=== PATIENT | male | born 1960 ===

== ENCOUNTER 2018-05-09 23:33 | Inpatient (IN) | payer MEDICAID, OTHER ==
[2018-05-10] MEDS ORDERED: Sodium Chloride 0.9% 1,000 ML IV STA ×3 (00:11→01:10)
[2018-05-10 00:24] LABS: BASO # 0.1 K/mm3 (0.0-2.0); BASO % 0.2 % (0.0-3.0); EOS % 0.1 % (1.5-5.0); GRAN # 38.08 (1.4-6.5); GRAN % 84.4 % (50.0-68.0); HEMOGLOBIN 14.8 g/dL (14.0-18.0); LYMPH # 3.1 (1.2-3.4); LYMPH % 6.9 % (22.0-35.0); MEAN CELL VOLUME 95.4 fl (80.0-105.0); MEAN CORPUSCULAR HEMOGLOBIN 30.9 pg (25.0-35.0); MEAN CORPUSCULAR HGB CONC 32.4 g/dl (31.0-37.0); MONO # 3.8 (0.1-0.6); MONO % 8.4 % (1.0-6.0); RBC 4.79 10^6/uL (3.5-6.1); RED CELL DISTRIBUTION WIDTH 12.4 % (11.5-14.5)
[2018-05-10 00:27] LABS: INR 1.45; PROTHROMBIN TIME 16.6 SECONDS (9.4-12.5); WHITE BLOOD COUNT 45.1 10^3/ul (4.5-11.0)
[2018-05-10 00:36] LABS: TROPONIN I 0.03 ng/mL
[2018-05-10 01:00] LABS: VENOUS BLOOD GAS PO2 62 mm/Hg (30-55)
[2018-05-10 01:05] LABS: ALB/GLOB RATIO 2.3 (1.1-1.8); ALT/SGPT 27 U/L (7-56); AST/SGOT 31 U/L (17-59); BLOOD UREA NITROGEN 44 mg/dL (7-21); CALCIUM 9.2 mg/dL (8.4-10.5); GFR NON-AFRICAN AMERICAN 16
[2018-05-10 01:07] LABS: VENOUS BLOOD PH < 6.80 (7.32-7.43)
--- NOTE | 2018-05-10 01:19 | ED PDOC ---
Arrival/HPI - General Chief Complaint: High Blood Sugar Time Seen by Provider: 05/10/18 00:09 Historian: EMS EM Caveat: Acuity of Condition - Critical Care Critical Care Minutes: 45 minutes - History of Present Illness Narrative History of Present Illness (Text): 05/10/18 00:05 58 y/o M w/ h/o HTN, HLD, DM I(w/ insulin pump) presents to the emergency department by EMS after being found writhing in pain and frothing at the mouth at home. Per patient's brother, the patient called him stating he didn't feel well, but was reluctant to call the ambulance for transport to the hospital. EMS was called by the patient's brother. The patient was inadvertently administered glucose on the field prior to checking patient's glucose level. A more complete HPI was unable to be obtained due to the patient's clinical condition PMD: Dr. Daniel Barnes Time/Duration: Prior to Arrival Symptom Course: Worsening Quality: Unable to Describe Severity Level: Severe Activities at Onset: Rest Context: Home Past Medical History - Provider Review Nursing Documentation Reviewed: Yes - Travel History Have you recently traveled outside [place] w/in the past 3 mons?: No - Infectious Disease Hx of Infectious Diseases: None - Cardiac Hx Cardiac Disorders: Yes (AV problems) Hx Hypertension: Yes - Pulmonary Hx Respiratory Disorders: No - Neurological Other/Comment: unresponsive - HEENT Hx HEENT Disorder: No - Renal Hx Renal Disorder: No - Endocrine/Metabolic Hx Diabetes Mellitus Type 1: Yes - Hematological/Oncological Hx Blood Disorders: No - Integumentary Hx Dermatological Disorder: No - Musculoskeletal/Rheumatological Hx Musculoskeletal Disorders: No Hx Falls: Yes - Gastrointestinal Hx Gastrointestinal Disorders: No - Genitourinary/Gynecological Hx Genitourinary Disorders: No - Psychiatric Hx Psychophysiologic Disorder: No Hx Substance Use: No (denied by family) - Surgical History Other/Comment: Unknown by family. - Anesthesia Hx Anesthesia: No - Suicidal Assessment Feels Threatened In Home Enviroment: No Family/Social History - Physician Review Nursing Documentation Reviewed: Yes Family/Social History: No Known Family HX Smoking Status: Unknown If Ever Smoked Hx Alcohol Use: No (denied by family) Hx Substance Use: No (denied by family) Hx Substance Use Treatment: No Allergies/Home Meds Allergies/Adverse Reactions: Allergies No Known Allergies Allergy (Verified 06/30/12 17:03) Home Medications: Home Meds Medication Instructions Recorded Confirmed Atorvastatin Calcium 20 mg PO DAILY 06/30/12 06/30/12 Insulin Aspart, Recombinant 100 unit SC 06/30/12 06/30/12 [Novolog] Insulin Detemir [Levemir] 17 unit SC HS 06/30/12 06/30/12 Niacin [Niaspan] 500 mg PO DAILY 06/30/12 06/30/12 Valsartan [Diovan] 160 mg PO DAILY 06/30/12 06/30/12 Review of Systems - Physician Review All systems were reviewed & negative as marked: Yes - Review of Systems Systems not reviewed;Unavailable: Acuity of Condition Physical Exam Vital Signs Reviewed: Yes Vital Signs Temp Pulse Resp BP Pulse Ox 05/10/18 03:44 122 H 24 118/60 100 05/10/18 01:51 113 H 30 H 108/64 100 05/10/18 00:41 129 H 22 113/58 L 100 05/10/18 00:15 96.5 F L 129 H 22 92/65 L 96 05/09/18 23:56 96.5 F L 129 H 22 92/65 L 96 Temperature: Hypothermic Blood Pressure: Hypotensive Pulse: Tachycardic Respiratory Rate: Normal Appearance: Positive for: Well-Appearing, Non-Toxic, Comfortable Pain Distress: None Mental Status: Positive for: Lethargic Finger Stick Blood Glucose: 500 - Systems Exam Head: Present: Atraumatic, Normocephalic Pupils: Present: PERRL Extroacular Muscles: Present: EOMI Conjunctiva: Present: Normal Mouth: Present: Dry, Drooling Neck: Present: Normal Range of Motion Respiratory/Chest: Present: Clear to Auscultation, Good Air Exchange. No: Respiratory Distress, Accessory Muscle Use Cardiovascular: Present: Regular Rate and Rhythm, Normal S1, S2. No: Murmurs Abdomen: Present: Tenderness. No: Distention, Normal Bowel Sounds, Peritoneal Signs Back: Present: Normal Inspection Upper Extremity: Present: Normal Inspection. No: Cyanosis, Edema Lower Extremity: Present: Normal Inspection. No: Edema Neurological: Present: GCS=15, CN II-XII Intact Skin: Present: Warm, Dry, Normal Color. No: Rashes Psychiatric: Present: Agitated, Lethargic, Other Medical Decision Making ED Course and Treatment: 05/10/18 00:05 Impression: 58 y/o M w/ h/o DM I found writhing in pain most suspicious of DKA Plan: -- VBG -- Labs -- EKG -- Ativan --Rocephin & vancomycin --IV Fluids --Insulin drip --Calcium gluconate, albuterol, sodium bicarbonate -- Blood Cultures -- UA/Urine cultures -- Reassess and disposition Prior Visits: Notes and results from pervious visits were reviewed. Progress Notes: EKG ordered and interpreted by me Interpretation: A-Fib with RVR at 148 BPM. 05/10/18 01:13 Patient's leukocytes 45.1, lactated 11.8, and Glucose 1173. Potassium noted to be 8.5. Code sepsis called. Antibiotics and fluids ordered. Hyperkalemia protocol initiated. Call placed to Dr. Rodarte(bin worker). 05/10/18 02:03 Discussed with patient's brother who is at bed side. States patient had been having personal issues recently and having poor control of glucose levels and refused to present to the hospital. 05/10/18 02:26 Case discussed with medical unit secretary and Dr. Garibay who is aware and agrees with plan to admit to ICU. Accepts patient into hospitalist service. - Critical Care Critical Care Minutes: 45 minutes - Lab Interpretations Microbiology Results: Microbiology Results 05/10/18 00:20 Blood Blood Culture - Preliminary NO GROWTH AFTER 48 HOURS 05/09/18 23:50 Blood Blood Culture - Preliminary NO GROWTH AFTER 48 HOURS Lab Results: 05/09/18 23:50 05/09/18 23:50 Lab Results 05/10/18 02:50: pO2 49, VBG pH < 6.80 L*, VBG pCO2 37.0 L, VBG HCO3 TEST NOT PERFORMED, VBG O2 Sat (Calc) 83.9 H, VBG Base Excess TEST NOT PERFORMED, VBG Potassium 8.1 H*, Sodium 130.0 L, Chloride 89.0 L, Glucose > 750 H*, Lactate 10.3 H*, FiO2 21.0, Venous Blood Potassium 8.1 H* 05/10/18 02:43: POC Glucose (mg/dL) > 500 H* 05/09/18 23:50: pO2 62 H, VBG pH < 6.80 L*, VBG pCO2 24.0 L, VBG O2 Sat (Calc) 87.2 H, VBG Potassium 8.7 H*, Sodium 128.0 L, Chloride 80.0 L, Glucose > 750 H* D, Lactate 11.8 H*, FiO2 21.0, Venous Blood Potassium 8.7 H* 05/09/18 23:50: Sodium 130 L, Chloride 87 L, Potassium 8.0 H* D, Carbon Dioxide < 5 L D, Anion Gap 46 H, BUN 44 H, Creatinine 3.9 H, Est GFR ( Amer) 19, Est GFR (Non-Af Amer) 16, Random Glucose 1173 H* D, Calcium 9.2, Total Bilirubin 0.4, AST 31, ALT 27, Alkaline Phosphatase 119, Troponin I 0.03 D, Total Protein 7.2, Albumin 5.0 H, Globulin 2.2, Albumin/Globulin Ratio 2.3 H, Lipase 4784 H 05/09/18 23:50: PT 16.6 H, INR 1.45, APTT 31.0 05/09/18 23:50: WBC 45.1 H* D, RBC 4.79, Hgb 14.8, Hct 45.7, MCV 95.4, MCH 30.9 , MCHC 32.4, RDW 12.4, Plt Count 553 H, MPV 11.0, Gran % 84.4 H, Lymph % (Auto) 6.9 L, [place] % (Auto) 8.4 H, Eos % (Auto) 0.1 L, Baso % (Auto) 0.2, Gran # 38.08 H, Lymph # (Auto) 3.1, [place] # (Auto) 3.8 H, Eos # (Auto) 0.0, Baso # (Auto) 0.10 05/09/18 23:37: POC Glucose (mg/dL) > 500 H* I have reviewed the lab results: Yes - RAD Interpretation Radiology Orders: 05/10/18 02:24 CHEST PORTABLE [RAD] Stat - EKG Interpretation Interpreted by ED Physician: Yes Type: 12 lead EKG - Medication Orders Current Medication Orders: Acetaminophen (Tylenol 325mg Tab) 650 mg PO Q6H PRN PRN Reason: Headache Last Admin: 05/12/18 11:22 Dose: 650 mg MAR Pain/Vitals Document 05/12/18 11:22 [facility] (Rec: 05/12/18 11:22 [facility] [id number]) Pain Reassessment Is This A Pain ReAssessment? No Sleep Is patient sleeping during reassessment? No Pain Scale Used Pain Scale Used Numeric Location Pain Location Body Excel Expert Description Intermittent Aspirin (Ecotrin) 81 mg PO DAILY [facility] Last Admin: 05/12/18 09:38 Dose: 81 mg Atorvastatin Calcium (Lipitor) 40 mg PO DIN [facility] Last Admin: 05/11/18 17:14 Dose: Dextrose (Dextrose 50% Inj) 0 ml IV STAT PRN; Protocol PRN Reason: Hypoglycemia Protocol Dextrose (Dextrose 5% In Water 1000 Ml) 1,000 mls @ 0 mls/hr IV .Q0M PRN; Protocol; Per Protocol PRN Reason: Hypoglycemia Protocol Heparin Sodium/Sodium Chloride (Heparin 90500 Units/250ml 1/2 Normal Saline) 25 ,000 units in 250 mls @ 10.102 mls/hr IV .Q24H [facility]; 12 UNITS/KG/HR PRN Reason: Protocol Last Admin: 05/12/18 01:19 Dose: 12 units/kg/hr, 10.102 mls/hr eMAR Start Stop Document 05/12/18 01:19 [facility] (Rec: 05/12/18 01:20 [id number]) Intravenous Solution Start Date 05/12/18 Start Time 01:19 Titration Intervention Document 05/12/18 01:19 MPD (Rec: 05/12/18 01:20 [id number]) Titration Intake Cumulative Intake (Rx) 250 Waste Amount 0 Container Volume 250 Titration Dosing Titration Dose 12 IV Rate 10.102 Intake/Decrease Started/Running Cumulative Dose 67023 Potassium Chloride 20 meq/ (Sodium Chloride) 1,010 mls @ 75 mls/hr IV .[id number] [facility] Insulin Detemir (Levemir) 30 unit SC HS [facility] Insulin Human Lispro (Humalog Low) 0 units SC ACHS [facility] PRN Reason: Protocol Last Admin: 05/12/18 11:30 Dose: Not Given Non-Admin Reason: Blood Sugar Parameter MAR Blood Glucose Document 05/12/18 11:30 [facility] (Rec: 05/12/18 14:11 [facility] [id number]) Blood Glucose Finger Stick Blood Glucose (70-120) 263 Insulin Human Lispro (Humalog) 10 units SC AC [facility] Last Admin: 05/12/18 11:18 Dose: 10 unit MAR Blood Glucose Document 05/12/18 11:18 [facility] (Rec: 05/12/18 11:18 [facility] [id number]) Blood Glucose Finger Stick Blood Glucose (70-120) 263 Subcutaneous Administrations Document 05/12/18 11:18 [facility] (Rec: 05/12/18 11:18 [facility] [id number]) Injection Site MAR Injection Site Right Arm Charges for Administration # of Subcutaneous Administrations 1 Metoprolol Tartrate (Lopressor) 25 mg PO BID [facility] Pantoprazole Sodium (Protonix Ec Tab) 40 mg PO 0600 [facility] Discontinued Medications Calcium Gluconate (Calcium Gluconate Iv) 1,000 mg IVP ONCE ONE Stop: 05/10/18 02:24 Last Admin: 05/10/18 02:38 Dose: 1,000 mg IVP Administration Document 05/10/18 02:38 CNR (Rec: 05/10/18 02:38 CNR [id number]) Charges for Administration # of IVP Administrations 1 Heparin Sodium (Porcine) (Heparin) 5,000 units SC 0700 [facility] PRN Reason: Protocol Heparin Sodium (Porcine) (Heparin) 5,000 units SC BID [facility] PRN Reason: Protocol Last Admin: 05/10/18 18:55 Dose: 5,000 units Subcutaneous Administrations Document 05/10/18 18:55 [facility] (Rec: 05/10/18 18:55 [facility] [id number]) Charges for Administration # of Subcutaneous Administrations 1 Sodium Chloride (Sodium Chloride 0.9%) 1,000 mls @ 999 mls/hr IV .Q1H1M STA Stop: 05/10/18 01:11 Last Admin: 05/10/18 00:23 Dose: 999 mls/hr eMAR Start Stop Document 05/10/18 00:23 CNR (Rec: 05/10/18 00:23 CNR [id number]) Intravenous Solution Start Date 05/10/18 Start Time 00:23 End Date 05/10/18 End time 01:23 Total Infusion Time 60 Sodium Chloride (Sodium Chloride 0.9%) 1,000 mls @ 999 mls/hr IV .Q1H1M STA Stop: 05/10/18 02:09 Last Admin: 05/10/18 01:39 Dose: 999 mls/hr eMAR Start Stop Document 05/10/18 01:39 CNR (Rec: 05/10/18 01:39 CNR [id number]) Intravenous Solution Start Date 05/10/18 Start Time 01:39 End Date 05/10/18 End time 02:39 Total Infusion Time 60 Sodium Chloride (Sodium Chloride 0.9%) 1,000 mls @ 999 mls/hr IV .Q1H1M STA Stop: 05/10/18 02:10 Last Admin: 05/10/18 02:07 Dose: 999 mls/hr eMAR Start Stop Document 05/10/18 02:07 CNR (Rec: 05/10/18 02:07 CNR [id number]) Intravenous Solution Start Date 05/10/18 Start Time 02:07 End Date 05/10/18 End time 03:07 Total Infusion Time 60 Ceftriaxone Sodium (Rocephin 1 Gram Ivpb) 1 gm in 100 mls @ 100 mls/hr IVPB ONCE ONE PRN Reason: Protocol Stop: 05/10/18 02:21 Last Admin: 05/10/18 01:38 Dose: 100 mls/hr eMAR Start Stop Document 05/10/18 01:38 CNR (Rec: 05/10/18 01:38 CNR [id number]) Intravenous Solution Start Date 05/10/18 Start Time 01:38 End Date 05/10/18 End time 02:08 Total Infusion Time 30 Vancomycin HCl (Vancomycin 1gm) 1 gm in 250 mls @ 167 mls/hr IVPB STAT STA PRN Reason: Protocol Stop: 05/10/18 02:51 Last Admin: 05/10/18 02:13 Dose: 167 mls/hr eMAR Start Stop Document 05/10/18 02:13 CNR (Rec: 05/10/18 02:13 CNR [id number]) Intravenous Solution Start Date 05/10/18 Start Time 02:13 End Date 05/10/18 End time 03:43 Total Infusion Time 90 Insulin Human Regular 100 (units/ Sodium Chloride) 100 mls @ 6 mls/hr IV .[id number] PRN; Protocol; Per Protocol PRN Reason: TITRATE PER MD ORDER Last Admin: 05/10/18 03:01 Dose: 6 mls/hr eMAR Start Stop Document 05/10/18 03:01 CNR (Rec: 05/10/18 03:01 CNR [id number]) Intravenous Solution Start Date 05/10/18 Start Time 03:01 MAR Blood Glucose Document 05/10/18 03:01 CNR (Rec: 05/10/18 03:01 CNR [id number]) Blood Glucose Finger Stick Blood Glucose (70-120) 500 Sodium Chloride (Sodium Chloride 0.45%) 1,000 mls @ 1,000 mls/hr IV .Q1H [facility] Last Admin: 05/10/18 03:01 Dose: 1,000 mls/hr eMAR Start Stop Document 05/10/18 03:01 CNR (Rec: 05/10/18 03:01 CNR [id number]) Intravenous Solution Start Date 05/10/18 Start Time 03:01 End Date 05/10/18 End time 04:01 Total Infusion Time 60 Sodium Chloride (Sodium Chloride 0.45%) 1,000 mls @ 1,000 mls/hr IV .Q1H [facility] Stop: 05/10/18 04:14 Last Admin: 05/10/18 03:19 Dose: 1,000 mls/hr eMAR Start Stop Document 05/10/18 03:19 CNR (Rec: 05/10/18 03:20 CNR [id number]) Intravenous Solution Start Date 05/10/18 Start Time 03:20 End Date 05/10/18 End time 04:20 Total Infusion Time 60 Sodium Chloride (Sodium Chloride 0.9%) 1,000 mls @ 200 mls/hr IV .Q5H [facility] Last Admin: 05/10/18 08:00 Dose: 200 mls/hr eMAR Start Stop Document 05/10/18 08:00 [facility] (Rec: 05/10/18 09:18 [id number]) Intravenous Solution Start Date 05/10/18 Start Time 08:00 Doxycycline Hyclate 100 mg/ (Sodium Chloride) 100 mls @ 100 mls/hr IVPB Q12 [facility] PRN Reason: Protocol Last Admin: 05/10/18 09:08 Dose: 100 mls/hr Ceftriaxone Sodium (Rocephin 1 Gram Ivpb) 1 gm in 100 mls @ 100 mls/hr IVPB DAILY [facility] PRN Reason: Protocol Last Admin: 05/10/18 09:04 Dose: 100 mls/hr eMAR Start Stop Document 05/10/18 09:04 [facility] (Rec: 05/10/18 09:04 [facility] [place] [id number]) Intravenous Solution Start Date 05/10/18 Start Time 09:04 End Date 05/10/18 End time 10:04 Total Infusion Time 60 Insulin Human Regular 100 (units/ Sodium Chloride) 100 mls @ 0 mls/hr IV .Q0M PRN; Protocol; Per Protocol PRN Reason: TITRATE PER MD ORDER Insulin Human Regular 100 (units/ Sodium Chloride) 100 mls @ 16 mls/hr IV .Q6H15M PRN; Protocol; 16 UNITS/HR PRN Reason: TITRATE PER MD ORDER Last Titration: 05/10/18 18:30 Dose: 0 units/hr, 0 mls/hr Titration Intervention Document 05/10/18 18:30 [facility] (Rec: 05/10/18 18:49 [facility] [id number]) Titration Intake Titration Intake 3 Cumulative Intake 59 Cumulative Intake (Rx) 159 Waste Amount 0 Container Volume 41 Titration Dosing Titration Dose 0 IV Rate 0 Intake/Decrease Paused Cumulative Dose 159 Meropenem 500 mg/ Sodium (Chloride) 50 mls @ 100 mls/hr IVPB Q12 [facility] PRN Reason: Protocol Stop: 05/17/18 10:16 Last Admin: 05/11/18 21:27 Dose: 100 mls/hr eMAR Start Stop Document 05/11/18 21:27 MPD (Rec: 05/11/18 21:28 MPD [facility] [id number]) Intravenous Solution Start Date 05/11/18 Start Time 21:25 End Date 05/11/18 End time 21:55 Total Infusion Time 30 Calcium Gluconate 1,000 mg/ (Dextrose) 110 mls @ 110 mls/hr IVPB ONCE ONE Stop: 05/10/18 13:32 Last Admin: 05/10/18 14:10 Dose: 110 mls/hr eMAR Start Stop Document 05/10/18 14:10 [facility] (Rec: 05/10/18 14:10 [facility] [id number]) Intravenous Solution Start Date 05/10/18 Start Time 14:10 End Date 05/10/18 End time 15:10 Total Infusion Time 60 Potassium Chloride (Potassium Chloride 10 Meq/100 Ml) 10 meq in 100 mls @ 50 mls/hr IVPB Q2H [facility] Stop: 05/10/18 16:44 Last Admin: 05/10/18 13:58 Dose: 50 mls/hr eMAR Start Stop Document 05/10/18 13:58 [facility] (Rec: 05/10/18 13:59 [id number]) Intravenous Solution Start Date 05/10/18 Start Time 13:58 End Date 05/10/18 End time 15:58 Total Infusion Time 120 Magnesium 2 gm/50 ml NS (Magnesium Sulfate 2 Gm/50 Ml Ns) 2 gm in 50 mls @ 50 mls/hr IVPB ONCE ONE Stop: 05/10/18 15:41 Last Admin: 05/10/18 16:03 Dose: 50 mls/hr eMAR Start Stop Document 05/10/18 16:03 [facility] (Rec: 05/10/18 16:04 [id number]) Intravenous Solution Start Date 05/10/18 Start Time 16:04 End Date 05/10/18 End time 17:04 Total Infusion Time 60 Potassium Chloride (Potassium Chloride 10 Meq/100 Ml) 10 meq in 100 mls @ 50 mls/hr IVPB Q2H [facility] Stop: 05/10/18 18:44 Last Admin: 05/10/18 16:43 Dose: 50 mls/hr eMAR Start Stop Document 05/10/18 16:43 [facility] (Rec: 05/10/18 16:44 [facility] [id number]) Intravenous Solution Start Date 05/10/18 Start Time 18:10 End Date 05/10/18 End time 20:10 Total Infusion Time 120 Sodium Chloride (Sodium Chloride 0.45%) 1,000 mls @ 75 mls/hr IV .[id number] [facility] Last Admin: 05/10/18 16:10 Dose: 75 mls/hr eMAR Start Stop Document 05/10/18 16:10 [facility] (Rec: 05/10/18 16:11 [id number]) Intravenous Solution Start Date 05/10/18 Start Time 16:11 Potassium Chloride 20 meq/ (Sodium Chloride) 1,010 mls @ 150 mls/hr IV .Q6H44M [facility] Last Admin: 05/10/18 18:54 Dose: 150 mls/hr eMAR Start Stop Document 05/10/18 18:54 [facility] (Rec: 05/10/18 18:54 [id number]) Intravenous Solution Start Date 05/10/18 Start Time 18:54 Potassium Chloride 20 meq/ (Sodium Chloride) 1,010 mls @ 100 mls/hr IV .Q10H6M [facility] Last Admin: 05/12/18 05:00 Dose: 100 mls/hr eMAR Start Stop Document 05/12/18 05:00 MPD (Rec: 05/12/18 07:42 MPD [id number]) Intravenous Solution Start Date 05/12/18 Start Time 05:00 Insulin Detemir (Levemir) 20 unit SC [facility] Last Admin: 05/10/18 21:58 Dose: 20 units MAR Blood Glucose Document 05/10/18 21:58 [facility] (Rec: 05/10/18 21:59 [facility] [id number]) Blood Glucose Finger Stick Blood Glucose (70-120) 209 Subcutaneous Administrations Document 05/10/18 21:58 [facility] (Rec: 05/10/18 21:59 [facility] [id number]) Injection Site MAR Injection Site Right Abdomen Charges for Administration # of Subcutaneous Administrations 1 Insulin Detemir (Levemir) 24 unit SC [facility] Last Admin: 05/11/18 21:32 Dose: 24 u MAR Blood Glucose Document 05/11/18 21:32 MPD (Rec: 05/11/18 21:33 MPD [id number]) Blood Glucose Finger Stick Blood Glucose (70-120) 76 Subcutaneous Administrations Document 05/11/18 21:32 MPD (Rec: 05/11/18 21:33 MPD [id number]) Injection Site MAR Injection Site Left Deltoid Charges for Administration # of Subcutaneous Administrations 1 Insulin Human Lispro (Humalog) 8 units SC [facility] Last Admin: 05/11/18 10:03 Dose: 8 u MAR Blood Glucose Document 05/11/18 10:03 MMA (Rec: 05/11/18 10:03 MMA [id number]) Blood Glucose Finger Stick Blood Glucose (70-120) 245 Subcutaneous Administrations Document 05/11/18 10:03 MMA (Rec: 08/18/18 10:03 MMA [id number]) Injection Site MAR Injection Site Left Arm Charges for Administration # of Subcutaneous Administrations 1 Insulin Human Lispro (Humalog) 10 units SC AC [facility] Last Admin: 05/11/18 17:21 Dose: 10 u MAR Blood Glucose Document 05/11/18 17:21 MMA (Rec: 05/11/18 17:21 [facility] [id number]) Blood Glucose Finger Stick Blood Glucose (70-120) 187 Subcutaneous Administrations Document 05/11/18 17:21 MMA (Rec: 05/11/18 17:21 [facility] [id number]) Injection Site MAR Injection Site Right Abdomen Charges for Administration # of Subcutaneous Administrations 1 Insulin Human Lispro (Humalog) 6 units SC AC [facility] Last Admin: 05/12/18 08:17 Dose: 8 unit MAR Blood Glucose Document 05/12/18 08:17 [facility] (Rec: 05/12/18 08:17 [id number] Blood Glucose Finger Stick Blood Glucose (70-120) 500 Subcutaneous Administrations Document 05/12/18 08:17 KA (Rec: 05/12/18 08:17 [facility] [id number]) Injection Site MAR Injection Site Right Arm Charges for Administration # of Subcutaneous Administrations 1 Insulin Human Lispro (Humalog) 12 units SC ONCE ONE Stop: 05/12/18 07:22 Insulin Human Regular (Humulin R) 10 units SC STAT [facility] Stop: 05/10/18 02:33 Last Admin: 05/10/18 02:38 Dose: 10 u Subcutaneous Administrations Document 05/10/18 02:38 CNR (Rec: 05/10/18 02:38 CNR [id number]) Charges for Administration # of Subcutaneous Administrations 1 Insulin Human Regular (Humulin R) 6 units IV STAT [facility] Stop: 05/10/18 03:26 Last Admin: 05/10/18 03:38 Dose: 6 u eMAR Start Stop Document 05/10/18 03:38 CNR (Rec: 05/10/18 03:38 CNR [id number]) Intravenous Solution Start Date 05/10/18 Start Time 03:38 Lorazepam (Ativan) 1 mg IVP ONCE ONE PRN Reason: Protocol Stop: 05/10/18 01:57 Last Admin: 05/10/18 02:07 Dose: 1 mg IVP Administration Document 05/10/18 02:07 CNR (Rec: 05/10/18 02:07 CNR [id number]) Charges for Administration # of IVP Administrations 1 Metoprolol Tartrate (Lopressor) 25 mg PO STAT [facility] Stop: 05/10/18 22:16 Last Admin: 05/10/18 23:07 Dose: 25 mg MAR Pulse and Blood Pressure Document 05/10/18 23:07 [facility] (Rec: 05/10/18 23:09 [facility] [id number]) Pulse Pulse Rate (60-90) 90 Blood Pressure Blood Pressure (100/60-150/90) 110/73 Metoprolol Tartrate (Lopressor) 25 mg PO DAILY [facility] Last Admin: 05/12/18 09:38 Dose: 25 mg MAR Pulse and Blood Pressure Document 05/12/18 09:38 KA (Rec: 05/12/18 09:41 KA [id number]) Blood Pressure Blood Pressure (100/60-150/90) 151/90 Pantoprazole Sodium (Protonix Inj) 40 mg IVP 0700 [facility] Last Admin: 05/12/18 07:13 Dose: 40 mg IVP Administration Document 05/12/18 07:13 MPD (Rec: 05/12/18 07:14 MPD [facility] [id number]) Charges for Administration # of IVP Administrations 1 Pantoprazole Sodium (Protonix Inj) 40 mg IVP Q12 [facility] Last Admin: 05/11/18 21:30 Dose: 40 mg IVP Administration Document 05/11/18 21:30 MPD (Rec: 05/11/18 21:30 MPD [facility] [id number]) Charges for Administration # of IVP Administrations 1 Pneumococcal Polyvalent Vaccine (Pneumovax 23 Vaccine) 0.5 ml IM .ONCE ONE Stop: 05/10/18 09:04 Potassium Chloride (Potassium Chloride Oral Soln) 40 meq PO STAT [facility] Stop: 05/10/18 14:43 Last Admin: 05/10/18 16:04 Dose: 40 meq Sodium Bicarbonate (Sodium Bicarbonate 8.4% (50 Meq) Syringe) 50 meq IVP ONCE ONE Stop: 05/10/18 02:24 Last Admin: 05/10/18 02:37 Dose: 50 meq IVP Administration Document 05/10/18 02:37 CNR (Rec: 05/10/18 02:38 CNR [id number]) Charges for Administration # of IVP Administrations 1 Sodium Bicarbonate (Sodium Bicarbonate 8.4% (50 Meq) Syringe) 50 meq IVP ONCE ONE Stop: 05/10/18 02:41 Last Admin: 05/10/18 02:37 Dose: 50 meq IVP Administration Document 05/10/18 02:37 CNR (Rec: 05/10/18 02:42 CNR [id number]) Charges for Administration # of IVP Administrations 1 Sodium Bicarbonate (Sodium Bicarbonate 8.4% (50 Meq) Syringe) 100 meq IVP ONCE ONE Stop: 05/10/18 03:22 Last Admin: 05/10/18 03:37 Dose: 100 meq IVP Administration Document 05/10/18 03:37 CNR (Rec: 05/10/18 03:37 CNR [id number]) Charges for Administration # of IVP Administrations 1 - Scribe Statement The provider has reviewed the documentation as recorded by the Chance Aleman Provider Scribe Attestation: All medical record entries made by the Scribmarilee were at my direction and personally dictated by me. I have reviewed the chart and agree that the record accurately reflects my personal performance of the history, physical exam, medical decision making, and the department course for this patient. I have also personally directed, reviewed, and agree with the discharge instructions and disposition. Disposition/Present on Arrival - Present on Arrival Any Indicators Present on Arrival: No History of DVT/PE: No History of Uncontrolled Diabetes: No Urinary Catheter: No History of Decub. Ulcer: No History Surgical Site Infection Following: None - Disposition Have Diagnosis and Disposition been Completed?: Yes Diagnosis: DKA (diabetic ketoacidoses) Disposition: HOSPITALIZED Disposition Time: 02:00 Patient Plan: ICU Condition: SERIOUS
[2018-05-10] MEDS ORDERED: Vancomycin 1gm in NS 250ml 1 GM/250 ML BAG IVPB STA (01:22)
[2018-05-10] MEDS ORDERED: cefTRIAXone 1 gm 1 GM/100 ML BAG IVPB ONE (01:22)
[2018-05-10 01:37] LABS: LIPASE 4784 U/L (23-300)
[2018-05-10] MEDS ORDERED: Sodium Bicarbonate (8.4%) 50 Meq Syringe IVP ONE ×4 (02:23→03:31)
[2018-05-10] MEDS ORDERED: Insulin Regular 100 UNITS in Sodium Chloride 0.9% 99 ML IV PRN ×3 (02:26→08:04)
[2018-05-10] MEDS ORDERED: Insulin Regular 1 UNITS/0.01 ML ML SC STA (02:32)
[2018-05-10] MEDS ORDERED: Insulin Regular 1 UNITS/0.01 ML ML ONE (02:32)
[2018-05-10] MEDS ORDERED: SODIUM BICARBONATE IV SCH (02:45)
[2018-05-10] MEDS ORDERED: SODIUM CHLORIDE 0.45% IV SCH (02:45)
[2018-05-10] MEDS ORDERED: Dextrose 50% SYRINGE Inj (50 ml) IV PRN (02:49)
[2018-05-10] MEDS ORDERED: Sodium Chloride 0.45% 1,000 ML IV SCH ×3 (03:00→15:30)
[2018-05-10 03:06] LABS: VENOUS BLOOD GAS PO2 49 mm/Hg (30-55)
[2018-05-10 03:15] LABS: VENOUS BLOOD PH < 6.80 (7.32-7.43)
[2018-05-10] MEDS ORDERED: Insulin Regular 1 UNITS/0.01 ML ML IV STA (03:25)
--- NOTE | 2018-05-10 04:19 | CP.PCM.HP ---
<JyotiFernando huntkoko - Last Filed: 05/10/18 05:52> History of Present Illness - History of Present Illness History of Present Illness: Joe Amin, PGY-1, Internal Medicine History and Physical for Dr. Garibay CC: multiple episodes of nausea, vomiting, and diarrhea 58 year old male with past medical history of diabetes with insulin pump, hypertension, bicuspid aortic valve, rhabdomyolysis, and hyperlipidemia presents with hyperventilation and foaming at the mouth on presentation. Patient is altered. Per daughter, patient had chicken two days ago, and yesterday, patient started to have multiple bouts of abdominal pain, nausea, vomiting, and diarrhea all day. Patient was told to come to the emergency department for evaluation and finally did so late last night. Patient's initial blood glucose level was 1173 on presentation. Patient was started on 3 L of IV NS. Per labs, potassium was 8 and VBG showed pH of less than 6.8 so calcium carbonate and bicarbonate were administered in the emergency department. One year ago, patient was admitted to the hospital for a similar presentation. Patient was found to be altered on that admission, and by the time the patient was discharged to [facility], patient's mental status had improved but patient was still slow in mentation and recovered at [facility]. 12 point ROS was unattainable due to mental status. PMH: as stated above. PSH: unknown FMHx: unknown Social History: daughter reports patient does not smoke, drink, or do any recreational drugs PMD: Dr. Edgar and [place] Pharmacy: [facility] on [address] and [place] Insurance: [facility] Present on Admission - Present on Admission Any Indicators Present on Admission: Yes History of DVT/PE: No History of Uncontrolled Diabetes: Yes Review of Systems - Review of Systems Systems not reviewed;Unavailable: Acuity of Condition, Respiratory Distress Past Patient History - Infectious Disease Hx of Infectious Diseases: None - Past Social History Smoking Status: Unknown If Ever Smoked - CARDIAC Hx Cardiac Disorders: Yes (AV problems) Hx Hypertension: Yes - PULMONARY Hx Respiratory Disorders: No - NEUROLOGICAL Other/Comment: unresponsive - HEENT Hx HEENT Problems: No - RENAL Hx Chronic Kidney Disease: No - ENDOCRINE/METABOLIC Hx Diabetes Mellitus Type 1: Yes - HEMATOLOGICAL/ONCOLOGICAL Hx Blood Disorders: No - INTEGUMENTARY Hx Dermatological Problems: No - MUSCULOSKELETAL/RHEUMATOLOGICAL Hx Musculoskeletal Disorders: No Hx Falls: Yes - GASTROINTESTINAL Hx Gastrointestinal Disorders: No - GENITOURINARY/GYNECOLOGICAL Hx Genitourinary Disorders: No - PSYCHIATRIC Hx Psychophysiologic Disorder: No Hx Substance Use: No (denied by family) - SURGICAL HISTORY Other/Comment: Unknown by family. - ANESTHESIA Hx Anesthesia: No Meds Allergies/Adverse Reactions: Allergies Allergy/AdvReac Type Severity Reaction Status Date / Time No Known Allergies Allergy Verified 06/30/12 17:03 Physical Exam - Constitutional Appears: Toxic, In Acute Distress - Head Exam Head Exam: ATRAUMATIC, NORMOCEPHALIC - Eye Exam Eye Exam: PERRL - ENT Exam ENT Exam: Mucous Membranes Dry - Respiratory Exam Additional comments: tachypneic. mild coarse breath sounds - Cardiovascular Exam Cardiovascular Exam: Irregular Rhythm - GI/Abdominal Exam GI & Abdominal Exam: Normal Bowel Sounds, Tenderness (patient in pain with palpation) - Extremities Exam Additional comments: unable to inspect due to condition - Neurological Exam Additional comments: not awake, not alert, not oriented. unable to fully review cranial nerves - Skin Skin Exam: Intact, Normal Color Results - Vital Signs Recent Vital Signs: Last Vital Signs Temp 96.5 F L 05/10/18 00:15 Pulse 122 H 05/10/18 03:44 Resp 24 05/10/18 03:44 BP 118/60 05/10/18 03:44 Pulse Ox 100 05/10/18 03:44 - Labs Result Diagrams: 05/09/18 23:50 05/09/18 23:50 - Impressions Impression: Atrial fibrillation with RVR at 148 bpm Assessment & Plan - Assessment and Plan (Free Text) Assessment: 58 year old male with past medical history of diabetes with insulin pump, hypertension, bicuspid aortic valve, rhabdomyolysis, and hyperlipidemia presents with hyperventilation and foaming at the mouth on presentation. Patient will be admitted for DKA 2/2 to insufficient insulin from insulin pump vs. infection vs. pancreatitis Plan: Diabetic ketoacidosis 2/2 to insufficient insulin from insulin pump vs. infection vs. pancreatitis -Initial blood glucose: 1173 -Accucheck Q1 -BMP Q4 -Hypoglycemia protocol in place -Patient has two peripheral lines currently. Possibly central line in the AM. -Insulin drip started per protocol. Currently receiving 6 U/hr of insulin in 1/ 2 NS. -Patient started on 3L NS in the ED -Sodium Bicarbonate 8.4% 50 meq IVP given twice due to VBG pH<6.8. -Calcium gluconate 1000 given once due to elevated potassium. -SIRS criteria fulfilled on admission 12/26: WBC: 45.1, RR: 22, HR: 129, Temperature: 96.5. -CXR ordered to rule out pneumonia. -UA ordered to rule out UTI. -Abdominal CT: ordered to rule out pancreatitis, or intraabdominal infection -Dr. Fenton, endocrinology, consulted. Follow recommendations. -Blood culture to rule out sepsis. Elevated lipase 2/2 likely to pancreatitis -Lipase: 4784 -Patient has symptoms of nausea, vomiting, abdominal pain. -Awaiting results of CT abdomen. -NPO -No pain medications ordered due to patient's mental status. Hyperkalemia likely 2/2 to DKA -K: 8 -Given 100 mg calcium gluconate. -Patient on insulin drip and bicarbonate. -Continue to trend potassium with BMP Q4 Anion gap metabolic acidosis likely 2/2 to DKA vs. lactic acidosis vs. uremia -Anion gap: 55 -Delta/delta: 43/19 -VBG pH: <6.8 -Repeat VBG in AM -Lactate: 11.8 on admission -Continue IV 1/2 NS with 6U/hr insulin -Given 50 meq IVP sodium bicarbonate twice. -Trend anion gap down to normal. Acute Kidney Injury likely 2/2 to uncontrolled diabetes mellitus type I -BUN/Cr: 44/3.9. Baseline Creatinine is 0.8. Patient had creatinine of 3.7 on past admission however. -Avoid nephrotoxins, IV contrast -Continue 1/2 NS with insulin drip -Continue to monitor. Hypotension likely 2/2 to severe dehydration. -BP: 92/65 on admission. BP has increased to 118/60 -1/2 NS with insulin drip -Continue to monitor. Leukocytosis 2/2 to DKA vs. Infection -Elevated at 45.1 -Continue to monitor. Thrombocytosis likely 2/2 to dehydration -Likely falsely elevated platelet count due to dehydration. -Continue to monitor. Elevated PT -PT: 16.6 -Home medications are unknown so unable to tell if patient is taking anticoagulant medication. -Continue to monitor. Hyponatremia -falsely decreased. Corrected sodium is 147. -Giving 1/2 NS due to normal high sodium level. -Continue to monitor. Hypochloremia -Likely due to multiple episodes of vomiting. -1/2 NS continued. -Continue to monitor on BMP Q4 Elevated albumin -Albumin: 5.0 -Likely 2/2 to dehydration -Continue to monitor. DVT prophylaxis: heparin 5000 subq BID GI prophylaxis: protonix 40 mg daily CODE STATUS After speaking with family and reviewing previous documentation patient's code status was unable to be documented. In discussion with daughter at bedside in ED she mentioned the patient desired to be DNR and DNI on last admission in November 2016. From review of chart, there is no indication of a code status being documented or followed up. Patient follow up with Dr. Edgar and [place] for psychiatric disorders. Attempted to speak with patient's PCP, Dr. Edgar. He was unavel to be reached to discuss patient case and code status. Daughter at bedside provided information from the [place] in [place] where the patient primarily receies his medical attention. Will attempt to reach [place] in the morning to see if there is any documentation regarding code status available. At this time, patient's code status appears to be legally unclear/undefined and thus he will be treated as a full code. Patient seen and assessed with Dr. Garibay. - Date & Time Date: 05/10/18 Time: 04:23 <Mario Garibay P - Last Filed: 05/10/18 07:48> Results - Vital Signs Recent Vital Signs: Last Vital Signs Temp 96.5 F L 05/10/18 00:15 Pulse 116 H 05/10/18 04:52 Resp 30 H 05/10/18 04:52 BP 119/45 L 05/10/18 04:52 Pulse Ox 100 05/10/18 04:52 - Labs Result Diagrams: 05/10/18 05:35 05/10/18 05:35 Labs: Laboratory Results - last 24 hr 05/10/18 05/10/18 05/10/18 04:50 05:19 05:35 WBC RBC Hgb Hct MCV MCH MCHC RDW Plt Count MPV Gran % Lymph % (Auto) [place] % (Auto) Eos % (Auto) Baso % (Auto) Gran # Lymph # (Auto) [place] # (Auto) Eos # (Auto) Baso # (Auto) Neutrophils % (Manual) Band Neutrophils % Lymphocytes % (Manual) Monocytes % (Manual) Platelet Evaluation pO2 VBG pH VBG pCO2 VBG HCO3 VBG Total CO2 VBG O2 Sat (Calc) VBG Base Excess VBG Potassium Sodium 134 Chloride 98 Glucose Lactate FiO2 Potassium 4.7 Carbon Dioxide 7 L D Anion Gap 34 H BUN 48 H Creatinine 3.3 H Est GFR ( Amer) 24 Est GFR (Non-Af Amer) 19 POC Glucose (mg/dL) > 500 H* Random Glucose 742 H* D Calcium 7.4 L Phosphorus 4.1 Magnesium 2.2 Total Bilirubin 0.7 AST 36 ALT 23 Alkaline Phosphatase 71 Total Protein 5.7 L Albumin 3.6 Globulin 2.2 Albumin/Globulin Ratio 1.6 Venous Blood Potassium Urine Color Yellow Urine Appearance Sl cloudy Urine pH 6.0 Ur Specific [place] 1.020 Urine Protein 30 H Urine Glucose (UA) >=1000 Urine Ketones 40 H Urine Blood Large H Urine Nitrate Negative Urine Bilirubin Negative Urine Urobilinogen 0.2 Ur Leukocyte Esterase Negative Urine RBC 1 - 3 Urine WBC 1 - 3 Ur Epithelial Cells 1 - 3 Urine Bacteria Rare 05/10/18 05/10/18 05/10/18 05:35 05:35 07:23 WBC 35.7 H* D RBC 4.08 Hgb 12.4 L D Hct 35.1 L MCV 86.0 D MCH 30.4 MCHC 35.3 RDW 11.8 Plt Count 325 MPV 10.0 Gran % 83.5 H Lymph % (Auto) 7.5 L [place] % (Auto) 8.9 H Eos % (Auto) 0.0 L Baso % (Auto) 0.1 Gran # 29.82 H Lymph # (Auto) 2.7 [place] # (Auto) 3.2 H Eos # (Auto) 0.0 Baso # (Auto) 0.02 Neutrophils % (Manual) 83 H Band Neutrophils % 7 H Lymphocytes % (Manual) 4 L Monocytes % (Manual) 6 Platelet Evaluation Normal pO2 34 VBG pH 7.12 L* VBG pCO2 26.0 L VBG HCO3 8.5 L VBG Total CO2 9.3 L VBG O2 Sat (Calc) 76.4 H VBG Base Excess -19.4 L VBG Potassium 4.5 Sodium 133.0 Chloride 95.0 L Glucose 685 H* Lactate 4.6 H* FiO2 21.0 Potassium Carbon Dioxide Anion Gap BUN Creatinine Est GFR ( Amer) Est GFR (Non-Af Amer) POC Glucose (mg/dL) > 500 H* Random Glucose Calcium Phosphorus Magnesium Total Bilirubin AST ALT Alkaline Phosphatase Total Protein Albumin Globulin Albumin/Globulin Ratio Venous Blood Potassium 4.5 Urine Color Urine Appearance Urine pH Ur Specific [place] Urine Protein Urine Glucose (UA) Urine Ketones Urine Blood Urine Nitrate Urine Bilirubin Urine Urobilinogen Ur Leukocyte Esterase Urine RBC Urine WBC Ur Epithelial Cells Urine Bacteria Attending/Attestation - Attestation I have personally seen and examined this patient.: Yes I have fully participated in the care of the patient.: Yes I have reviewed all pertinent clinical information: Yes Notes (Text): 05/10/18 07:40 58 M who has prior episodes of DKA on insulin pump, ptst, htn, hyperlipidimia, was sick for 1 day with diarrhea and vomiting, found to have hyperglycemia, brother asked him to come to hospital but he initially refused, later [place] police was called when he stopped answering the phone calls and was found sob, frothing in the mouth, in ER found to be DKA ph of 6.8, K8, elevated creat 3.9, lipase 4000, he received in all 200meq of sodium bicarb, insulin bolus 16 units and drip and 5 lit fluid bolus given, abd/pelvis ct done. Improvement in AG, acidsosis, K, creat noticed, RR improved will continue the treatment with ivf, insulin drip, npo, serial lipase, lipid levels along with electrolyte. Patient' s daughter also mentioned in the past patient has opted to be DNR, which still needs to be confirmed from the patient. Gi/DVT prophylaxis. Insulin pump currently on hold.
[2018-05-10 05:25] LABS: URINE BILIRUBIN NEGATIVE (NEGATIVE); URINE BLOOD LARGE (NEGATIVE); URINE GLUCOSE (UA) >=1000 mg/dL (NEGATIVE); URINE LEUKOCYTE ESTERASE NEGATIVE Leu/uL (NEGATIVE); URINE PROTEIN 30 mg/dL (<30 mg/dL); URINE UROBILINOGEN 0.2 E.U./dL (<1 E.U./dL)
--- NOTE | 2018-05-10 05:29 | PCM.SEPTIC ---
Sepsis Progress Note - Reassessment Type Date of Evaluation: 05/10/18 Time of Evaluation: 05:30 Reassessment Type: Non-invasive reassessment - Non Invasive Reassessment Were the most recent vital sign reviewed: Yes Vital Sign (Latest): Temp Pulse Resp BP Pulse Ox 96.5 F L 116 H 30 H 119/45 L 100 05/10/18 00:15 05/10/18 04:52 05/10/18 04:52 05/10/18 04:52 05/10/18 04:52 Cardiovascular: Yes: Tachycardia. No: Edema Respiratory: Yes: Rales, Rhonchi. No: Accessory Muscle Use, Respiratory Distress Capillary Refill: Delayed Pulses: Normal Radial, Normal Dorsalis Pedis, Normal Posterior Tibialis Skin: Normal Color, Warm, Dry Was a central venous oxygen measurement obtained within 6 hours after the presentation of septic shock: No Was a bedside cardiovascular ultrasound performed within 6 hours after the presentation of septic shock: No Was a passive leg raise performed or was a fluid challenge performed within 6 hrs of the initial fluid bolus: Yes Passive Leg Raise Result: Negative
[2018-05-10 05:31] LABS: URINE APPEARANCE SL CLOUDY (CLEAR); URINE COLOR YELLOW (YELLOW)
[2018-05-10 05:55] LABS: BASO # 0.02 K/mm3 (0.0-2.0); BASO % 0.1 % (0.0-3.0); GRAN # 29.82 (1.4-6.5); GRAN % 83.5 % (50.0-68.0); LYMPH # 2.7 (1.2-3.4); LYMPH % 7.5 % (22.0-35.0); MEAN CORPUSCULAR HEMOGLOBIN 30.4 pg (25.0-35.0); MEAN CORPUSCULAR HGB CONC 35.3 g/dl (31.0-37.0); MONO # 3.2 (0.1-0.6); MONO % 8.9 % (1.0-6.0); PLATELET COUNT 325 10^3/uL (120.0-450.0); RBC 4.08 10^6/uL (3.5-6.1); RED CELL DISTRIBUTION WIDTH 11.8 % (11.5-14.5)
[2018-05-10 05:59] LABS: URINE BACTERIA RARE (NEG)
[2018-05-10 06:04] LABS: HEMOGLOBIN 12.4 g/dL (14.0-18.0); WHITE BLOOD COUNT 35.7 10^3/ul (4.5-11.0)
[2018-05-10 06:22] LABS: VENOUS BLOOD GAS BASE EXCESS -19.4 mmol/L (0.0-2.0); VENOUS BLOOD GAS PO2 34 mm/Hg (30-55)
[2018-05-10 06:32] LABS: VENOUS BLOOD PH 7.12 (7.32-7.43)
[2018-05-10 06:35] LABS: ALB/GLOB RATIO 1.6 (1.1-1.8); ALBUMIN 3.6 g/dL (3.0-4.8); CALCIUM 7.4 mg/dL (8.4-10.5)
[2018-05-10 06:52] LABS: BAND 7 % (0-2); LYMPHOCYTE 4 % (22.0-35.0); MONOCYTE 6 % (1.0-6.0); NEUTROPHIL 83 % (50.0-70.0); PLATELET ESTIMATE NORMAL (NORMAL)
[2018-05-10] MEDS ORDERED: Sodium Chloride 0.9% 1,000 ML IV SCH (07:30)
--- NOTE | 2018-05-10 07:36 | CP.PCM.CON ---
History of Present Illness - History of Present Illness History of Present Illness: Endocrinology consult note: 58-year-old male with past medical history of diabetes on insulin pump rhabdomyolysis, bicuspid aortic valve, and hyperlipidemia presents with altered mental status, hyperventilation, and foaming from the mouth. As per prior notes and nursing staff the patient had multiple bouts of abdominal pain, nausea , and vomiting, and diarrhea for the past 2 days. Patient reportedly had a similar episode was admitted to the hospital and discharged to a intermediate in which his mental status then improved. In the ED patient's blood glucose level was found to be 1173. Patient was also found to be severely acidotic pH of 6.8 and potassium of 8 with elevated lipase 4784. 12 point review of system was unobtainable due to patient's mental status Review of Systems - Review of Systems Systems not reviewed;Unavailable: Altered Mental Status Past Patient History - Infectious Disease Hx of Infectious Diseases: None - Past Social History Smoking Status: Unknown If Ever Smoked - CARDIAC Hx Cardiac Disorders: Yes (AV problems) Hx Hypertension: Yes - PULMONARY Hx Respiratory Disorders: No - NEUROLOGICAL Other/Comment: unresponsive - HEENT Hx HEENT Problems: No - RENAL Hx Chronic Kidney Disease: No - ENDOCRINE/METABOLIC Hx Diabetes Mellitus Type 1: Yes - HEMATOLOGICAL/ONCOLOGICAL Hx Blood Disorders: No - INTEGUMENTARY Hx Dermatological Problems: No - MUSCULOSKELETAL/RHEUMATOLOGICAL Hx Musculoskeletal Disorders: No Hx Falls: Yes - GASTROINTESTINAL Hx Gastrointestinal Disorders: No - GENITOURINARY/GYNECOLOGICAL Hx Genitourinary Disorders: No - PSYCHIATRIC Hx Psychophysiologic Disorder: No Hx Substance Use: No (denied by family) - SURGICAL HISTORY Other/Comment: Unknown by family. - ANESTHESIA Hx Anesthesia: No Meds Allergies/Adverse Reactions: Allergies Allergy/AdvReac Type Severity Reaction Status Date / Time No Known Allergies Allergy Verified 06/30/12 17:03 - Medications Medications: Current Medications Dextrose (Dextrose 50% Inj) 0 ml IV STAT PRN; Protocol PRN Reason: Hypoglycemia Protocol Heparin Sodium (Porcine) (Heparin) 5,000 units SC BID [place] PRN Reason: Protocol Insulin Human Regular 100 (units/ Sodium Chloride) 100 mls @ 6 mls/hr IV .[id number] PRN; Protocol; Per Protocol PRN Reason: TITRATE PER MD ORDER Last Admin: 05/10/18 03:01 Dose: 6 mls/hr Dextrose (Dextrose 5% In Water 1000 Ml) 1,000 mls @ 0 mls/hr IV .Q0M PRN; Protocol; Per Protocol PRN Reason: Hypoglycemia Protocol Sodium Chloride (Sodium Chloride 0.9%) 1,000 mls @ 200 mls/hr IV .Q5H LIN[place]OD Doxycycline Hyclate 100 mg/ (Sodium Chloride) 100 mls @ 100 mls/hr IVPB Q12 [place]OD PRN Reason: Protocol Ceftriaxone Sodium (Rocephin 1 Gram Ivpb) 1 gm in 100 mls @ 100 mls/hr IVPB DAILY [place]OD PRN Reason: Protocol Pantoprazole Sodium (Protonix Inj) 40 mg IVP 0700 [place]OD Physical Exam - Constitutional Appears: No Acute Distress - ENT Exam ENT Exam: Mucous Membranes Moist - Respiratory Exam Respiratory Exam: Clear to Auscultation Bilateral. absent: Wheezes - Cardiovascular Exam Cardiovascular Exam: Tachycardia, +S1, +S2 - GI/Abdominal Exam GI & Abdominal Exam: Normal Bowel Sounds, Soft. absent: Tenderness - Extremities Exam Extremities exam: Negative for: calf tenderness, pedal edema - Skin Skin Exam: Intact, Warm Results - Vital Signs Recent Vital Signs: Last Vital Signs Temp 96.5 F L 05/10/18 00:15 Pulse 116 H 05/10/18 04:52 Resp 30 H 05/10/18 04:52 BP 119/45 L 05/10/18 04:52 Pulse Ox 100 05/10/18 04:52 - Labs Result Diagrams: 05/10/18 05:35 05/10/18 05:35 Labs: Laboratory Results - last 24 hr 05/10/18 05/10/18 05/10/18 04:50 05:19 05:35 WBC RBC Hgb Hct MCV MCH MCHC RDW Plt Count MPV Gran % Lymph % (Auto) [place] % (Auto) Eos % (Auto) Baso % (Auto) Gran # Lymph # (Auto) [place] # (Auto) Eos # (Auto) Baso # (Auto) Neutrophils % (Manual) Band Neutrophils % Lymphocytes % (Manual) Monocytes % (Manual) Platelet Evaluation pO2 VBG pH VBG pCO2 VBG HCO3 VBG Total CO2 VBG O2 Sat (Calc) VBG Base Excess VBG Potassium Sodium 134 Chloride 98 Glucose Lactate FiO2 Potassium 4.7 Carbon Dioxide 7 L D Anion Gap 34 H BUN 48 H Creatinine 3.3 H Est GFR ( Amer) 24 Est GFR (Non-Af Amer) 19 POC Glucose (mg/dL) > 500 H* Random Glucose 742 H* D Calcium 7.4 L Phosphorus 4.1 Magnesium 2.2 Total Bilirubin 0.7 AST 36 ALT 23 Alkaline Phosphatase 71 Total Protein 5.7 L Albumin 3.6 Globulin 2.2 Albumin/Globulin Ratio 1.6 Venous Blood Potassium Urine Color Yellow Urine Appearance Sl cloudy Urine pH 6.0 Ur Specific [place] 1.020 Urine Protein 30 H Urine Glucose (UA) >=1000 Urine Ketones 40 H Urine Blood Large H Urine Nitrate Negative Urine Bilirubin Negative Urine Urobilinogen 0.2 Ur Leukocyte Esterase Negative Urine RBC 1 - 3 Urine WBC 1 - 3 Ur Epithelial Cells 1 - 3 Urine Bacteria Rare 05/10/18 05/10/18 05:35 05:35 WBC 35.7 H* D RBC 4.08 Hgb 12.4 L D Hct 35.1 L MCV 86.0 D MCH 30.4 MCHC 35.3 RDW 11.8 Plt Count 325 MPV 10.0 Gran % 83.5 H Lymph % (Auto) 7.5 L [place] % (Auto) 8.9 H Eos % (Auto) 0.0 L Baso % (Auto) 0.1 Gran # 29.82 H Lymph # (Auto) 2.7 [place] # (Auto) 3.2 H Eos # (Auto) 0.0 Baso # (Auto) 0.02 Neutrophils % (Manual) 83 H Band Neutrophils % 7 H Lymphocytes % (Manual) 4 L Monocytes % (Manual) 6 Platelet Evaluation Normal pO2 34 VBG pH 7.12 L* VBG pCO2 26.0 L VBG HCO3 8.5 L VBG Total CO2 9.3 L VBG O2 Sat (Calc) 76.4 H VBG Base Excess -19.4 L VBG Potassium 4.5 Sodium 133.0 Chloride 95.0 L Glucose 685 H* Lactate 4.6 H* FiO2 21.0 Potassium Carbon Dioxide Anion Gap BUN Creatinine Est GFR ( Amer) Est GFR (Non-Af Amer) POC Glucose (mg/dL) Random Glucose Calcium Phosphorus Magnesium Total Bilirubin AST ALT Alkaline Phosphatase Total Protein Albumin Globulin Albumin/Globulin Ratio Venous Blood Potassium 4.5 Urine Color Urine Appearance Urine pH Ur Specific [place] Urine Protein Urine Glucose (UA) Urine Ketones Urine Blood Urine Nitrate Urine Bilirubin Urine Urobilinogen Ur Leukocyte Esterase Urine RBC Urine WBC Ur Epithelial Cells Urine Bacteria Assessment & Plan - Assessment and Plan (Free Text) Assessment: 58-year-old male with past medical history of diabetes on insulin pump, rhabdomyolysis, bicuspid aortic valve, and hyperlipidemia presents to the ED with severe sepsis 2/2 DKA. Patient also found to be in acute renal failure, hyperkalemia, and pancreatitis. NPO Anion gap on presentation was 48 Continue insulin drip until the anion gap is closed Continue aggressive fluid hydration Serial CMP's every 4 hours Every hour fingersticks We will repeat electrolytes as necessary Follow-up with a lipid panel ordered Case and plan was discussed in detail with Dr. Eliceo Katz, PGY3
[2018-05-10] MEDS: Insulin Regular 100 UNITS in Sodium Chloride 0.9% 99 ML IV PRN ×2 (08:00→13:21)
[2018-05-10 08:51] LABS: ARTERIAL BLOOD GAS HCO3 12.4 mmol/L (21-28); ARTERIAL BLOOD GAS O2 SAT 99.2 % (95-98); ARTERIAL BLOOD GAS PCO2 24 mm/Hg (35-45); ARTERIAL BLOOD GAS PH 7.32 (7.35-7.45); ARTERIAL BLOOD GAS TCO2 13.1 mmol.L (22-28)
[2018-05-10 09:03] VITALS: BMI 28.2
[2018-05-10] MEDS ORDERED: Pneumococcal 23-Valent Vaccine IM ONE (09:03)
--- NOTE | 2018-05-10 09:33 | CARD ---
APPROVED REPORT Date of service: 05/10/2018 EKG Measurement Heart [id number] <Conclusion> Atrial fibrillation with rapid ventricular response Rightward axis Intraventricular Conduction Block. ST_T Changes.
[2018-05-10] MEDS ORDERED: cefTRIAXone 1 gm 1 GM/100 ML BAG IVPB SCH (10:00)
[2018-05-10 10:38] LABS: CK MB% 3.4 % (2.5-3.0); CK-MB 16.7 ng/mL (0.0-3.6); TROPONIN I 1.03 ng/mL
--- NOTE | 2018-05-10 11:23 | RAD ---
Date of service: 05/10/2018 HISTORY: sob COMPARISON: No prior. FINDINGS: LUNGS: No active pulmonary disease. PLEURA: No significant pleural effusion identified, no pneumothorax apparent. CARDIOVASCULAR: Normal. OSSEOUS STRUCTURES: No significant abnormalities. VISUALIZED UPPER ABDOMEN: Normal. OTHER FINDINGS: None. IMPRESSION: No active disease.
--- NOTE | 2018-05-10 11:40 | CT ---
Date of service: 05/10/2018 PROCEDURE: CT Chest, Abdomen and Pelvis without intravenous contrast HISTORY: Chest pain, abdominal pain. Diabetic ketoacidosis and elevated lipase. COMPARISON: None available. TECHNIQUE: Unenhanced study. Neither oral nor intravenous contrast administered. Radiation dose: Total exam DLP = 1230.87 mGy-cm. This CT exam was performed using one or more of the following dose reduction techniques: Automated exposure control, adjustment of the mA and/or kV according to patient size, and/or use of iterative reconstruction technique. FINDINGS: CT CHEST WITHOUT CONTRAST: LUNGS: Clear. No nodule, mass or consolidation. MEDIASTINUM: Unremarkable. Normal caliber aorta and pulmonary arterial trunk. Normal size heart. LYMPH NODES: Unremarkable. PLEURA: Unremarkable. No pneumothorax. No pleural fluid. BONES: Unremarkable. OTHER FINDINGS: Small hiatal hernia. Dilated and fluid-filled esophagus. No discrete lesions or polypoid masses are identified. CT ABDOMEN AND PELVIS: LIVER: Unremarkable. No gross lesion or ductal dilatation. GALLBLADDER AND BILE DUCTS: Unremarkable. PANCREAS: Unremarkable. No gross lesion or ductal dilatation. SPLEEN: Unremarkable. ADRENALS: Unremarkable. No mass. KIDNEYS AND URETERS: Unremarkable. No hydronephrosis. No solid mass. VASCULATURE: Unremarkable. No aortic aneurysm. BOWEL: Unremarkable. No obstruction. No gross mural thickening. APPENDIX: No abnormalities to suggest acute appendicitis. No right lower quadrant inflammatory processes identified. PERITONEUM: Unremarkable. No free fluid. No free air. LYMPH NODES: Unremarkable. No enlarged lymph nodes. BLADDER: Unremarkable. REPRODUCTIVE: Unremarkable. BONES: No acute fracture. OTHER FINDINGS: Fluid indirect inguinal canal hernia. IMPRESSION: No acute findings related to/accounting for the clinical presentation. Additional benign and/or incidental findings described above. Concordant results (preliminary interpretation) provided by [employer]. Procedure Completed: 04:13. Preliminary ([facility]) Report: Dictated and Authenticated: 06:22. Final Interpretation: 11:39.
[2018-05-10] MEDS: Meropenem 500 MG in Sodium Chloride 0.9% 50 ML IVPB SCH (11:43)
[2018-05-10 12:08] LABS: CALCIUM 6.5 mg/dL (8.4-10.5)
--- NOTE | 2018-05-10 12:16 | CARD ---
APPROVED REPORT Date of service: 05/10/2018 EKG Measurement Heart [id number] <Conclusion> Sinus tachycardia Otherwise normal ECG
--- NOTE | 2018-05-10 13:21 | CP.PCM.CON ---
History of Present Illness - History of Present Illness History of Present Illness: 58 year old male with PMH of insulin dependent DM, HTN, bicuspid aortic valve, history of rhabdomyolysis, dyslipidemia was brought in to [facility] after he was found in his home frothing in the mouth and lethargic. 2 days prior to admission , the patient was complaining about eating chicken but started to make his stomach queasy, and he started having nausea, vomiting and loose bowel movements for 2 days. In the ED, he was noted to be lethargic, with pH of 6.8 and glucose levels in the 1000's. His WBC count was also markedly elevated and his lipase levels were very elevated. Infectious diseases consult is requested to further evaluate and manage. Currently in the ICU, the patient is still lethargic but is arousable and answers few questions, currently not vomiting, complains of some abdominal pain. As per the daughter who was in the room at the time I was examining the patient, the patient does not drink alcoholic beverages. Review of Systems - Review of Systems All systems: reviewed and no additional remarkable complaints except (as per HPI ) Past Patient History - Infectious Disease Hx of Infectious Diseases: None - Past Social History Smoking Status: Unknown If Ever Smoked - CARDIAC Hx Cardiac Disorders: Yes (AV problems) Hx Hypertension: Yes - PULMONARY Hx Respiratory Disorders: No - NEUROLOGICAL Other/Comment: unresponsive - HEENT Hx HEENT Problems: No - RENAL Hx Chronic Kidney Disease: No - ENDOCRINE/METABOLIC Hx Diabetes Mellitus Type 1: Yes - HEMATOLOGICAL/ONCOLOGICAL Hx Blood Disorders: No - INTEGUMENTARY Hx Dermatological Problems: No - MUSCULOSKELETAL/RHEUMATOLOGICAL Hx Musculoskeletal Disorders: No Hx Falls: Yes - GASTROINTESTINAL Hx Gastrointestinal Disorders: No - GENITOURINARY/GYNECOLOGICAL Hx Genitourinary Disorders: No - PSYCHIATRIC Hx Psychophysiologic Disorder: No Hx Substance Use: No (denied by family) - SURGICAL HISTORY Other/Comment: Unknown by family. - ANESTHESIA Hx Anesthesia: No Meds Allergies/Adverse Reactions: Allergies Allergy/AdvReac Type Severity Reaction Status Date / Time No Known Allergies Allergy Verified 06/30/12 17:03 - Medications Medications: Current Medications Dextrose (Dextrose 50% Inj) 0 ml IV STAT PRN; Protocol PRN Reason: Hypoglycemia Protocol Heparin Sodium (Porcine) (Heparin) 5,000 units SC BID [facility] PRN Reason: Protocol Last Admin: 05/10/18 09:02 Dose: 5,000 units Dextrose (Dextrose 5% In Water 1000 Ml) 1,000 mls @ 0 mls/hr IV .Q0M PRN; Protocol; Per Protocol PRN Reason: Hypoglycemia Protocol Sodium Chloride (Sodium Chloride 0.9%) 1,000 mls @ 200 mls/hr IV .Q5H [facility] Last Admin: 05/10/18 08:00 Dose: 200 mls/hr Doxycycline Hyclate 100 mg/ (Sodium Chloride) 100 mls @ 100 mls/hr IVPB Q12 [facility] PRN Reason: Protocol Last Admin: 05/10/18 09:08 Dose: 100 mls/hr Insulin Human Regular 100 (units/ Sodium Chloride) 100 mls @ 16 mls/hr IV .Q6H15M PRN; Protocol; 16 UNITS/HR PRN Reason: TITRATE PER MD ORDER Last Admin: 05/10/18 08:00 Dose: 16 units/hr, 16 mls/hr Meropenem 500 mg/ Sodium (Chloride) 50 mls @ 100 mls/hr IVPB Q12 [facility] PRN Reason: Protocol Stop: 05/17/18 10:16 Pantoprazole Sodium (Protonix Inj) 40 mg IVP 0700 [facility] Last Admin: 05/10/18 09:03 Dose: 40 mg Physical Exam - Constitutional Appears: Other (still lethargic but arousable) - Head Exam Head Exam: NORMAL INSPECTION - Neck Exam Neck exam: Negative for: Meningismus - Respiratory Exam Respiratory Exam: Decreased Breath Sounds. absent: Rales - Cardiovascular Exam Cardiovascular Exam: +S1, +S2 - GI/Abdominal Exam GI & Abdominal Exam: Soft, Tenderness (mild). absent: Distended, Guarding, Rebound, Rigid Results - Vital Signs Recent Vital Signs: Last Vital Signs Temp 99.1 F 05/10/18 05:18 Pulse 98 H 05/10/18 08:10 Resp 23 05/10/18 08:10 BP 107/57 L 05/10/18 08:00 Pulse Ox 100 05/10/18 08:10 - Labs Result Diagrams: 05/10/18 05:35 05/10/18 11:45 Labs: Laboratory Results - last 24 hr 05/10/18 05/10/18 05/10/18 04:50 05:19 05:35 WBC RBC Hgb Hct MCV MCH MCHC RDW Plt Count MPV Gran % Lymph % (Auto) [place] % (Auto) Eos % (Auto) Baso % (Auto) Gran # Lymph # (Auto) [place] # (Auto) Eos # (Auto) Baso # (Auto) Neutrophils % (Manual) Band Neutrophils % Lymphocytes % (Manual) Monocytes % (Manual) Differential Comment Platelet Evaluation pCO2 pO2 HCO3 ABG pH ABG Total CO2 ABG O2 Saturation ABG Base Excess ABG Potassium VBG pH VBG pCO2 VBG HCO3 VBG Total CO2 VBG O2 Sat (Calc) VBG Base Excess VBG Potassium Sodium 134 Chloride 98 Glucose Lactate FiO2 Potassium 4.7 Carbon Dioxide 7 L D Anion Gap 34 H BUN 48 H Creatinine 3.3 H Est GFR ( Amer) 24 Est GFR (Non-Af Amer) 19 POC Glucose (mg/dL) > 500 H* Random Glucose 742 H* D Calcium 7.4 L Phosphorus 4.1 Magnesium 2.2 Total Bilirubin 0.7 AST 36 ALT 23 Alkaline Phosphatase 71 Total Creatine Kinase Total Protein 5.7 L Albumin 3.6 Globulin 2.2 Albumin/Globulin Ratio 1.6 Triglycerides Cholesterol LDL Cholesterol Direct HDL Cholesterol Lipase Arterial Blood Potassium Venous Blood Potassium Urine Color Yellow Urine Appearance Sl cloudy Urine pH 6.0 Ur Specific [place] 1.020 Urine Protein 30 H Urine Glucose (UA) >=1000 Urine Ketones 40 H Urine Blood Large H Urine Nitrate Negative Urine Bilirubin Negative Urine Urobilinogen 0.2 Ur Leukocyte Esterase Negative Urine RBC 1 - 3 Urine WBC 1 - 3 Ur Epithelial Cells 1 - 3 Urine Bacteria Rare Alcohol, Quantitative 05/10/18 05/10/18 05/10/18 05:35 05:35 07:23 WBC 35.7 H* D RBC 4.08 Hgb 12.4 L D Hct 35.1 L MCV 86.0 D MCH 30.4 MCHC 35.3 RDW 11.8 Plt Count 325 MPV 10.0 Gran % 83.5 H Lymph % (Auto) 7.5 L [place] % (Auto) 8.9 H Eos % (Auto) 0.0 L Baso % (Auto) 0.1 Gran # 29.82 H Lymph # (Auto) 2.7 [place] # (Auto) 3.2 H Eos # (Auto) 0.0 Baso # (Auto) 0.02 Neutrophils % (Manual) 83 H Band Neutrophils % 7 H Lymphocytes % (Manual) 4 L Monocytes % (Manual) 6 Differential Comment See pathology report Platelet Evaluation Normal pCO2 pO2 34 HCO3 ABG pH ABG Total CO2 ABG O2 Saturation ABG Base Excess ABG Potassium VBG pH 7.12 L* VBG pCO2 26.0 L VBG HCO3 8.5 L VBG Total CO2 9.3 L VBG O2 Sat (Calc) 76.4 H VBG Base Excess -19.4 L VBG Potassium 4.5 Sodium 133.0 Chloride 95.0 L Glucose 685 H* Lactate 4.6 H* FiO2 21.0 Potassium Carbon Dioxide Anion Gap BUN Creatinine Est GFR ( Amer) Est GFR (Non-Af Amer) POC Glucose (mg/dL) > 500 H* Random Glucose Calcium Phosphorus Magnesium Total Bilirubin AST ALT Alkaline Phosphatase Total Creatine Kinase Total Protein Albumin Globulin Albumin/Globulin Ratio Triglycerides Cholesterol LDL Cholesterol Direct HDL Cholesterol Lipase Arterial Blood Potassium Venous Blood Potassium 4.5 Urine Color Urine Appearance Urine pH Ur Specific [place] Urine Protein Urine Glucose (UA) Urine Ketones Urine Blood Urine Nitrate Urine Bilirubin Urine Urobilinogen Ur Leukocyte Esterase Urine RBC Urine WBC Ur Epithelial Cells Urine Bacteria Alcohol, Quantitative 05/10/18 05/10/18 05/10/18 07:55 07:55 08:04 WBC RBC Hgb Hct MCV MCH MCHC RDW Plt Count MPV Gran % Lymph % (Auto) [place] % (Auto) Eos % (Auto) Baso % (Auto) Gran # Lymph # (Auto) [place] # (Auto) Eos # (Auto) Baso # (Auto) Neutrophils % (Manual) Band Neutrophils % Lymphocytes % (Manual) Monocytes % (Manual) Differential Comment Platelet Evaluation pCO2 pO2 HCO3 ABG pH ABG Total CO2 ABG O2 Saturation ABG Base Excess ABG Potassium VBG pH VBG pCO2 VBG HCO3 VBG Total CO2 VBG O2 Sat (Calc) VBG Base Excess VBG Potassium Sodium 136 Chloride 101 Glucose Lactate FiO2 Potassium 3.9 Carbon Dioxide 12 L Anion Gap 27 H BUN 49 H Creatinine 3.0 H Est GFR ( Amer) 26 Est GFR (Non-Af Amer) 22 POC Glucose (mg/dL) > 500 H* Random Glucose 614 H* Calcium 8.0 L Phosphorus Magnesium Total Bilirubin AST ALT Alkaline Phosphatase Total Creatine Kinase Total Protein Albumin Globulin Albumin/Globulin Ratio Triglycerides 314 H Cholesterol 191 LDL Cholesterol Direct 57 HDL Cholesterol 46 Lipase 3165 H Arterial Blood Potassium Venous Blood Potassium Urine Color Urine Appearance Urine pH Ur Specific [place] Urine Protein Urine Glucose (UA) Urine Ketones Urine Blood Urine Nitrate Urine Bilirubin Urine Urobilinogen Ur Leukocyte Esterase Urine RBC Urine WBC Ur Epithelial Cells Urine Bacteria Alcohol, Quantitative < 10 05/10/18 05/10/18 05/10/18 08:30 08:44 08:57 WBC RBC Hgb Hct MCV MCH MCHC RDW Plt Count MPV Gran % Lymph % (Auto) [place] % (Auto) Eos % (Auto) Baso % (Auto) Gran # Lymph # (Auto) [place] # (Auto) Eos # (Auto) Baso # (Auto) Neutrophils % (Manual) Band Neutrophils % Lymphocytes % (Manual) Monocytes % (Manual) Differential Comment Platelet Evaluation pCO2 24 L pO2 117.0 H HCO3 12.4 L ABG pH 7.32 L ABG Total CO2 13.1 L ABG O2 Saturation 99.2 H ABG Base Excess -11.8 L ABG Potassium 3.6 VBG pH VBG pCO2 VBG HCO3 VBG Total CO2 VBG O2 Sat (Calc) VBG Base Excess VBG Potassium Sodium 135.0 Chloride 103.0 Glucose 613 H* Lactate 1.9 FiO2 28.0 Potassium Carbon Dioxide Anion Gap BUN Creatinine Est GFR ( Amer) Est GFR (Non-Af Amer) POC Glucose (mg/dL) > 500 H* Random Glucose Calcium Phosphorus Magnesium Total Bilirubin AST ALT Alkaline Phosphatase Total Creatine Kinase 495 H Total Protein Albumin Globulin Albumin/Globulin Ratio Triglycerides Cholesterol LDL Cholesterol Direct HDL Cholesterol Lipase Arterial Blood Potassium 3.6 Venous Blood Potassium Urine Color Urine Appearance Urine pH Ur Specific [place] Urine Protein Urine Glucose (UA) Urine Ketones Urine Blood Urine Nitrate Urine Bilirubin Urine Urobilinogen Ur Leukocyte Esterase Urine RBC Urine WBC Ur Epithelial Cells Urine Bacteria Alcohol, Quantitative Assessment & Plan - Assessment and Plan (Free Text) Plan: Assessment systemic inflammatory response syndrome, consider severe sepsis with acute encephalopathy and acute renal failure due to intra-abdominal infection as well as acute pancreatitis, presenting with diabetic ketoacidosis insulin dependent DM HTN bicuspid aortic valve history of rhabdomyolysis dyslipidemia Plan Started a dose of IV Vancomycin and started Merrem pending blood, urine cx; follow up CT scan of the chest, abdomen and pelvis ICU and Endocrine to manage DKA for pancreatitis, may need further imaging of the biliary tree to rule out stones will monitor clinically will check HIV test due to his age
[2018-05-10] MEDS ORDERED: Magnesium 2 gm/50 ml NS 2 GM/50 ML BAG IVPB ONE (14:42)
[2018-05-10] MEDS ORDERED: Potassium Chloride 40 mEq/30 ml LIQ UD PO STA (14:42)
--- NOTE | 2018-05-10 14:42 | CON ---
Copied To: Laurel Fenton MD Attending MD: Laurel Fenton MD DATE: 05/10/2018 ENDOCRINOLOGY CONSULTATION LOCATION: In CCU 129, room 4. HISTORY OF PRESENT ILLNESS: This is a 58-year-old male with known history of type 1 insulin-dependent diabetes using an insulin pump and presenting here with altered mental status with precedent bouts of intractable nausea, vomiting and diarrhea with diffuse abdominal pain and has been evaluated to be in acute pancreatitis with concomitant diabetic ketoacidosis and dehydration and is now being referred for diabetic evaluation and management. PAST MEDICAL HISTORY: History of type 1 insulin-dependent diabetes on a combination of Humalog given as 6 units t.i.d. before meals and Levemir given as 16 units subcu at bedtime daily and this was actually his insulin regimen prior to the use of the insulin pump. At this time, we are unable to get details as to the current basal and bolus insulin doses of his insulin pump because of the patient's current mental state, history of hypertension and dyslipidemia. He also had apparent history of a bicuspid aortic valve and currently being followed closely by Cardiology. He also had previous episode of pancreatitis with rhabdomyolysis in the past as noted and at that time was sent to [facility] [place] for rehabilitation. FAMILY HISTORY: Positive for diabetes and hypertension. SOCIAL HISTORY: The patient has a supportive family. He lives alone with no known substance use. REVIEW OF SYSTEMS: Not possible at this time. The chart has been reviewed in detail and the medical nurse's notes and discussion have also been reviewed in detail. PHYSICAL EXAMINATION: GENERAL: This is an average built male in no apparent distress. VITAL SIGNS: Blood pressure of 150/90, pulse of 100 beats per minute regular, temperature 98, respirations 20, height is 5 feet 8 inches, weight is 185 pounds. HEENT: Head: Normocephalic. Eyes: Anicteric with pink conjunctivae. Funduscopy not possible at this time. Ears, nose and throat: Otherwise normal. NECK: Supple. Thyroid gland is normal in size. No carotid bruits or cervical adenopathy. CARDIOPULMONARY: Some adynamic precordium. S1, S2 is rapid and regular. LUNGS: Clear to auscultation. ABDOMEN: Flat, soft with positive bowel sounds. EXTREMITIES: No peripheral edema. Pulses are +2 bilaterally. LABORATORY DATA: His WBC initially is 45.1, hemoglobin of 14, hematocrit of 45, MCV 95 and platelets 553. His chemistries on admission showed a BUN of 44, sodium 130, potassium 8, chloride 87, CO2 is less than 5, glucose is 1173 mg/dL, creatinine is 3.9. His lipase level is 4784. His subsequent glucose values have been over 500 mg/dL. His creatine kinase is 495. ASSESSMENT: This is a 58-year-old male with uncontrolled and decompensated type 1 insulin-dependent diabetes presenting here with acute pancreatitis and supervening diabetic ketoacidosis and dehydration with spurious hyponatremia and hyperkalemia as noted thereof. PLAN OF MANAGEMENT: We will concur with vigorous IV hydration started and given and we will obtain serial chemistries and supplement accordingly as needed. We will also continue the insulin drip infusion as ordered and we will follow very closely his electrolytes and at least hope for the anion gap to close and at least a CO2 to be above 20 mg/dL before we can switch him over to a more physiologic basal and bolus insulin drug combination as indicated. We will shut off his insulin pump and this has been already done as noted. We will continue the vigorous IV hydration with normal saline running at 200 mL/hour as ordered. We will obtain serial chemistries and supplement accordingly as needed. We will follow. Laurel Fneton MD : 05/10/2018 13:18:24
[2018-05-10 16:15] LABS: CALCIUM 8.1 mg/dL (8.4-10.5)
--- NOTE | 2018-05-10 16:24 | CP.PCM.CON ---
History of Present Illness - History of Present Illness History of Present Illness: Nephrology Consultation Note: Assessment: critical Acute Kidney Injury (N17.9) likely due to severe DKA/hypotension/dehydration HAGMA with lactic acidosis acute pancreatitis Hypokalemia, hypernatremia, hypocalcemia possible sepsis hx of DM, HTN, dyslipidemia, rhabdomyolysis elevated troponins Plan No acute need for renal replacement therapy at this time. serum cr trending down Maintain hemodynamics stable. Avoid hypotension. Patient not on ACEI/ARB due to recent MARCELLE Monitor Input/Output, daily weights and renal function with basic metabolic panel on insulin drip and NPO. consider 0.45% saline fluid now since BP better and can develop hypernatremia otherwise supplement lytes as needed can check urine analysis, spot protein/creatinine, albumin/creatinine ratio Dose meds/antibiotics for reduced GFR. Avoid fleets enema/magnesium based laxatives. Avoid nephrotoxins/NSAIDs/ iodinated contrast (unless needed emergently) Glycemic control Further work up/management as per primary team Thanks for allowing me to participate in care of your patient. Will follow patient with you. Please call if any Qs. had d/w team Dr Wilian Multani Office: [phone] Chief Complaint; high sugar Reason for consult: Acute Kidney Injury HPI: Pt is a 58 M with hx of diabetes Mellitus ( years), hypertension (years), DKA in past, hyperlipidemia/rhabdomyolysis, presented with complaints of nausea/ vomitting and loose stool for 2 days and found to have severe DKa with MARCELLE. hence renal consult for MARCELLE management. pt feels sick, denies CP/SOB. no nausea/ vomiting now. had loose stool Denies OTC/herbal meds or NSAIDs No recent iodinated contrast exposure. Noted obvious episodes of low BP. ROS: Cardiovascular: No chest pain. Pulmonary: No shortness of breath Gastrointestinal: c/o abdominal pain No nausea. No vomiting. Genitourinary: No pain while urinating. Denies blood in urine. All other negative except as mentioned in HPI Physical Examination: General Appearance: Comfortable, in no acute respiratory distress, co-operative . ill appearing Vitals reviewed and noted as below Head; Atraumatic, normocephalic ENT: no ulcers no thrush. Tongue is midline. Oropharynx: no rash or ulcers. EYES: Pupils are equal, round and reactive to light accommodation. Eye muscles and extraocular movement intact. Sclera is anicteric. Neck; supple no lymphadenopathy, no thyromegaly or bruit Lungs: Normal respiratory rate/effort. Breath sounds bilateral equal and clear Heart: Normal rate. s1s2 normal. No rub or gallop. Extremities: no edema. No varicose veins Neurological: Patient is awake but bit sleepy and oriented to person, place and time. No focal deficit. Strength bilateral appropriate and equal Skin: Warm and dry. Normal turgor. No rash. Palpitation: Normal elasticity for age Abdomen: Abdomen is soft. Bowel sounds +. There is no abdominal tenderness, no guarding/rigidity no organomegaly Psych: limited insight and flat affect/mood MSK: no joint tenderness or swelling. Digits and nails normal, no deformity : kidney or bladder not palpable Labs/imaging reviewed. Past medical history, past surgical history, family history, social history, allergy reviewed and noted as below Family hx: no hx of CKD. Rest non-contributory imaging for kidney: unremarkable Past Patient History - Infectious Disease Hx of Infectious Diseases: None - Past Social History Smoking Status: Unknown If Ever Smoked - CARDIAC Hx Cardiac Disorders: Yes (AV problems) Hx Hypertension: Yes - PULMONARY Hx Respiratory Disorders: No - NEUROLOGICAL Other/Comment: unresponsive - HEENT Hx HEENT Problems: No - RENAL Hx Chronic Kidney Disease: No - ENDOCRINE/METABOLIC Hx Diabetes Mellitus Type 1: Yes - HEMATOLOGICAL/ONCOLOGICAL Hx Blood Disorders: No - INTEGUMENTARY Hx Dermatological Problems: No - MUSCULOSKELETAL/RHEUMATOLOGICAL Hx Musculoskeletal Disorders: No Hx Falls: Yes - GASTROINTESTINAL Hx Gastrointestinal Disorders: No - GENITOURINARY/GYNECOLOGICAL Hx Genitourinary Disorders: No - PSYCHIATRIC Hx Psychophysiologic Disorder: No Hx Substance Use: No (denied by family) - SURGICAL HISTORY Other/Comment: Unknown by family. - ANESTHESIA Hx Anesthesia: No Meds Allergies/Adverse Reactions: Allergies Allergy/AdvReac Type Severity Reaction Status Date / Time No Known Allergies Allergy Verified 06/30/12 17:03 - Medications Medications: Current Medications Dextrose (Dextrose 50% Inj) 0 ml IV STAT PRN; Protocol PRN Reason: Hypoglycemia Protocol Heparin Sodium (Porcine) (Heparin) 5,000 units SC BID LINWOOD PRN Reason: Protocol Last Admin: 05/10/18 09:02 Dose: 5,000 units Dextrose (Dextrose 5% In Water 1000 Ml) 1,000 mls @ 0 mls/hr IV .Q0M PRN; Protocol; Per Protocol PRN Reason: Hypoglycemia Protocol Insulin Human Regular 100 (units/ Sodium Chloride) 100 mls @ 16 mls/hr IV .Q6H15M PRN; Protocol; 16 UNITS/HR PRN Reason: TITRATE PER MD ORDER Last Admin: 05/10/18 13:21 Dose: 16 units/hr, 16 mls/hr Meropenem 500 mg/ Sodium (Chloride) 50 mls @ 100 mls/hr IVPB Q12 LINWOOD PRN Reason: Protocol Stop: 05/17/18 10:16 Last Admin: 05/10/18 11:43 Dose: 100 mls/hr Potassium Chloride (Potassium Chloride 10 Meq/100 Ml) 10 meq in 100 mls @ 50 mls/hr IVPB Q2H [facility] Stop: 05/10/18 16:44 Last Admin: 05/10/18 13:58 Dose: 50 mls/hr Potassium Chloride (Potassium Chloride 10 Meq/100 Ml) 10 meq in 100 mls @ 50 mls/hr IVPB Q2H [facility] Stop: 05/10/18 18:44 Last Admin: 05/10/18 16:06 Dose: 50 mls/hr Sodium Chloride (Sodium Chloride 0.45%) 1,000 mls @ 75 mls/hr IV .[id number] [facility] Pantoprazole Sodium (Protonix Inj) 40 mg IVP 0700 LINWOOD Last Admin: 05/10/18 09:03 Dose: 40 mg Results - Vital Signs Recent Vital Signs: Last Vital Signs Temp 99.1 F 05/10/18 05:18 Pulse 98 H 05/10/18 08:10 Resp 23 05/10/18 08:10 BP 107/57 L 05/10/18 08:00 Pulse Ox 100 05/10/18 08:10 - Labs Result Diagrams: 05/10/18 05:35 05/10/18 15:58 Labs: Laboratory Results - last 24 hr 05/10/18 05/10/18 05/10/18 04:50 05:19 05:35 WBC RBC Hgb Hct MCV MCH MCHC RDW Plt Count MPV Gran % Lymph % (Auto) [place] % (Auto) Eos % (Auto) Baso % (Auto) Gran # Lymph # (Auto) [place] # (Auto) Eos # (Auto) Baso # (Auto) Neutrophils % (Manual) Band Neutrophils % Lymphocytes % (Manual) Monocytes % (Manual) Differential Comment Platelet Evaluation pCO2 pO2 HCO3 ABG pH ABG Total CO2 ABG O2 Saturation ABG Base Excess ABG Potassium VBG pH VBG pCO2 VBG HCO3 VBG Total CO2 VBG O2 Sat (Calc) VBG Base Excess VBG Potassium Sodium 134 Chloride 98 Glucose Lactate FiO2 Potassium 4.7 Carbon Dioxide 7 L D Anion Gap 34 H BUN 48 H Creatinine 3.3 H Est GFR ( Amer) 24 Est GFR (Non-Af Amer) 19 POC Glucose (mg/dL) > 500 H* Random Glucose 742 H* D Hemoglobin A1c Calcium 7.4 L Phosphorus 4.1 Magnesium 2.2 Total Bilirubin 0.7 AST 36 ALT 23 Alkaline Phosphatase 71 Total Creatine Kinase CK-MB (CK-2) CK-MB (CK-2) % Troponin I Total Protein 5.7 L Albumin 3.6 Globulin 2.2 Albumin/Globulin Ratio 1.6 Triglycerides Cholesterol LDL Cholesterol Direct HDL Cholesterol Lipase Arterial Blood Potassium Venous Blood Potassium Urine Color Yellow Urine Appearance Sl cloudy Urine pH 6.0 Ur Specific [place] 1.020 Urine Protein 30 H Urine Glucose (UA) >=1000 Urine Ketones 40 H Urine Blood Large H Urine Nitrate Negative Urine Bilirubin Negative Urine Urobilinogen 0.2 Ur Leukocyte Esterase Negative Urine RBC 1 - 3 Urine WBC 1 - 3 Ur Epithelial Cells 1 - 3 Urine Bacteria Rare Alcohol, Quantitative 05/10/18 05/10/18 05/10/18 05:35 05:35 07:00 WBC 35.7 H* D RBC 4.08 Hgb 12.4 L D Hct 35.1 L MCV 86.0 D MCH 30.4 MCHC 35.3 RDW 11.8 Plt Count 325 MPV 10.0 Gran % 83.5 H Lymph % (Auto) 7.5 L [place]ff[place] % (Auto) 8.9 H Eos % (Auto) 0.0 L Baso % (Auto) 0.1 Gran # 29.82 H Lymph # (Auto) 2.7 [place]duffie # (Auto) 3.2 H Eos # (Auto) 0.0 Baso # (Auto) 0.02 Neutrophils % (Manual) 83 H Band Neutrophils % 7 H Lymphocytes % (Manual) 4 L Monocytes % (Manual) 6 Differential Comment See pathology report Platelet Evaluation Normal pCO2 pO2 34 HCO3 ABG pH ABG Total CO2 ABG O2 Saturation ABG Base Excess ABG Potassium VBG pH 7.12 L* VBG pCO2 26.0 L VBG HCO3 8.5 L VBG Total CO2 9.3 L VBG O2 Sat (Calc) 76.4 H VBG Base Excess -19.4 L VBG Potassium 4.5 Sodium 133.0 Chloride 95.0 L Glucose 685 H* Lactate 4.6 H* FiO2 21.0 Potassium Carbon Dioxide Anion Gap BUN Creatinine Est GFR ( Amer) Est GFR (Non-Af Amer) POC Glucose (mg/dL) Random Glucose Hemoglobin A1c 7.7 H Calcium Phosphorus Magnesium Total Bilirubin AST ALT Alkaline Phosphatase Total Creatine Kinase CK-MB (CK-2) CK-MB (CK-2) % Troponin I Total Protein Albumin Globulin Albumin/Globulin Ratio Triglycerides Cholesterol LDL Cholesterol Direct HDL Cholesterol Lipase Arterial Blood Potassium Venous Blood Potassium 4.5 Urine Color Urine Appearance Urine pH Ur Specific [place] Urine Protein Urine Glucose (UA) Urine Ketones Urine Blood Urine Nitrate Urine Bilirubin Urine Urobilinogen Ur Leukocyte Esterase Urine RBC Urine WBC Ur Epithelial Cells Urine Bacteria Alcohol, Quantitative 05/10/18 05/10/18 05/10/18 07:23 07:55 07:55 WBC RBC Hgb Hct MCV MCH MCHC RDW Plt Count MPV Gran % Lymph % (Auto) [place] % (Auto) Eos % (Auto) Baso % (Auto) Gran # Lymph # (Auto) [place] # (Auto) Eos # (Auto) Baso # (Auto) Neutrophils % (Manual) Band Neutrophils % Lymphocytes % (Manual) Monocytes % (Manual) Differential Comment Platelet Evaluation pCO2 pO2 HCO3 ABG pH ABG Total CO2 ABG O2 Saturation ABG Base Excess ABG Potassium VBG pH VBG pCO2 VBG HCO3 VBG Total CO2 VBG O2 Sat (Calc) VBG Base Excess VBG Potassium Sodium 136 Chloride 101 Glucose Lactate FiO2 Potassium 3.9 Carbon Dioxide 12 L Anion Gap 27 H BUN 49 H Creatinine 3.0 H Est GFR ( Amer) 26 Est GFR (Non-Af Amer) 22 POC Glucose (mg/dL) > 500 H* Random Glucose 614 H* Hemoglobin A1c Calcium 8.0 L Phosphorus Magnesium Total Bilirubin AST ALT Alkaline Phosphatase Total Creatine Kinase CK-MB (CK-2) CK-MB (CK-2) % Troponin I Total Protein Albumin Globulin Albumin/Globulin Ratio Triglycerides 314 H Cholesterol 191 LDL Cholesterol Direct 57 HDL Cholesterol 46 Lipase 3165 H Arterial Blood Potassium Venous Blood Potassium Urine Color Urine Appearance Urine pH Ur Specific [place] Urine Protein Urine Glucose (UA) Urine Ketones Urine Blood Urine Nitrate Urine Bilirubin Urine Urobilinogen Ur Leukocyte Esterase Urine RBC Urine WBC Ur Epithelial Cells Urine Bacteria Alcohol, Quantitative < 10 05/10/18 05/10/18 05/10/18 08:04 08:30 08:44 WBC RBC Hgb Hct MCV MCH MCHC RDW Plt Count MPV Gran % Lymph % (Auto) [place] % (Auto) Eos % (Auto) Baso % (Auto) Gran # Lymph # (Auto) [place] # (Auto) Eos # (Auto) Baso # (Auto) Neutrophils % (Manual) Band Neutrophils % Lymphocytes % (Manual) Monocytes % (Manual) Differential Comment Platelet Evaluation pCO2 24 L pO2 117.0 H HCO3 12.4 L ABG pH 7.32 L ABG Total CO2 13.1 L ABG O2 Saturation 99.2 H ABG Base Excess -11.8 L ABG Potassium 3.6 VBG pH VBG pCO2 VBG HCO3 VBG Total CO2 VBG O2 Sat (Calc) VBG Base Excess VBG Potassium Sodium 135.0 Chloride 103.0 Glucose 613 H* Lactate 1.9 FiO2 28.0 Potassium Carbon Dioxide Anion Gap BUN Creatinine Est GFR ( Amer) Est GFR (Non-Af Amer) POC Glucose (mg/dL) > 500 H* Random Glucose Hemoglobin A1c Calcium Phosphorus Magnesium Total Bilirubin AST ALT Alkaline Phosphatase Total Creatine Kinase 495 H CK-MB (CK-2) 16.7 H CK-MB (CK-2) % 3.4 H Troponin I 1.03 H* D Total Protein Albumin Globulin Albumin/Globulin Ratio Triglycerides Cholesterol LDL Cholesterol Direct HDL Cholesterol Lipase Arterial Blood Potassium 3.6 Venous Blood Potassium Urine Color Urine Appearance Urine pH Ur Specific [place] Urine Protein Urine Glucose (UA) Urine Ketones Urine Blood Urine Nitrate Urine Bilirubin Urine Urobilinogen Ur Leukocyte Esterase Urine RBC Urine WBC Ur Epithelial Cells Urine Bacteria Alcohol, Quantitative 05/10/18 05/10/18 05/10/18 08:57 10:04 11:01 WBC RBC Hgb Hct MCV MCH MCHC RDW Plt Count MPV Gran % Lymph % (Auto) [place] % (Auto) Eos % (Auto) Baso % (Auto) Gran # Lymph # (Auto) [place] # (Auto) Eos # (Auto) Baso # (Auto) Neutrophils % (Manual) Band Neutrophils % Lymphocytes % (Manual) Monocytes % (Manual) Differential Comment Platelet Evaluation pCO2 pO2 HCO3 ABG pH ABG Total CO2 ABG O2 Saturation ABG Base Excess ABG Potassium VBG pH VBG pCO2 VBG HCO3 VBG Total CO2 VBG O2 Sat (Calc) VBG Base Excess VBG Potassium Sodium Chloride Glucose Lactate FiO2 Potassium Carbon Dioxide Anion Gap BUN Creatinine Est GFR ( Amer) Est GFR (Non-Af Amer) POC Glucose (mg/dL) > 500 H* > 500 H* 488 H* Random Glucose Hemoglobin A1c Calcium Phosphorus Magnesium Total Bilirubin AST ALT Alkaline Phosphatase Total Creatine Kinase CK-MB (CK-2) CK-MB (CK-2) % Troponin I Total Protein Albumin Globulin Albumin/Globulin Ratio Triglycerides Cholesterol LDL Cholesterol Direct HDL Cholesterol Lipase Arterial Blood Potassium Venous Blood Potassium Urine Color Urine Appearance Urine pH Ur Specific [place] Urine Protein Urine Glucose (UA) Urine Ketones Urine Blood Urine Nitrate Urine Bilirubin Urine Urobilinogen Ur Leukocyte Esterase Urine RBC Urine WBC Ur Epithelial Cells Urine Bacteria Alcohol, Quantitative 05/10/18 05/10/18 05/10/18 11:45 11:59 12:56 WBC RBC Hgb Hct MCV MCH MCHC RDW Plt Count MPV Gran % Lymph % (Auto) [place] % (Auto) Eos % (Auto) Baso % (Auto) Gran # Lymph # (Auto) [place] # (Auto) Eos # (Auto) Baso # (Auto) Neutrophils % (Manual) Band Neutrophils % Lymphocytes % (Manual) Monocytes % (Manual) Differential Comment Platelet Evaluation pCO2 pO2 HCO3 ABG pH ABG Total CO2 ABG O2 Saturation ABG Base Excess ABG Potassium VBG pH VBG pCO2 VBG HCO3 VBG Total CO2 VBG O2 Sat (Calc) VBG Base Excess VBG Potassium Sodium 145 Chloride 114 H Glucose Lactate FiO2 Potassium 2.8 L* D Carbon Dioxide 16 L Anion Gap 18 BUN 39 H Creatinine 1.9 H Est GFR ( Amer) 45 Est GFR (Non-Af Amer) 37 POC Glucose (mg/dL) 418 H* 392 H Random Glucose 319 H* D Hemoglobin A1c Calcium 6.5 L* Phosphorus Magnesium Total Bilirubin AST ALT Alkaline Phosphatase Total Creatine Kinase CK-MB (CK-2) CK-MB (CK-2) % Troponin I Total Protein Albumin Globulin Albumin/Globulin Ratio Triglycerides Cholesterol LDL Cholesterol Direct HDL Cholesterol Lipase Arterial Blood Potassium Venous Blood Potassium Urine Color Urine Appearance Urine pH Ur Specific [place] Urine Protein Urine Glucose (UA) Urine Ketones Urine Blood Urine Nitrate Urine Bilirubin Urine Urobilinogen Ur Leukocyte Esterase Urine RBC Urine WBC Ur Epithelial Cells Urine Bacteria Alcohol, Quantitative 05/10/18 05/10/18 13:57 15:58 WBC RBC Hgb Hct MCV MCH MCHC RDW Plt Count MPV Gran % Lymph % (Auto) [place] % (Auto) Eos % (Auto) Baso % (Auto) Gran # Lymph # (Auto) [place] # (Auto) Eos # (Auto) Baso # (Auto) Neutrophils % (Manual) Band Neutrophils % Lymphocytes % (Manual) Monocytes % (Manual) Differential Comment Platelet Evaluation pCO2 pO2 HCO3 ABG pH ABG Total CO2 ABG O2 Saturation ABG Base Excess ABG Potassium VBG pH VBG pCO2 VBG HCO3 VBG Total CO2 VBG O2 Sat (Calc) VBG Base Excess VBG Potassium Sodium 144 Chloride 113 H Glucose Lactate FiO2 Potassium 3.4 L Carbon Dioxide 24 Anion Gap 11 BUN 41 H Creatinine 1.8 H Est GFR ( Amer) 47 Est GFR (Non-Af Amer) 39 POC Glucose (mg/dL) 315 H Random Glucose 167 H Hemoglobin A1c Calcium 8.1 L Phosphorus Magnesium Total Bilirubin AST ALT Alkaline Phosphatase Total Creatine Kinase CK-MB (CK-2) CK-MB (CK-2) % Troponin I Total Protein Albumin Globulin Albumin/Globulin Ratio Triglycerides Cholesterol LDL Cholesterol Direct HDL Cholesterol Lipase Arterial Blood Potassium Venous Blood Potassium Urine Color Urine Appearance Urine pH Ur Specific [place] Urine Protein Urine Glucose (UA) Urine Ketones Urine Blood Urine Nitrate Urine Bilirubin Urine Urobilinogen Ur Leukocyte Esterase Urine RBC Urine WBC Ur Epithelial Cells Urine Bacteria Alcohol, Quantitative
[2018-05-10 16:37] LABS: TROPONIN I 3.85 ng/mL
--- NOTE | 2018-05-10 18:21 | CARD ---
APPROVED REPORT Date of service: 05/10/2018 EXAM: Two-dimensional and M-mode echocardiogram with Doppler and color Doppler. INDICATION ELEVATED TROPONIN 2D DIMENSIONS Left Atrium (2D)3.8 (1.6-4.0cm)IVSd1.4 (0.7-1.1cm) LVDd3.8 (3.9-5.9cm)PWd1.4 (0.7-1.1cm) LVDs2.5 (2.5-4.0cm)FS (%) 33.6 % LVEF (%)63.1 (>50%) M-Mode DIMENSIONS Aortic Root2.70 (2.2-3.7cm) Aortic Valve AoV Peak Mgwbzgfu086.0cm/sAoV VTI62.1cmAO Peak GR.52mmHg LVOT Peak Ckoajplz403.0cm/sLVOT VTI24.80cmAO Mean GR.31mmHg Mitral Valve MV E Cxooiehz36.9cm/sMV A Kzpzfpvf92.7cm/sE/A ratio0.9 TDI Lateral E' Peak V8.68cm/sMedial E' Peak V8.29cm/sE/Lateral E'10.1 E/Medial E'10.6 Pulmonary Valve PV Peak Kxityqrb39.3cm/sPV Peak Grad.3mmHg Tricuspid Valve TR Peak Sgiteqgk965um/sRAP GOMKNOWE61xpPcBY Peak Gr.25mmHg [id number] LEFT VENTRICLE The left ventricle is normal size. There is mild concentric left ventricular hypertrophy. The left ventricular function is normal.EF-60-65% There is normal LV segmental wall motion. Transmitral Doppler flow pattern is Grade III-reversible restrictive diastolic dysfunction. No left ventricle thrombus noted on this study. There is no ventricular septal defect visualized. There is no left ventricular aneurysm. There is no mass noted in the left ventricle. RIGHT VENTRICLE The right ventricle is normal size. There is normal right ventricular wall thickness. The right ventricular systolic function is normal. ATRIA The left atrium size is normal. The right atrium size is normal. The interatrial septum is intact with no evidence for an atrial septal defect. AORTIC VALVE The aortic valve is not well visualized., may consider KELLY. The aortic valve is calcified and displays decreased opening. Possible bicuspid aortic Valve.. There is trace aortic regurgitation. Mild to moderate MITRAL VALVE The mitral valve is thickened but opens well. Mitral annular calcification is mild to moderate. Mitral regurgitation is trace. There is no mitral valve stenosis. There is no evidence of mitral valve prolapse. TRICUSPID VALVE The tricuspid valve leaflets are thickened , but open well. There is trace to mild tricuspid regurgitation.RVSP-35 mmof Hg. There is no tricuspid valve stenosis. There is no tricuspid valve prolapse or vegetation. PULMONIC VALVE The pulmonic valve is not well visualized. GREAT VESSELS The aortic root is normal in size. The ascending aorta is normal in size. The pulmonary artery is normal. The IVC is normal in size and collapses >50% with inspiration. PERICARDIAL EFFUSION There is no pleural effusion. There is no pericardial effusion. <Conclusion> Normal chamber Size, LVH, EF-60-65%. The aortic valve is not well visualized., may consider KELLY. The aortic valve is calcified and displays decreased opening. Possible bicuspid aortic Valve.. There is trace aortic regurgitation. Mild to moderate Mitral regurgitation is trace. There is trace to mild tricuspid regurgitation.RVSP-35 mmof Hg. The IVC is normal in size and collapses >50% with inspiration. There is no pericardial effusion.
[2018-05-10] MEDS ORDERED: Insulin Reg-LOW-Coverage SC SCH (18:45)
[2018-05-10] MEDS ORDERED: Insulin Lispro (humaLOG) LOW Coverage SC SCH (22:00)
[2018-05-10] MEDS ORDERED: Insulin Detemir 100 units/ml Vial (Levemir) SC SCH (22:00)
[2018-05-10 22:39] LABS: CALCIUM 8.1 mg/dL (8.4-10.5)
[2018-05-10 22:49] LABS: TROPONIN I 3.25 ng/mL
[2018-05-10] MEDS: Heparin25000 units/250ml 1/2NS 25,000 UNITS/250 ML BAG IV SCH (23:10)
[2018-05-11 06:23] LABS: GRAN # 20.22 (1.4-6.5); GRAN % 89.6 % (50.0-68.0); HEMOGLOBIN 11.9 g/dL (14.0-18.0); LYMPH # 1.3 (1.2-3.4); LYMPH % 5.9 % (22.0-35.0); MEAN CELL VOLUME 82.8 fl (80.0-105.0); MEAN CORPUSCULAR HEMOGLOBIN 29.6 pg (25.0-35.0); MEAN CORPUSCULAR HGB CONC 35.7 g/dl (31.0-37.0); MEAN PLATELET VOLUME 9.7 fl (7.0-11.0); MONO % 4.5 % (1.0-6.0); RBC 4.02 10^6/uL (3.5-6.1); RED CELL DISTRIBUTION WIDTH 12.7 % (11.5-14.5); WHITE BLOOD COUNT 22.6 10^3/ul (4.5-11.0)
[2018-05-11 06:26] LABS: ALB/GLOB RATIO 1.3 (1.1-1.8); ALT/SGPT 53 U/L (7-56); AST/SGOT 61 U/L (17-59); BLOOD UREA NITROGEN 30 mg/dL (7-21); CALCIUM 8.1 mg/dL (8.4-10.5); GFR NON-AFRICAN AMERICAN 57; HDL CHOLESTEROL 45 mg/dL (29-60); LIPASE 448 U/L (23-300)
[2018-05-11 06:35] LABS: LDL CHOLESTEROL 57 mg/dL (0-129)
[2018-05-11] MEDS ORDERED: Insulin Lispro 1 UNITS/0.01 ML SC SCH (07:30)
[2018-05-11] MEDS ORDERED: Insulin Lispro (humaLOG) LOW Coverage SC SCH (07:30)
[2018-05-11] MEDS: Insulin Lispro (humaLOG) LOW Coverage SC SCH ×4 (09:54→21:26)
--- NOTE | 2018-05-11 09:54 | PN ---
Copied To: Jani Vega MD Attending MD: Jani Vega MD DATE: 05/11/2018 SUBJECTIVE: The patient is in bed, in no acute distress, nontoxic. OBJECTIVE: VITAL SIGNS: On exam, temperature is 99, blood pressure is 150/90, respiratory rate of 22, heart rate of 97. HEENT: Examination is unremarkable. NECK: Supple. LUNGS: Have decreased breath sounds. HEART: Normal S1, S2. ABDOMEN: Soft, nontender. DATA: Laboratory examination reveals a white count of 22,000, hemoglobin of 11 and platelets of 262. Chemistries reveals a BUN of 30, creatinine of 1.3 and lipase is 448. Urinalysis is noted. Serology is negative. Microbiology reveals the blood cultures are negative. Review of orders reveals the patient to be on meropenem, was given a dose of vancomycin. ASSESSMENT AND PLAN: This is a 58-year-old male who was seen earlier today in [facility], bed 4 who was admitted with SIRS, systemic inflammatory response syndrome with acute encephalopathy, acute renal failure with elevated troponins, acute pancreatitis, [id number] myocardial infarction, diabetic ketoacidosis in an insulin dependent diabetic with hypertension and bicuspid aortic valve, history of rhabdomyolysis, on meropenem. As far as the patient's troponin is elevated . However, the patient's EKG read by Dr. Harris shows a QTc of 503, sinus tachycardia; otherwise, a normal EKG. Another EKG was done same day; atrial fibrillation; rapid ventricular response, right great axis; intraventricular conduction block and with a chest x-ray with no active lung disease in the CAT scan of the abdomen and pelvis and chest. No acute findings. Clear lungs on the CAT scan of the chest and no findings in the abdomen. Dr. Multani's consultation is reviewed. We will continue to follow final cultures and white count and we will make further recommendations. Jani Vega MD
[2018-05-11] MEDS: Meropenem 500 MG in Sodium Chloride 0.9% 50 ML IVPB SCH ×2 (09:57→21:27)
--- NOTE | 2018-05-11 10:29 | CARD ---
APPROVED REPORT Date of service: 05/11/2018 EKG Measurement Heart [id number] <Conclusion> Normal sinus rhythm Normal ECG
[2018-05-11] MEDS: Insulin Lispro 1 UNITS/0.01 ML SC SCH ×2 (12:40→17:21)
--- NOTE | 2018-05-11 13:08 | PN ---
Copied To: Laurel Fenton MD Attending MD: Laurel Fenton MD DATE: 05/11/2018 ENDOCRINOLOGY FOLLOWUP NOTE LOCATION: CCU 129, room 4. SUBJECTIVE: This is a 58-year-old male with recent uncontrolled type 1 insulin-dependent diabetes, presenting here with diabetic ketoacidosis and dehydration and is now being followed closely for metabolic management. His glycemic levels are fluctuating but much improved overnight and his electrolytes have improved remarkably, especially with near resolution of his metabolic acidosis with vigorous IV hydration as given overnight. His latest glucose values have ranged from 111 to 212 mg/dL. His chemistries today showed a BUN of 30, sodium 146, potassium 4.3, chloride 115, CO2 is 20, glucose is 230, and creatinine is 1.3. So, at this time, we will continue at a lower infusion rate his normal saline with KCl infusion as given. We will also modify his basal and bolus insulin regimen and increase the Humalog to 10 units subcu t.i.d. before meals to start today as ordered. We will continue the low-dose correction scale using Humalog insulin as given. We will obtain serial chemistries and supplement accordingly as needed. We will also modify his basal insulin and increase the Levemir to 24 units subcu at bedtime daily as given. We will titrate incrementally as indicated to optimize metabolic control. We will obtain serial chemistries and supplement accordingly as needed. We will follow. Laurel Fenton MD
--- NOTE | 2018-05-11 13:34 | CP.PCM.PN ---
Subjective - Date & Time of Evaluation Date of Evaluation: 05/11/18 Time of Evaluation: 13:33 - Subjective Subjective: Nephrology Consultation Note: Assessment: critical Acute Kidney Injury (N17.9) likely due to severe DKA/hypotension/dehydration HAGMA with lactic acidosis acute pancreatitis Hypokalemia, hypernatremia, hypocalcemia possible sepsis hx of DM, HTN, dyslipidemia, rhabdomyolysis elevated troponins Plan No acute need for renal replacement therapy at this time. Cr improved Maintain hemodynamics stable. Avoid hypotension. Patient not on ACEI/ARB due to recent MARCELLE Na stable acidosis improved can check urine analysis, spot protein/creatinine, albumin/creatinine ratio S: wants to eat and wants to leave the hospital Physical Examination: General Appearance: Comfortable, in no acute respiratory distress, co-operative . ill appearing Vitals reviewed and noted as below Head; Atraumatic, normocephalic ENT: no ulcers no thrush. Tongue is midline. Oropharynx: no rash or ulcers. EYES: Pupils are equal, round and reactive to light accommodation. Eye muscles and extraocular movement intact. Sclera is anicteric. Neck; supple no lymphadenopathy, no thyromegaly or bruit Lungs: Normal respiratory rate/effort. Breath sounds bilateral equal and clear Heart: Normal rate. s1s2 normal. No rub or gallop. Extremities: no edema. No varicose veins Neurological: Patient is awake but bit sleepy and oriented to person, place and time. No focal deficit. Strength bilateral appropriate and equal Skin: Warm and dry. Normal turgor. No rash. Palpitation: Normal elasticity for age Abdomen: Abdomen is soft. Bowel sounds +. There is no abdominal tenderness, no guarding/rigidity no organomegaly Psych: limited insight and flat affect/mood MSK: no joint tenderness or swelling. Digits and nails normal, no deformity : kidney or bladder not palpable Labs/imaging reviewed. Past medical history, past surgical history, family history, social history, allergy reviewed and noted as below Family hx: no hx of CKD. Rest non-contributory Objective - Vital Signs/Intake and Output Vital Signs (last 24 hours): Temp Pulse Resp BP Pulse Ox 99.1 F 87 21 147/90 99 05/10/18 05:18 05/11/18 10:02 05/11/18 07:30 05/11/18 10:02 05/11/18 07:30 Intake and Output: 08/18/18 08/18/18 06:59 18:59 Intake Total 50 Output Total 1000 Balance -950 - Medications Medications: Current Medications Aspirin (Ecotrin) 81 mg PO DAILY [facility] Last Admin: 05/11/18 10:03 Dose: 81 mg Atorvastatin Calcium (Lipitor) 40 mg PO DIN [facility] Dextrose (Dextrose 50% Inj) 0 ml IV STAT PRN; Protocol PRN Reason: Hypoglycemia Protocol Dextrose (Dextrose 5% In Water 1000 Ml) 1,000 mls @ 0 mls/hr IV .Q0M PRN; Protocol; Per Protocol PRN Reason: Hypoglycemia Protocol Meropenem 500 mg/ Sodium (Chloride) 50 mls @ 100 mls/hr IVPB Q12 [facility] PRN Reason: Protocol Stop: 05/17/18 10:16 Last Admin: 05/11/18 09:57 Dose: 100 mls/hr Heparin Sodium/Sodium Chloride (Heparin 30459 Units/250ml 1/2 Normal Saline) 25 ,000 units in 250 mls @ 10.102 mls/hr IV .Q24H [facility]; 12 UNITS/KG/HR PRN Reason: Protocol Last Admin: 05/10/18 23:10 Dose: 12 units/kg/hr, 10.102 mls/hr Potassium Chloride 20 meq/ (Sodium Chloride) 1,010 mls @ 100 mls/hr IV .Q10H6M [facility] Last Admin: 05/11/18 12:36 Dose: 100 mls/hr Insulin Detemir (Levemir) 24 unit SC HS [facility] Insulin Human Lispro (Humalog Low) 0 units SC ACHS [facility] PRN Reason: Protocol Last Admin: 05/11/18 12:35 Dose: Not Given Insulin Human Lispro (Humalog) 10 units SC AC [facility] Last Admin: 05/11/18 12:40 Dose: 10 u Metoprolol Tartrate (Lopressor) 25 mg PO DAILY [facility] Last Admin: 05/11/18 10:02 Dose: 25 mg Pantoprazole Sodium (Protonix Inj) 40 mg IVP 0700 [facility] Last Admin: 05/11/18 09:56 Dose: Not Given Pantoprazole Sodium (Protonix Inj) 40 mg IVP Q12 [facility] Last Admin: 05/11/18 10:03 Dose: 40 mg - Labs Labs: 05/11/18 06:00 05/11/18 06:00 PT 16.6 SECONDS (9.4-12.5) H 05/09/18 23:50 INR 1.45 05/09/18 23:50 APTT 56.8 Seconds (25.1-36.5) H 05/11/18 12:20
--- NOTE | 2018-05-11 13:49 | PN ---
Copied To: Yahir Jones MD Attending MD: Yahir Jones MD DATE: 05/11/2018 [employer] HEL[employer] NOTE SUBJECTIVE: Patient is awake and alert. Still on insulin drip as well as IV fluids. Dr. Fenton is the dramatic agent who was handling the treatment for the DKA. The patient has no significant complaints. No fever or chills. No nausea or vomiting. No abdominal pain. No chest pain. No cough. PHYSICAL EXAMINATION: VITAL SIGNS: Note that his temperature is 99.1, pulse is 90, respirations of 21, BP is 157/95, O2 saturation is 99%. HEENT: Head is atraumatic, normocephalic. Eyes reactive to light. Ear, nose, and throat seem to be within normal limits. NECK: Supple. No JVD. No thyroid enlargement or lymph nodes. HEART: Regular rate and rhythm. Normal S1, S2. LUNGS: Reveal good breath sounds bilaterally. ABDOMEN: Soft and nontender. Decreased bowel sounds. GENITALIA: Deferred. RECTAL: Deferred. MUSCULOSKELETAL: No joint deformities. EXTREMITIES: Reveal trace lower extremity edema. NEUROLOGIC: He seemed to be grossly intact. LABORATORY DATA: As far as his laboratories are concerned, his white count is 22.6, hemoglobin is 11.9, hematocrit 33.3 with platelets of 262,000. Sodium is 146, potassium 3.4, chloride 115, CO2 of 20. BUN of 30, creatinine of 1.3. Glucose of 230. Elevated troponin of 2.39. IMPRESSION: As far as my impression, this patient has diabetic ketoacidosis, has a history of severe depression, has mild renal insufficiency with history of hypertension and hyperlipidemia. It is noted that he has increased white count with possible sepsis and continues to have metabolic acidosis. The patient has acute pancreatitis and increased troponin with possible myocardial infarction. PLAN: As far as my plan, we will continue to follow recommendations of the dramatic agent with insulin drip and IV fluids. We will follow electrolytes closely and correct as needed. The patient is getting aspirin as well as heparin and is on Lipitor, and has been started on Levemir as well. She is on Lopressor as well as meropenem for antibiotics and continues to get the Protonix. We will continue to treat aggressively along with the other consultants and the primary care doctor. Yahir Jones MD [facility] # [id number]
[2018-05-11 14:39] LABS: CK MB% 2.3 % (2.5-3.0); CK-MB 9.4 ng/mL (0.0-3.6)
--- NOTE | 2018-05-11 16:24 | CP.PCM.PN ---
<Jose C Walker - Last Filed: 05/11/18 15:46> Subjective - Date & Time of Evaluation Date of Evaluation: 05/11/18 Time of Evaluation: 15:46 - Subjective Subjective: Jose C Walker D.O PGY-1, Internal Medicine progress note for Patient was examined at bedside, no acute overnight events. Patient offers no new complaints at this time. Denies fevers, chills, chest pain, shortness of breath, abdominal pain, N/V/D. Objective - Vital Signs/Intake and Output Vital Signs (last 24 hours): Temp Pulse Resp BP Pulse Ox 99.1 F 87 21 147/90 99 05/10/18 05:18 05/11/18 10:02 05/11/18 07:30 05/11/18 10:02 05/11/18 07:30 Intake and Output: 05/11/18 05/11/18 06:59 18:59 Intake Total 50 Output Total 1000 Balance -950 - Medications Medications: Current Medications Aspirin (Ecotrin) 81 mg PO DAILY [facility] Last Admin: 05/11/18 10:03 Dose: 81 mg Atorvastatin Calcium (Lipitor) 40 mg PO DIN [facility] Dextrose (Dextrose 50% Inj) 0 ml IV STAT PRN; Protocol PRN Reason: Hypoglycemia Protocol Dextrose (Dextrose 5% In Water 1000 Ml) 1,000 mls @ 0 mls/hr IV .Q0M PRN; Protocol; Per Protocol PRN Reason: Hypoglycemia Protocol Meropenem 500 mg/ Sodium (Chloride) 50 mls @ 100 mls/hr IVPB Q12 [facility] PRN Reason: Protocol Stop: 05/17/18 10:16 Last Admin: 05/11/18 09:57 Dose: 100 mls/hr Heparin Sodium/Sodium Chloride (Heparin 20137 Units/250ml 1/2 Normal Saline) 25 ,000 units in 250 mls @ 10.102 mls/hr IV .Q24H [facility]; 12 UNITS/KG/HR PRN Reason: Protocol Last Admin: 05/10/18 23:10 Dose: 12 units/kg/hr, 10.102 mls/hr Potassium Chloride 20 meq/ (Sodium Chloride) 1,010 mls @ 100 mls/hr IV .Q10H6M [facility] Last Admin: 05/11/18 12:36 Dose: 100 mls/hr Insulin Detemir (Levemir) 24 unit SC HS [facility] Insulin Human Lispro (Humalog Low) 0 units SC ACHS [facility] PRN Reason: Protocol Last Admin: 05/11/18 12:35 Dose: Not Given Insulin Human Lispro (Humalog) 10 units SC AC [facility] Last Admin: 05/11/18 12:40 Dose: 10 u Metoprolol Tartrate (Lopressor) 25 mg PO DAILY [facility] Last Admin: 05/11/18 10:02 Dose: 25 mg Pantoprazole Sodium (Protonix Inj) 40 mg IVP 0700 [facility] Last Admin: 05/11/18 09:56 Dose: Not Given Pantoprazole Sodium (Protonix Inj) 40 mg IVP Q12 [facility] Last Admin: 05/11/18 10:03 Dose: 40 mg - Labs Labs: 05/11/18 06:00 05/11/18 06:00 PT 16.6 SECONDS (9.4-12.5) H 05/09/18 23:50 INR 1.45 05/09/18 23:50 APTT 56.8 Seconds (25.1-36.5) H 05/11/18 12:20 - Constitutional Appears: No Acute Distress - Head Exam Head Exam: ATRAUMATIC, NORMAL INSPECTION - Eye Exam Eye Exam: Normal appearance - ENT Exam ENT Exam: Mucous Membranes Moist - Respiratory Exam Respiratory Exam: Clear to Ausculation Bilateral. absent: Rales, Rhonchi, Wheezes - Cardiovascular Exam Cardiovascular Exam: REGULAR RHYTHM, +S1, +S2. absent: Gallop, Rubs, Murmur - GI/Abdominal Exam GI & Abdominal Exam: Soft, Normal Bowel Sounds. absent: Tenderness - Extremities Exam Extremities Exam: absent: Calf Tenderness, Pedal Edema - Neurological Exam Neurological Exam: Alert, Awake, Oriented x3 - Psychiatric Exam Psychiatric exam: Normal Affect, Normal Mood - Skin Skin Exam: Dry, Intact, Warm Assessment and Plan - Assessment and Plan (Free Text) Assessment: 58 year old male with past medical history of diabetes with insulin pump, hypertension, bicuspid aortic valve, rhabdomyolysis, and hyperlipidemia presents with hyperventilation and foaming at the mouth on presentation. Patient is admitted to ICU for DKA. Plan: Diabetic ketoacidosis -likely 2/2 insufficient insulin from insulin pump vs infection vs pancreatitis -random blood glucose in the 200's today -Initial blood glucose: 1173 on admission -Accucheck Q1 -BMP Q4 -Hypoglycemia protocol in place -Insulin drip discontinued -HbA1c: 7.7 -Endocrinology, consulted- Dr. Fenton Leukocytosis -likely 2/2 to DKA vs infection -Elevated at 22.6 from 45.1 on admission- downtrending -SIRS criteria fulfilled on admission 12/26: WBC: 45.1, RR: 22, HR: 129, Temperature: 96.5. -c/w Meropenem -CXR ordered to rule out pneumonia. -UA: negative -Abdominal CT: negative -Blood culture: no growth after 1 day -C diff antigen and toxin: negative -MRSA not detected -ID consulted, Dr. Holman -Continue to monitor. Elevated lipase -likely 2/2 to pancreatitis -Lipase: 448 from 4784- downtrending -CT abdomen: negative -diet advanced to liquid diet Elevated troponins -need to rule out cardiac causes -Troponin: 3.25, 2.39, 1.46- downtrending -EKG NSR at 90 bpm, no ischemia -Cardiology consulted, Dr. Escoto Depression -patient endorsed to nurse that he wishes to yesterday- patient denies being depressed today -psychiatry consulted, Dr. Acosta Anion gap metabolic acidosis- resolved -likely 2/2 DKA vs lactic acidosis vs uremia -Anion gap: 16 today -Continue IVF Acute Kidney Injury- resolving -BUN/Cr: 30/1.3. Baseline Creatinine is 0.8 -Avoid nephrotoxins, IV contrast -Continue IVF NS @ 100ml/hr -Continue to monitor. -Nephrology consulted, Dr. Multani Hypotension- resolved -Most likely 2/2 dehydration - BP: 92/65 on admission. BP has increased to 118/60 -1/2 NS with insulin drip -Continue to monitor. Thrombocytosis - resolved -Likely falsely elevated platelet count due to dehydration. -Continue to monitor. Hyponatremia- resolved -falsely decreased. Corrected sodium is 147. -Giving 1/2 NS due to normal high sodium level. -Continue to monitor. Hyperkalemia- resolved -likely 2/2 to DKA -continue to monitor Hypochloremia -Likely due to multiple episodes of vomiting. -1/2 NS continued. -Continue to monitor on BMP Q4 Elevated albumin- resolved -Albumin: 3.0 today -Likely 2/2 to dehydration -Continue to monitor. DVT prophylaxis: heparin GI prophylaxis: protonix 40 mg daily CODE STATUS After speaking with family and reviewing previous documentation patient's code status was unable to be documented. In discussion with daughter at bedside in ED she mentioned the patient desired to be DNR and DNI on last admission in November 2016. From review of chart, there is no indication of a code status being documented or followed up. Patient follow up with Dr. Edgar and [facility] for psychiatric disorders. Attempted to speak with patient's PCP, Dr. Edgar. He was unavel to be reached to discuss patient case and code status. Daughter at bedside provided information from the [facility] in [place] where the patient primarily receies his medical attention. Will attempt to reach [facility] in the morning to see if there is any documentation regarding code status available. At this time, patient's code status appears to be legally unclear/undefined and thus he will be treated as a full code. Patient case reviewed with and plan approved by attending physician, Dr. Spears <Michelle Spears - Last Filed: 05/12/18 07:56> Objective - Vital Signs/Intake and Output Vital Signs (last 24 hours): Temp Pulse Resp BP Pulse Ox 98.6 F 90 26 H 136/91 H 92 L 05/11/18 17:48 05/12/18 01:00 05/12/18 01:00 05/12/18 00:00 05/12/18 01:00 Intake and Output: 05/12/18 05/12/18 06:59 18:59 Intake Total 250 Balance 250 - Medications Medications: Current Medications Aspirin (Ecotrin) 81 mg PO DAILY [facility] Last Admin: 05/11/18 10:03 Dose: 81 mg Atorvastatin Calcium (Lipitor) 40 mg PO DIN [facility] Last Admin: 05/11/18 17:14 Dose: Not Given Dextrose (Dextrose 50% Inj) 0 ml IV STAT PRN; Protocol PRN Reason: Hypoglycemia Protocol Dextrose (Dextrose 5% In Water 1000 Ml) 1,000 mls @ 0 mls/hr IV .Q0M PRN; Protocol; Per Protocol PRN Reason: Hypoglycemia Protocol Meropenem 500 mg/ Sodium (Chloride) 50 mls @ 100 mls/hr IVPB Q12 [facility] PRN Reason: Protocol Stop: 05/17/18 10:16 Last Admin: 08/18/18 21:27 Dose: 100 mls/hr Heparin Sodium/Sodium Chloride (Heparin 55782 Units/250ml 1/2 Normal Saline) 25 ,000 units in 250 mls @ 10.102 mls/hr IV .Q24H [facility]; 12 UNITS/KG/HR PRN Reason: Protocol Last Admin: 05/12/18 01:19 Dose: 12 units/kg/hr, 10.102 mls/hr Potassium Chloride 20 meq/ (Sodium Chloride) 1,010 mls @ 100 mls/hr IV .Q10H6M [facility] Last Admin: 05/11/18 12:36 Dose: 100 mls/hr Insulin Detemir (Levemir) 24 unit SC HS [facility] Last Admin: 05/11/18 21:32 Dose: 24 u Insulin Human Lispro (Humalog Low) 0 units SC ACHS [facility] PRN Reason: Protocol Last Admin: 05/11/18 21:26 Dose: Not Given Insulin Human Lispro (Humalog) 6 units SC AC [facility] Metoprolol Tartrate (Lopressor) 25 mg PO DAILY [facility] Last Admin: 05/11/18 10:02 Dose: 25 mg Pantoprazole Sodium (Protonix Inj) 40 mg IVP 0700 [facility] Last Admin: 05/12/18 07:13 Dose: 40 mg Pantoprazole Sodium (Protonix Inj) 40 mg IVP Q12 [facility] Last Admin: 05/11/18 21:30 Dose: 40 mg - Labs Labs: 05/12/18 05:45 05/12/18 05:45 PT 16.6 SECONDS (9.4-12.5) H 05/09/18 23:50 INR 1.45 05/09/18 23:50 APTT 47.3 Seconds (25.1-36.5) H 05/12/18 05:45 Attending/Attestation - Attestation I have personally seen and examined this patient.: Yes I have fully participated in the care of the patient.: Yes I have reviewed all pertinent clinical information, including history, physical exam and plan: Yes Notes (Text): 05/11/18 58 year old male with past medical history of type 1 diabetes on insulin pump, hypertension, bicuspid aortic valve and history of rhabdomyolysis who presented with DKA. He is s/p insulin drip; currrently on levemir and insulin ss. Hemoglobin A1c is 7.7. Endocrinology is following. He also had SIRS with significant leukocytosis (45.1) and tachycardia, both which are improving. UA/BCX were negativ. CT abd/pelvis was negative. He is on broad spectrum antibiotics. ID is following. He had MARCELLE initially which is resolved after receiving fluids. He also had possible pancreatitis with elevated lipase and initially had abdominal pain, nausea, vomiting and diarrhea. His GI complaints are improved and his diet is advanced as tolerated. He was noted to have elevated troponins; possible NSTEMI. He is on aspirin, metoprolol and heparin drip. He is not on statin for now due to mildly elevated CPK and history of rhabdomyolysis. He was not started on ALANNA-i due to MARCELLE upon initial presentation. Cardiology evaluation was requested. Patient was delirous yesterday but per nurse mentioned depressed thoughts which he denies today. Psychiatry evaluation was requested. Michelle Spears MD Hospitalist.
[2018-05-11] MEDS ORDERED: Insulin Detemir 100 units/ml Vial (Levemir) SC SCH (22:00)
[2018-05-12] MEDS: Heparin25000 units/250ml 1/2NS 25,000 UNITS/250 ML BAG IV SCH ×2 (01:19→23:00)
[2018-05-12 06:22] LABS: BASO # 0.01 K/mm3 (0.0-2.0); BASO % 0.1 % (0.0-3.0); GRAN # 8.79 (1.4-6.5); GRAN % 81.4 % (50.0-68.0); HEMOGLOBIN 12.2 g/dL (14.0-18.0); LYMPH # 1.3 (1.2-3.4); LYMPH % 11.8 % (22.0-35.0); MEAN CELL VOLUME 84.8 fl (80.0-105.0); MEAN CORPUSCULAR HGB CONC 35.4 g/dl (31.0-37.0); MEAN PLATELET VOLUME 9.8 fl (7.0-11.0); MONO # 0.7 (0.1-0.6); MONO % 6.7 % (1.0-6.0); RBC 4.07 10^6/uL (3.5-6.1); RED CELL DISTRIBUTION WIDTH 12.7 % (11.5-14.5); WHITE BLOOD COUNT 10.8 10^3/ul (4.5-11.0)
[2018-05-12 07:14] LABS: ALB/GLOB RATIO 1.5 (1.1-1.8); ALBUMIN 3.2 g/dL (3.0-4.8); ALT/SGPT 67 U/L (7-56); AST/SGOT 53 U/L (17-59); BLOOD UREA NITROGEN 18 mg/dL (7-21); CALCIUM 8.4 mg/dL (8.4-10.5); GFR NON-AFRICAN AMERICAN > 60
[2018-05-12] MEDS ORDERED: Insulin Lispro 1 UNITS/0.01 ML SC ONE (07:21)
[2018-05-12] MEDS ORDERED: Insulin Reg-MEDIUM-Coverage SC SCH (07:30)
[2018-05-12] MEDS ORDERED: Insulin Lispro 1 UNITS/0.01 ML SC SCH (07:30)
[2018-05-12] MEDS: Insulin Lispro (humaLOG) LOW Coverage SC SCH ×4 (07:34→21:48)
--- NOTE | 2018-05-12 10:08 | PN ---
Copied To: Laurel Fenton MD Attending MD: Laurel Fenton MD DATE: 05/12/2018 ENDOCRINOLOGY FOLLOWUP NOTE LOCATION: [facility]U 129, room 4. SUBJECTIVE: This is a 58-year-old male with recent uncontrolled type 1 insulin-dependent diabetes, presenting here with diabetic ketoacidosis and dehydration and continues to have fluctuating glycemic levels as noted thereof. His glucose values have ranged from 212-230 mg/dL. His latest chemistry showed a BUN of 18, sodium 142, potassium 4.3, chloride 107, CO2 of 19, glucose 399, and creatinine 1. So, at this time, we will modify once again his basal and bolus insulin regimen and increase the Levemir to 30 units subcu at bedtime daily to start tonight. We will titrate incrementally as indicated to optimize metabolic control. We will also continue the low-dose correction scale using Humalog insulin as given. We will increase his Humalog to 10 units subcu t.i.d. before meals to start today as ordered. We will titrate incrementally as indicated to optimize metabolic control. We will obtain serial chemistries and supplement accordingly as needed. We will follow. Laurel Fenton MD
[2018-05-12] MEDS: Insulin Lispro 1 UNITS/0.01 ML SC SCH ×2 (11:18→16:51)
--- NOTE | 2018-05-12 11:27 | PN ---
Copied To: Jani Vega MD Attending MD: Jani Vega MD DATE: 05/12/2018 SUBJECTIVE: Patient is in bed, no acute distress, nontoxic. PHYSICAL EXAMINATION: VITAL SIGNS: Temperature is 98, blood pressure is 130/60, respiratory rate of 18. HEENT: Unremarkable. NECK: Supple. LUNGS: Have decreased breath sounds. HEART: Normal S1, S2. ABDOMEN: Soft, nontender. LABORATORY DATA: Laboratory examination is noted with white count today is at 10.8, hemoglobin of 12, platelets of 201 and BUN of 18, creatinine of 1, elevated troponins. Urinalysis is noted. Toxicology is reviewed. HIV is negative. Microbiology reveals blood cultures have no growth at 48 hours and nasal MRSA screen is negative and stool for C. Diff antigen and toxin are also negative. Review of orders reveals the patient to be on meropenem. ASSESSMENT AND PLAN: A 58-year-old male who was seen earlier today in [facility], bed 4, admitted with systemic inflammatory response syndrome, acute encephalopathy, acute renal failure, elevated troponins, [id number] myocardial infarction and diabetic ketoacidosis in a patient with insulin-dependent diabetic and hypertension and bicuspid aortic valve and rhabdomyolysis, thus far with negative cultures, negative CAT scan of the chest, negative CAT scan of the abdomen, negative methicillin-resistant Staphylococcus aureus screen, negative human immunodeficiency virus, negative stool for Clostridium difficile. No evidence of infection. We will discontinue the meropenem. We will follow the patient closely off of antibiotics, now with the patient has normal white count and afebrile. The patient is at risk for developing nosocomial infections. Jani Vega MD
--- NOTE | 2018-05-12 14:33 | CP.PCM.PN ---
<Jose C Walker - Last Filed: 05/12/18 15:48> Subjective - Date & Time of Evaluation Date of Evaluation: 05/12/18 Time of Evaluation: 14:23 - Subjective Subjective: Jose C Walker D.O PGY-1, Internal Medicine progress note for Dr. Spears Patient was examined at bedside, no acute overnight events. Patient offers no new complaints at this time. Denies fevers, chills, chest pain, shortness of breath, abdominal pain, N/V/D. Objective - Vital Signs/Intake and Output Vital Signs (last 24 hours): Temp Pulse Resp BP Pulse Ox 98.6 F 93 H 21 141/86 97 05/11/18 17:48 05/12/18 12:30 05/12/18 12:30 05/12/18 12:00 05/12/18 12:30 Intake and Output: 05/12/18 05/12/18 06:59 18:59 Intake Total 1100 Output Total 5 Balance 1095 - Medications Medications: Current Medications Acetaminophen (Tylenol 325mg Tab) 650 mg PO Q6H PRN PRN Reason: Headache Last Admin: 05/12/18 11:22 Dose: 650 mg Aspirin (Ecotrin) 81 mg PO DAILY [facility] Last Admin: 05/12/18 09:38 Dose: 81 mg Atorvastatin Calcium (Lipitor) 40 mg PO DIN [facility] Last Admin: 05/11/18 17:14 Dose: Not Given Dextrose (Dextrose 50% Inj) 0 ml IV STAT PRN; Protocol PRN Reason: Hypoglycemia Protocol Dextrose (Dextrose 5% In Water 1000 Ml) 1,000 mls @ 0 mls/hr IV .Q0M PRN; Protocol; Per Protocol PRN Reason: Hypoglycemia Protocol Heparin Sodium/Sodium Chloride (Heparin 74653 Units/250ml 1/2 Normal Saline) 25 ,000 units in 250 mls @ 10.102 mls/hr IV .Q24H [facility]; 12 UNITS/KG/HR PRN Reason: Protocol Last Admin: 05/12/18 01:19 Dose: 12 units/kg/hr, 10.102 mls/hr Potassium Chloride 20 meq/ (Sodium Chloride) 1,010 mls @ 75 mls/hr IV .[id number] [facility] Insulin Detemir (Levemir) 30 unit SC HS [facility] Insulin Human Lispro (Humalog Low) 0 units SC ACHS [facility] PRN Reason: Protocol Last Admin: 05/12/18 11:30 Dose: Not Given Insulin Human Lispro (Humalog) 10 units SC [facility] Last Admin: 05/12/18 11:18 Dose: 10 unit Metoprolol Tartrate (Lopressor) 25 mg PO BID [facility] Pantoprazole Sodium (Protonix Ec Tab) 40 mg PO 0600 [facility] - Labs Labs: 05/12/18 05:45 05/12/18 05:45 PT 16.6 SECONDS (9.4-12.5) H 05/09/18 23:50 INR 1.45 05/09/18 23:50 APTT 47.3 Seconds (25.1-36.5) H 05/12/18 05:45 - Constitutional Appears: No Acute Distress - Head Exam Head Exam: ATRAUMATIC, NORMAL INSPECTION - Eye Exam Eye Exam: Normal appearance - ENT Exam ENT Exam: Mucous Membranes Moist - Respiratory Exam Respiratory Exam: Clear to Ausculation Bilateral. absent: Rales, Rhonchi, Wheezes, Respiratory Distress - Cardiovascular Exam Cardiovascular Exam: REGULAR RHYTHM, +S1, +S2. absent: Gallop, Rubs, Murmur - GI/Abdominal Exam GI & Abdominal Exam: Soft, Normal Bowel Sounds. absent: Tenderness - Extremities Exam Extremities Exam: absent: Calf Tenderness, Pedal Edema - Neurological Exam Neurological Exam: Alert, Awake, Oriented x3 - Psychiatric Exam Psychiatric exam: Normal Affect, Normal Mood - Skin Skin Exam: Dry, Intact, Normal Color, Warm Assessment and Plan - Assessment and Plan (Free Text) Assessment: Mr. Pineda is a 58 year old male with past medical history of diabetes with insulin pump, hypertension, bicuspid aortic valve, rhabdomyolysis, and hyperlipidemia presents with hyperventilation and foaming at the mouth on presentation. Patient is admitted to ICU for DKA. Plan: Diabetic ketoacidosis - likely 2/2 insufficient insulin from insulin pump vs infection vs pancreatitis - Initial blood glucose: 1173 on admission - Accucheck Q1, AC, HS - Continue IVF NS @ 75ml/hr - Hypoglycemia protocol in place - Insulin drip discontinued - C/w Levemir 30unit SC HS and Humalog 10unit SC AH - ISS low - HbA1c: 7.7 -Endocrinology, consulted- Dr. Fenton Leukocytosis- resolved - likely 2/2 to DKA vs infection - WBC 10.8 today - c/w Meropenem - UA: negative - Abdominal CT: negative - Blood culture: no growth after 2 day - C diff antigen and toxin: negative - MRSA not detected - ID consulted, Dr. Holman - Continue to monitor Elevated lipase - likely 2/2 to pancreatitis - Lipase: 448 from 4784- downtrending - Triglycerides 134 from 314 on admission - CT abdomen: negative - Diet advanced to normal diet Elevated troponins - need to rule out cardiac causes - Troponin: 3.25, 2.39, 1.46- downtrending - EKG NSR at 90 bpm, no ischemia - Cardiology consulted, Dr. Escoto Depression - patient denies being depressed today - psychiatry consulted, Dr. Acosta Anion gap metabolic acidosis- resolved - likely 2/2 DKA vs lactic acidosis vs uremia - Anion gap: 20 today Acute Kidney Injury- resolved - BUN/Cr: 18/1.0 - Avoid nephrotoxins, IV contrast - Continue to monitor. - Nephrology consulted, Dr. Multani Code status: Patient AAO x 3, signed DNR/DNI form on 05/12/2018 DVT prophylaxis: heparin GI prophylaxis: protonix 40 mg daily Patient case reviewed with and plan approved by attending physician, Dr. Spears <Michelle Spears - Last Filed: 05/12/18 16:40> Objective - Vital Signs/Intake and Output Vital Signs (last 24 hours): Temp Pulse Resp BP Pulse Ox 98.6 F 93 H 21 141/86 97 05/11/18 17:48 05/12/18 12:30 05/12/18 12:30 05/12/18 12:00 05/12/18 12:30 Intake and Output: 05/12/18 05/12/18 06:59 18:59 Intake Total 1100 Output Total 5 Balance 1095 - Medications Medications: Current Medications Acetaminophen (Tylenol 325mg Tab) 650 mg PO Q6H PRN PRN Reason: Headache Last Admin: 05/12/18 11:22 Dose: 650 mg Aspirin (Ecotrin) 81 mg PO DAILY [facility] Last Admin: 05/12/18 09:38 Dose: 81 mg Atorvastatin Calcium (Lipitor) 40 mg PO DIN [facility] Last Admin: 05/11/18 17:14 Dose: Not Given Dextrose (Dextrose 50% Inj) 0 ml IV STAT PRN; Protocol PRN Reason: Hypoglycemia Protocol Dextrose (Dextrose 5% In Water 1000 Ml) 1,000 mls @ 0 mls/hr IV .Q0M PRN; Protocol; Per Protocol PRN Reason: Hypoglycemia Protocol Heparin Sodium/Sodium Chloride (Heparin 89114 Units/250ml 1/2 Normal Saline) 25 ,000 units in 250 mls @ 10.102 mls/hr IV .Q24H [facility]; 12 UNITS/KG/HR PRN Reason: Protocol Last Admin: 05/12/18 01:19 Dose: 12 units/kg/hr, 10.102 mls/hr Potassium Chloride 20 meq/ (Sodium Chloride) 1,010 mls @ 75 mls/hr IV .[id number] [facility] Insulin Detemir (Levemir) 30 unit SC HS [facility] Insulin Human Lispro (Humalog Low) 0 units SC ACHS [facility] PRN Reason: Protocol Last Admin: 05/12/18 11:30 Dose: Not Given Insulin Human Lispro (Humalog) 10 units SC AC [facility] Last Admin: 05/12/18 11:18 Dose: 10 unit Metoprolol Tartrate (Lopressor) 25 mg PO BRKDIN [facility] Pantoprazole Sodium (Protonix Ec Tab) 40 mg PO 0600 [facility] - Labs Labs: 05/12/18 05:45 05/12/18 05:45 PT 16.6 SECONDS (9.4-12.5) H 05/09/18 23:50 INR 1.45 05/09/18 23:50 APTT 47.3 Seconds (25.1-36.5) H 05/12/18 05:45 Attending/Attestation - Attestation I have personally seen and examined this patient.: Yes I have fully participated in the care of the patient.: Yes I have reviewed all pertinent clinical information, including history, physical exam and plan: Yes Notes (Text): 05/12/18 16:35 58 year old male with past medical history of type 1 diabetes on insulin pump, hypertension, bicuspid aortic valve and history of rhabdomyolysis who presented with DKA. He is s/p insulin drip; currrently on levemir and insulin ss. Hemoglobin A1c is 7.7. Endocrinology is following and his insulin was adjusted today. He also had SIRS with significant leukocytosis (45.1) and tachycardia, both which have improved. UA/BCX were negative. CT abd/pelvis was negative. He was on broad spectrum antibiotics which is now discontinued. He had MARCELLE initially which has resolved after receiving fluids. He also had possible pancreatitis with elevated lipase and initially had abdominal pain, nausea, vomiting and diarrhea. His GI complaints are improved and his diet is advanced as tolerated. He was noted to have elevated troponins; possible NSTEMI. He is on aspirin, metoprolol and heparin drip. He is not on statin for now due to mildly elevated CPK and history of rhabdomyolysis. He was not started on ALANNA-i due to MARCELLE upon initial presentation. Cardiology evaluation was requested and pending. Patient was delirous initially but per nurse mentioned depressed thoughts which he denies today. He was seen by psychiatrist this weekend; awaiting recommendations. Michelle Spears MD Hospitalist.
--- NOTE | 2018-05-12 18:14 | CON ---
Copied To: Doug Escoto MD Attending MD: Doug Escoto MD DATE: 05/12/2018 INDICATIONS: DKA, positive troponin's, and aortic valve disease. HISTORY OF PRESENT ILLNESS: This is a 58-year-old man admitted on 05/10/2018, with DKA and multiple metabolic derangements. He has been in the intensive care unit and treated with IV fluids, insulin, and antibiotics. He initially presented with atrial fibrillation, but this has reverted to sinus rhythm. He has a history of bicuspid aortic valve. He is followed by physicians in the [facility]. This morning, he is resting comfortably in bed. He has no chest pain or shortness of breath. He never had chest pain or shortness of breath. He is not sure what triggered the DKA. He has had DKA in the past and was very sick about a year ago stating that he was in a coma for some period of time. There is no orthopnea, PND, syncope, presyncope, lightheadedness, dizziness, vertigo, palpitations, edema, claudication, fever, chills, cough, sputum production, hemoptysis, abdominal pain, nausea, vomiting, diarrhea, constipation, or melena. His troponin's have been elevated. PAST MEDICAL HISTORY: Notable for diabetes with insulin pump, hypertension, hyperlipidemia, and bicuspid aortic valve. CURRENT MEDICATIONS: Include aspirin, heparin, insulin, Lipitor, metoprolol, Protonix, and saline. ALLERGIES: THERE WERE NO KNOWN MEDICATION ALLERGIES. SOCIAL HISTORY: He does not smoke cigarettes. She does not drink alcohol significantly. He has not used drugs. He is having financial difficulties. He states that he will be homeless in 6 weeks. He is . FAMILY HISTORY: Noncontributory. REVIEW OF SYSTEMS: A 10-point review of systems is otherwise unremarkable except as noted above. PHYSICAL EXAMINATION: GENERAL: He is a well-developed male, sitting on his bed in the ICU, in no acute distress. VITAL SIGNS: Notable for sinus rhythm 65 beats per minute, afebrile, blood pressure 136/91, respirations 21 to 26, O2 sat 92% to 96% on nasal cannula and room air. HEENT: Reveal no neck vein distention, thyromegaly, or carotid bruits. Mucous membranes moist. Conjunctivae pink. NECK: Supple. LUNGS: Lung anna clear. HEART: Reveals normal first and second heart sounds. There is a systolic murmur in the aortic space and along the left sternal border. ABDOMEN: Soft. Bowel sounds present. No mass, organomegaly, tenderness, rebound, guarding, CVA tenderness, or palpable abdominal aortic aneurysm. EXTREMITIES: Reveal no cyanosis, clubbing, or edema. NEUROLOGIC: Awake, alert, and oriented. PSYCHIATRIC: Normal as to mood and affect. SKIN: Warm and dry. No rash or cellulitis. LABORATORY AND IMAGING: The echocardiogram revealed normal LV function, possible bicuspid aortic valve, [id number] aortic stenosis, trace aortic insufficiency, mitral regurgitation, [id number] tricuspid regurgitation. The chest x-ray revealed no active disease. CT of the chest, abdomen, and pelvis with no acute findings. Follow-up EKG revealed normal sinus rhythm and normal EKG. The initial EKG demonstrated atrial fibrillation, rapid ventricular response, wide QRS, and ST-T wave changes. White count today 10,800, hemoglobin 12.2, hematocrit 34.5, and platelet count 201,000. PT/INR, PTT were unremarkable initially, PTT on heparin is 47.3 today. Blood gases are noted. Today's electrolytes: Normal Blood sugar 319. Calcium 6.5. IMPRESSION: Tru Pineda is a 58-year-old man with known bicuspid aortic valve, who developed paroxysmal atrial fibrillation at the time of acute diabetic ketoacidosis. He reverted to sinus rhythm with treatment of diabetic ketoacidosis. His diabetic ketoacidosis has improved, although he is still hyperglycemic. Given his normal LV function on echo, I believe the troponin's represent a nonspecific response to DKA rather than acute myocardial infarction. We should check a TSH. We will continue metoprolol. I will follow along with you. I will make additional recommendations based on clinical course. Once he is stabilized, he should be considered for a nuclear stress test. He may want to do this with his physicians at the [facility], but we can do it as an inpatient once he is stabilized if that is what he wishes. He is well aware of the diagnosis of bicuspid aortic valve. He has [id number]-[id number] aortic stenosis. He should be followed with periodic follow-up echocardiograms. An Popeye/ARB and a Statin can be added to his medical regimen. Doug Escoto MD [facility] # [id number] [facility]
[2018-05-12] MEDS: Insulin Detemir 100 units/ml Vial (Levemir) SC SCH (21:47)
[2018-05-13 04:25] LABS: BASO # 0.01 K/mm3 (0.0-2.0); BASO % 0.2 % (0.0-3.0); EOS % 0.5 % (1.5-5.0); GRAN # 3.72 (1.4-6.5); GRAN % 60.1 % (50.0-68.0); HEMOGLOBIN 13.9 g/dL (14.0-18.0); LYMPH % 32.2 % (22.0-35.0); MEAN CELL VOLUME 82.9 fl (80.0-105.0); MEAN CORPUSCULAR HEMOGLOBIN 30.4 pg (25.0-35.0); MEAN CORPUSCULAR HGB CONC 36.7 g/dl (31.0-37.0); MEAN PLATELET VOLUME 9.6 fl (7.0-11.0); MONO # 0.4 (0.1-0.6); RBC 4.57 10^6/uL (3.5-6.1); RED CELL DISTRIBUTION WIDTH 12.2 % (11.5-14.5)
[2018-05-13 04:37] LABS: WHITE BLOOD COUNT 6.2 10^3/ul (4.5-11.0)
[2018-05-13 05:08] LABS: ALB/GLOB RATIO 1.5 (1.1-1.8); ALBUMIN 3.9 g/dL (3.0-4.8); ALT/SGPT 56 U/L (7-56); AST/SGOT 33 U/L (17-59); BLOOD UREA NITROGEN 18 mg/dL (7-21); CALCIUM 9.3 mg/dL (8.4-10.5); GFR NON-AFRICAN AMERICAN > 60
[2018-05-13 05:13] LABS: FREE T4 1.39 ng/dL (0.78-2.19)
[2018-05-13] MEDS: Pantoprazole 40 mg EC Tab PO SCH (06:07)
--- NOTE | 2018-05-13 07:54 | CP.PCM.PN ---
<Nawaf Hogan - Last Filed: 05/13/18 15:48> Subjective - Date & Time of Evaluation Date of Evaluation: 05/13/18 Time of Evaluation: 07:53 - Subjective Subjective: Nawaf Hogan DO PGY1 - Internal Medicine Health It Specialist - Hospital Progress Note Patient was seen and examined at bedside in ICU; No acute events reported overnight Patient is in no acute distress, reported no overnight complaints 12 system ROS is otherwise negative. Objective - Vital Signs/Intake and Output Vital Signs (last 24 hours): Temp Pulse Resp BP Pulse Ox 98.1 F 71 17 121/63 95 05/12/18 08:35 05/13/18 05:40 05/13/18 06:10 05/13/18 06:00 05/13/18 06:10 Intake and Output: 05/13/18 05/13/18 06:59 18:59 Intake Total 1600 Output Total 750 Balance 850 - Medications Medications: Current Medications Acetaminophen (Tylenol 325mg Tab) 650 mg PO Q6H PRN PRN Reason: Headache Last Admin: 05/12/18 11:22 Dose: 650 mg Aspirin (Ecotrin) 81 mg PO DAILY [facility] Last Admin: 05/12/18 09:38 Dose: 81 mg Atorvastatin Calcium (Lipitor) 40 mg PO DIN [facility] Last Admin: 05/11/18 17:14 Dose: Not Given Dextrose (Dextrose 50% Inj) 0 ml IV STAT PRN; Protocol PRN Reason: Hypoglycemia Protocol Hydralazine HCl (Apresoline) 10 mg IVP Q6H PRN PRN Reason: sbp >160 or DBP >100 Last Admin: 05/13/18 01:46 Dose: 10 mg Dextrose (Dextrose 5% In Water 1000 Ml) 1,000 mls @ 0 mls/hr IV .Q0M PRN; Protocol; Per Protocol PRN Reason: Hypoglycemia Protocol Potassium Chloride 20 meq/ (Sodium Chloride) 1,010 mls @ 75 mls/hr IV .[id number] [facility] Last Admin: 05/12/18 17:09 Dose: 75 mls/hr Insulin Detemir (Levemir) 30 unit SC HS [facility] Last Admin: 05/12/18 21:47 Dose: 30 units Insulin Human Lispro (Humalog Low) 0 units SC ACHS [facility] PRN Reason: Protocol Last Admin: 05/12/18 21:48 Dose: 3 u Insulin Human Lispro (Humalog) 10 units SC AC [facility] Last Admin: 05/12/18 16:51 Dose: 10 unit Metoprolol Tartrate (Lopressor) 25 mg PO BRKDIN [facility] Last Admin: 05/12/18 17:08 Dose: 25 mg Pantoprazole Sodium (Protonix Ec Tab) 40 mg PO 0600 [facility] Last Admin: 05/13/18 06:07 Dose: 40 mg - Labs Labs: 05/13/18 04:10 05/13/18 04:10 PT 16.6 SECONDS (9.4-12.5) H 05/09/18 23:50 INR 1.45 05/09/18 23:50 APTT 70.8 Seconds (25.1-36.5) H 05/13/18 04:10 Physical Exam - Constitutional Appears: No Acute Distress, Patient appears comfortable - Head Exam Head Exam: ATRAUMATIC, NORMAL INSPECTION - Eye Exam Eye Exam: Normal appearance - ENT Exam ENT Exam: Mucous Membranes Moist - Respiratory Exam Respiratory Exam: Clear to Ausculation Bilateral. absent: Rales, Rhonchi, Wheezes, Respiratory Distress - Cardiovascular Exam Cardiovascular Exam: RRR, +Systolic Murmur at aortic position 3/6 - GI/Abdominal Exam GI & Abdominal Exam: Soft, Normal Bowel Sounds. absent: Tenderness - Extremities Exam Extremities Exam: Minimal LE edema BL - Neurological Exam Neurological Exam: Alert, Awake, Oriented x3 - Psychiatric Exam Psychiatric exam: Normal Affect, Normal Mood - Skin Skin Exam: Dry, Intact, Normal Color, Warm Assessment and Plan - Assessment and Plan (Free Text) Assessment: 58 year old male with past medical history of diabetes with insulin pump, hypertension, bicuspid aortic valve, rhabdomyolysis, and hyperlipidemia presents with hyperventilation and foaming at the mouth on presentation. Patient is admitted to ICU for DKA. Plan: Diabetic ketoacidosis - likely 2/2 insufficient insulin from insulin pump vs infection vs pancreatitis - Initial blood glucose: 1173 on admission - Anion gap closed; acidosis resolved; - C/w Levemir 30u SC HS - Decreased Humalog 6u SC AC - C/w ISS Low - Accucheck ACHS - AM glucose 184; POC Range 263-500 - Hypoglycemia protocol in place - HbA1c: 7.7 -Endocrinology, consulted- Dr. Fenton Leukocytosis- resolved - Likely 2/2 to DKA vs infection - Off of abx per ID - Blood Cx 2/2 negative @ 72H, MRSA not detected, CDiff Toxin negative Elevated lipase - likely 2/2 to pancreatitis, Lipase 4784 on adm w/ prior reported GI symptoms - CT abdomen: negative - Diet advanced to normal diet; Patient tolerating well no GI complaints Elevated troponins - need to rule out cardiac causes - Troponin: 3.25, 2.39, 1.46- downtrending - EKG NSR at 90 bpm, no ischemia - Possible Stress Test inpt vs outpt - Cardiology consulted, Dr. Escoto Depression - Patient voiced some suicidal ideation at time of admission; however given his lethargic state, unsure if patient is acutely suicidal - Patient reported no suicidal ideation or depression on exam - Psychiatry consulted, Appreciate reccs Acute Kidney Injury- resolved - Avoid nephrotoxins, IV contrast - Continue to monitor. - Lisinopril 20QD resumed - Nephrology consulted, Dr. Multani Code status: Patient AAO x 3, signed DNR/DNI form on 05/12/2018 DVT prophylaxis: heparin GI prophylaxis: protonix 40 mg daily Disposition: Med/Surg for stabilization post DKA; Will require psychology clearance for discharge given previous suicidal ideation. Patient seen, examined, and case discussed w/ attending physician Dr. Krysten Hogan DO PGY1 - Internal Medicine Health It Specialist - Pager [phone] <Krysten Hogan R - Last Filed: 05/14/18 08:38> Objective - Vital Signs/Intake and Output Vital Signs (last 24 hours): Temp Pulse Resp BP Pulse Ox 97.8 F 70 18 155/86 H 99 05/14/18 08:06 05/14/18 08:06 05/14/18 08:06 05/14/18 08:06 05/14/18 08:06 - Medications Medications: Current Medications Acetaminophen (Tylenol 325mg Tab) 650 mg PO Q6H PRN PRN Reason: Headache Last Admin: 05/12/18 11:22 Dose: 650 mg Aspirin (Ecotrin) 81 mg PO DAILY [facility] Last Admin: 05/13/18 09:37 Dose: 81 mg Atorvastatin Calcium (Lipitor) 40 mg PO DIN [facility] Last Admin: 05/11/18 17:14 Dose: Not Given Dextrose (Dextrose 50% Inj) 0 ml IV STAT PRN; Protocol PRN Reason: Hypoglycemia Protocol Hydralazine HCl (Apresoline) 10 mg IVP Q6H PRN PRN Reason: sbp >160 or DBP >100 Last Admin: 05/13/18 01:46 Dose: 10 mg Dextrose (Dextrose 5% In Water 1000 Ml) 1,000 mls @ 0 mls/hr IV .Q0M PRN; Protocol; Per Protocol PRN Reason: Hypoglycemia Protocol Insulin Detemir (Levemir) 30 unit SC HS [facility] Last Admin: 05/13/18 22:06 Dose: 30 units Insulin Human Lispro (Humalog Low) 0 units SC ACHS [facility] PRN Reason: Protocol Last Admin: 05/13/18 22:02 Dose: Not Given Insulin Human Lispro (Humalog) 6 units SC AC [facility] Last Admin: 05/13/18 16:17 Dose: 6 units Lisinopril (Zestril) 20 mg PO DAILY [facility] Last Admin: 05/13/18 11:59 Dose: 20 mg Metoprolol Tartrate (Lopressor) 50 mg PO BRKDIN [facility] Last Admin: 05/13/18 16:18 Dose: 50 mg Pantoprazole Sodium (Protonix Ec Tab) 40 mg PO 0600 [facility] Last Admin: 05/14/18 05:27 Dose: 40 mg - Labs Labs: 05/14/18 06:00 05/14/18 06:00 PT 16.6 SECONDS (9.4-12.5) H 05/09/18 23:50 INR 1.45 05/09/18 23:50 APTT 70.8 Seconds (25.1-36.5) H 05/13/18 04:10 Attending/Attestation - Attestation I have personally seen and examined this patient.: Yes I have fully participated in the care of the patient.: Yes I have reviewed all pertinent clinical information, including history, physical exam and plan: Yes Notes (Text): Patient seen and examined by me at 9:45AM with resident 05/13/18. Case including HPI, physical exam, and assessment and plan discussed with resident. Agree with above with following additions/corrections. Patient is a 58-year-old male with past medical history significant for insulin dependent diabetes, hypertension, bicuspid aortic valve, rhabdomyolysis, and hyperlipidemia that presented to the emergency room with multiple episodes of nausea, vomiting, diarrhea, hyperventilation, and foaming at the mouth. Patient states he is feeling ok. Feels better. Tolerating diet. No bowel movements for past day. No fevers or chills. No headaches or dizziness. No dysuria. No nausea, vomiting, or abdominal pain. No chest pain or shortness of breath. Physical exam: Gen: Awake and alert sitting in bed in no acute distress HEENT: Normocephalic, atraumatic. Extraocular muscles intact, pupils equal reactive. No scleral icterus. Oropharynx is pink and moist. No pharyngeal erythema or exudate appreciated. Neck is supple. Cardiovascular: Normal rhythm. Normal S1, S2. Positive systolic murmur. No rubs or gallops appreciated Pulmonary: Normal respiratory effort. No rhonchi, rales, or wheezing appreciated. Gastrointestinal: Soft, nontender, nondistended, positive bowel sounds all 4 quadrants, no guarding. Musculoskeletal: Moves all extremities. no calf tenderness. Bilateral lower extremity pitting edema. Central nervous system: AAO x 3. CN 2-12 grossly intact. Dermatologic: Skin warm and dry. Assessment and plan: Patient is a 58-year-old male with past medical history significant for insulin dependent diabetes, hypertension, bicuspid aortic valve , rhabdomyolysis, and hyperlipidemia that presented to the emergency room with multiple episodes of nausea, vomiting, diarrhea, hyperventilation, and foaming at the mouth. 1. DKA. Resolved. Off insulin drip. Endocrinology following, recommendations appreciated. Insulin doses being adjusted by endocrinology. Continue Levemir 30 units at bedtime, Humalog 6 units before meals, and insulin sliding scale. Continue diabetic diet. Monitor Accu-Cheks closely. Hemoglobin A1c 7.7 2. SIRS with leukocytosis. Resolved. Blood cultures with no growth. C. difficile negative. Patient status post antibiotics. ID following, recommendations appreciated. 3. Elevated troponins. Likely demand ischemia from DKA and dehydration. Cardiology following, recommendations appreciated. Stress test inpatient vs outpatient. Continue ASA, lipitor, and metoprolol. Monitor on telemetry. 2d echo per modeling manager shows normal chamber size, left ventricular hypertrophy, EF 60-65%, possible bicuspid aortic valve (please see official read for full details). 4. Pancreatitis. Elevated lipase. Now resolved. Patient is tolerating diet. No nausea, vomiting, or abdominal pain 5. MARCELLE. Resolved. Likely secondary to DKA and dehydration. Nephrology following , recommendations appreciated 6. Hypertension. Continue Metoprolol. Lisinopril added. 7. Depression. Pending psychiatric evaluation and recommendations 8. Nausea, vomiting, diarrhea on admission. Resolved. Likely secondary to DKA. C -diff negative. CT chest/abd/pelvis on admission per radiologist showed no acute findings related to/accounting for clinical presentation. 9. GI/DVT prophylaxis. Protonix and SCDs. 10. Patient is DNR/DNI. Case was discussed in detail with the patient regarding current diagnosis and treatment plan.
--- NOTE | 2018-05-13 08:09 | CON ---
Copied To: Yonny Acosta MD Attending MD: Yonny Acosta MD DATE: 05/11/2019 HISTORY OF PRESENT ILLNESS: The patient is a 58-year-old single white male with history of depression and anxiety, no psychiatric hospitalizations or history of any suicide attempts, [facility] and another psychiatric Dr. Alan, reportedly compliant with his medications, however he does not know the name of the medications, who is currently in the TCU with delirium that appears to have improved overnight. Please refer to medical list for further details regarding patient's multiple medical issues at this time. It is worth noting that the patient had extremely elevated glucose levels upon presentation and multiple medical issues contributing to his acute delirium yesterday. The patient appears to be more lucid this morning, and he is fairly cooperative with my questioning, though irritable that a psychiatric consult was called. He is very careful to indicate that there is a difference between DNR and actually wanting to . The patient does not recall a lot of the events from yesterday consistent with delirium; however, adamantly and vehemently denies wanting to kill himself or wanting to . The patient indicates that he probably was confused and was trying to remind people about his DNR--he feared he was going to be incapacitated by a stroke. This account is somewhat confirmed by history and physical that this provider reviewed, which indicated that the patient's code status was largely unknown; however, daughter at bedside in the ER mentioned that the patient has decided to be DNR and DNI on his last admission in 12/2016. The patient at bedside today indicates that he is DNR status; however, the medical team has not been able to obtain verification of this status. The patient denies wanting to . He reports he has a long history of depression, but denies that is severe. Still affected by experiences from when he was in the . Nonetheless, he is resourceful, optimistic, and has actively been making future plans. 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 Also there were a set of life insurance exams that he was supposed to take, and his recent hospitalization prevented him from making these commitments. 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 Regarding his DNR, patient indicates that he does not want to be one of those individuals who has no quality of life--who is unable to move his limbs with conscious thoughts. This is a respectable decision. Regarding his psychiatric medications, he reports that he has been taking some psychiatric medications prescribed by Dr. Alan in the [place], but does not know the name and he obtained the medications from the hospital itself and, does not obtain from a specific pharmacy. He is coherent, consistent, well-oriented and in good control. This provider does not know if he will continue to be delirious; however, he is lucid at this time. however, I cannot predict whether he would become confused again secondary to delirium's up and down nature. Regardless, he is not suicidal, he is not psychotic, not homicidal. He is well-related, future-oriented, and denies any current psychiatric needs that need to be addressed at this time. His insight and judgment are considered to be fair, now that he is lucid MEDICATIONS ON THE UNIT: The patient is not on any relevant psychiatric medications. Vital signs are reviewed by this provider. Blood pressures were elevated this morning. Labs shows leukocytosis at 22.6. Troponins are trending down to 1.46 this morning from 3.25 yesterday. His glucose is 230. Toxicology is not done. PSYCHIATRIC HISTORY: The patient denies having any Psychiatric hospitalization or history of suicide attempts. He past year since his prior hospitalization for hyperglycemia, has been in treatment with Dr. Alan and prescribed two medications for depression and anxiety; however, he is unable to provide me the names of these medications at this time. SOCIAL HISTORY: The patient was born in [place]. He was raised in [facility], graduated high school and college with [employer] and majored in Economics and Foreign Relations. Joined the [employer] from age of 20 to about 36 and then retired from the [employer] for medical reasons such as diagnosed with diabetes. 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 He denies any drug or alcohol issues. He has 2 daughters who are 26-year-old and a 14-year-old. He reports close relationship with his adult daughter at this time. IMPRESSION: Adjustment disorder with depression and anxiety, rule out major depressive disorder by history, rule out generalized anxiety disorder, rule out posttraumatic stress disorder as well as resolving delirium. RECOMMENDATIONS: At this time, the patient is psychiatrically cleared, he is not in acute danger to himself or other. Patient was clearly delirious when he made those statements and he is future-oriented and quite adamant that he does not want to . The patient indicates he has a DNR and appears to be reasonable about the reason why has the DNR, as he does not want to be incapacitated or a burden to the family members or have a nonexistent quality of life if he should be resuscitated and wholly unable to function. He does not have any history of suicide attempts and he is not considered a high-risk as long as he is not delirious; however, any individual IN GENERAL is considered a risk when they are delirious. At this time, he presents as earnest and consistent with his reports. He does not require a one-to-one in regard to his suicidal ideations; however, he might require one-to-one if delirium persists. Regardless, he denies having any psychiatric concerns at this time and indicates his plan to [facility]. The patient is being medically stabilized right now, and there is no acute indications to restart his psychiatric medications however, I do strongly recommend that medical team follow up and in general determining what his medication regimen is with his sister with patient's permission. Psychiatry will sign off at this time. Once the patient is medically stabilized, he may be resumed on his psychiatric medications; however, there is no indications to adjust them at this time. Please re-consult as necessary. Yonny Acosta MD [facility]
[2018-05-13] MEDS: Insulin Lispro (humaLOG) LOW Coverage SC SCH ×4 (08:14→22:02)
[2018-05-13] MEDS: Insulin Lispro 1 UNITS/0.01 ML SC SCH ×3 (08:17→16:17)
--- NOTE | 2018-05-13 08:57 | PN ---
Copied To: Yahir Jones MD Attending MD: Yahir Jones MD DATE: 05/12/2018 [employer]OOKMOBI[employer] LIBRARIAN NOTE LOCATION: [facility]. SUBJECTIVE: The patient is resting in bed and no complaints of shortness of breath, cough, wheezing, chest congestion, chest pain. No fever, chills, nausea or vomiting. The patient is off the insulin drip and started on fingerstick coverage with IV fluids. PHYSICAL EXAMINATION: VITAL SIGNS: Physical exam note that his temperature is 98.6, pulse is 65, respirations of 23 and BP is 136/91. SKIN: Warm and dry. HEENT: Head atraumatic, normocephalic. Eyes reactive to light. Ears, nose and throat seemed to be within normal limits. NECK: Supple. No JVD. No thyroid enlargement. No lymph nodes. HEART: Has regular rate and rhythm. Normal S1, S2. LUNGS: Reveal good breath sounds bilaterally. ABDOMEN: Soft, nontender. Normal bowel sounds. GENITALIA AND RECTAL: Deferred. MUSCULOSKELETAL: No joint deformities. EXTREMITIES: Reveal trace lower extremity edema. NEUROLOGICAL: He seemed to be grossly intact. LABORATORY DATA: As far as his laboratories are concerned, his white count is 10.8, hemoglobin is 12.2, hematocrit 34.5 with platelets of 201,000. The patient's sodium is 142, potassium 4.3, chloride 107, CO2 of 19, BUN of 18, creatinine of 1 and glucose of 399. IMPRESSION: As far as my impression, this patient has presented with diabetic ketoacidosis and history of severe depression. Has mild renal insufficiency with a history of hypertension and hyperlipidemia. There may be a component of sepsis with the increased white count along with metabolic acidosis. The patient has acute pancreatitis, increased troponins and possible myocardial infarction. PLAN: As far as our plan, we will continue to follow recommendations of the health systems analyst. The patient is on a coverage with insulin and we will follow his fingersticks closely. He will continue with aspirin, heparin and Lipitor and has been started on Levemir. He continues with his Lopressor. He is on meropenem and Protonix. Yahir Jones MD [facility] # [phone]
--- NOTE | 2018-05-13 09:17 | CP.PCM.PN ---
Subjective - Date & Time of Evaluation Date of Evaluation: 05/13/18 Time of Evaluation: 07:00 - Subjective Subjective: Stable in CCU. No CP or SOB. He feels much better. He made himself DNR/DNI yesterday. V/S stable. RSR PE: Lungs: clear Cor.: S1S2 Abd.: soft Ext.: no edema Neuro.: alert I/O; 1600/750 Labs noted. TSH NL. BC X2 NG at 3 days. Objective - Vital Signs/Intake and Output Vital Signs (last 24 hours): Temp Pulse Resp BP Pulse Ox 98.1 F 105 H 17 177/110 H 95 05/12/18 08:35 05/13/18 08:18 05/13/18 06:10 05/13/18 08:18 05/13/18 06:10 Intake and Output: 05/13/18 05/13/18 06:59 18:59 Intake Total 1600 Output Total 750 Balance 850 - Medications Medications: Current Medications Acetaminophen (Tylenol 325mg Tab) 650 mg PO Q6H PRN PRN Reason: Headache Last Admin: 05/12/18 11:22 Dose: 650 mg Aspirin (Ecotrin) 81 mg PO DAILY [facility] Last Admin: 05/12/18 09:38 Dose: 81 mg Atorvastatin Calcium (Lipitor) 40 mg PO DIN [facility] Last Admin: 05/11/18 17:14 Dose: Not Given Dextrose (Dextrose 50% Inj) 0 ml IV STAT PRN; Protocol PRN Reason: Hypoglycemia Protocol Hydralazine HCl (Apresoline) 10 mg IVP Q6H PRN PRN Reason: sbp >160 or DBP >100 Last Admin: 05/13/18 01:46 Dose: 10 mg Dextrose (Dextrose 5% In Water 1000 Ml) 1,000 mls @ 0 mls/hr IV .Q0M PRN; Protocol; Per Protocol PRN Reason: Hypoglycemia Protocol Potassium Chloride 20 meq/ (Sodium Chloride) 1,010 mls @ 75 mls/hr IV .[id number] [facility] Last Admin: 05/12/18 17:09 Dose: 75 mls/hr Insulin Detemir (Levemir) 30 unit SC HS [facility] Last Admin: 05/12/18 21:47 Dose: 30 units Insulin Human Lispro (Humalog Low) 0 units SC ACHS [facility] PRN Reason: Protocol Last Admin: 05/13/18 08:14 Dose: Not Given Insulin Human Lispro (Humalog) 10 units SC AC [facility] Last Admin: 05/13/18 08:17 Dose: 10 unit Metoprolol Tartrate (Lopressor) 25 mg PO BRKDIN [facility] Last Admin: 05/13/18 08:18 Dose: 25 mg Pantoprazole Sodium (Protonix Ec Tab) 40 mg PO 0600 [facility] Last Admin: 05/13/18 06:07 Dose: 40 mg - Labs Labs: 05/13/18 04:10 05/13/18 04:10 PT 16.6 SECONDS (9.4-12.5) H 05/09/18 23:50 INR 1.45 05/09/18 23:50 APTT 70.8 Seconds (25.1-36.5) H 05/13/18 04:10 Assessment and Plan - Assessment and Plan (Free Text) Assessment: DKA PAF, resolved + trops, probably due to DKA, metabolic derangements, doubt acute GA (Echo shows NL LV, No ECG changes or CP) Acute pancreatitis by elevated lipase HBP Bicuspid AV with mild/mod. Plan: D/C heparin drip Nuclear stress test once he is metabolically greg. Tel bed. I strongly advised him to reconsider the DNR/DNI designation. Suggest Palliative Care consultation. I think what he wants is a living will. Add ARB, Statin as per Dr. Fenton. OOB/PT As per Intensivists, Psychiatry, ID and Renal
--- NOTE | 2018-05-13 11:46 | CP.CCUPN ---
<Chaz Kate - Last Filed: 05/13/18 12:37> CCU Subjective - Physician Review Events Since Last Encounter (Free Text): 05/13/18 11:40 Patient seen and examined at bedside. No acute events overnight. No complaints at current time, is tolerating po diet. CCU Objective - Vital Signs / Intake & Output Vital Signs (Last 4 hours): Vital Signs Temp Pulse Resp BP Pulse Ox 05/13/18 10:14 98.4 F 05/13/18 10:00 79 14 145/85 95 05/13/18 09:37 78 15 132/71 96 05/13/18 09:00 85 22 96 05/13/18 08:18 105 H 177/110 H 05/13/18 08:01 84 15 177/100 H 100 05/13/18 08:00 87 20 99 Intake and Output (Last 8hrs): Intake & Output 05/12/18 05/13/18 05/13/18 22:59 06:59 14:59 Intake Total 1600 Output Total 750 Balance 850 Intake: IV 1150 Right Hand 900 Oral 450 Output: Urine 750 Urine, Voided 750 Emesis 0 Other: # Voids Urine, Voided 4 # Bowel Movements 2 - Physical Exam Head: Positive for: Atraumatic, Normocephalic Pupils: Positive for: PERRL Extroacular Muscles: Positive for: EOMI Conjunctiva: Positive for: Normal Mouth: Positive for: Dry, Drooling Neck: Positive for: Normal Range of Motion Respiratory/Chest: Positive for: Clear to Auscultation, Good Air Exchange. Negative for: Respiratory Distress, Accessory Muscle Use Cardiovascular: Positive for: Regular Rate and Rhythm, Normal S1, S2. Negative for: Murmurs Abdomen: Positive for: Tenderness. Negative for: Distention, Normal Bowel Sounds, Peritoneal Signs Back: Positive for: Normal Inspection Upper Extremity: Positive for: Normal Inspection. Negative for: Cyanosis, Edema Lower Extremity: Positive for: Normal Inspection. Negative for: Edema Neurological: Positive for: GCS=15, CN II-XII Intact Skin: Positive for: Warm, Dry, Normal Color. Negative for: Rashes Psychiatric: Positive for: Agitated, Lethargic, Other - Medications Active Medications: Active Medications Generic Name Dose Route Start Last Admin Trade Name Freq PRN Reason Stop Dose Admin Acetaminophen 650 mg 05/12/18 11:12 05/12/18 11:22 Tylenol 325mg Tab PO 650 mg Q6H PRN Administration Headache Aspirin 81 mg 05/11/18 10:00 05/13/18 09:37 Ecotrin PO 81 mg DAILY LINWOOD Administration Atorvastatin Calcium 40 mg 05/11/18 17:00 05/11/18 17:14 Lipitor PO Not Given DIN LINWOOD Dextrose 0 ml 05/10/18 02:49 Dextrose 50% Inj IV STAT PRN Hypoglycemia Protocol Protocol Hydralazine HCl 10 mg 05/13/18 01:35 05/13/18 01:46 Apresoline IVP 10 mg Q6H PRN Administration sbp >160 or DBP >100 Dextrose 1,000 mls @ 0 mls/hr 05/10/18 02:49 Dextrose 5% In Water 1000 Ml IV .Q0M PRN Hypoglycemia Protocol Protocol Per Protocol Insulin Detemir 30 unit 05/12/18 22:00 05/12/18 21:47 Levemir SC 30 units HS LINWOOD Administration Insulin Human Lispro 0 units 05/11/18 07:30 05/13/18 08:14 Humalog Low SC Not Given ACHS [facility] Protocol Insulin Human Lispro 10 units 05/12/18 11:30 05/13/18 08:17 Humalog SC 10 unit AC LINWOOD Administration Lisinopril 20 mg 05/13/18 11:30 Zestril PO DAILY [facility] Metoprolol Tartrate 50 mg 05/13/18 10:00 05/13/18 09:37 Lopressor PO 25 mg BRKDIN LINWOOD Administration Pantoprazole Sodium 40 mg 05/13/18 06:00 05/13/18 06:07 Protonix Ec Tab PO 40 mg 0600 LINWOOD Administration - Patient Studies Lab Studies: Lab Studies 05/13/18 05/13/18 05/13/18 Range/Units 07:08 04:10 04:10 WBC (4.5-11.0) 10^3/ul RBC (3.5-6.1) 10^6/uL Hgb (14.0-18.0) g/dL Hct (42.0-52.0) % MCV (80.0-105.0) fl MCH (25.0-35.0) pg MCHC (31.0-37.0) g/dl RDW (11.5-14.5) % Plt Count (120.0-450.0) 10^3/uL MPV (7.0-11.0) fl Gran % (50.0-68.0) % Lymph % (Auto) (22.0-35.0) % [place] % (Auto) (1.0-6.0) % Eos % (Auto) (1.5-5.0) % Baso % (Auto) (0.0-3.0) % Gran # (1.4-6.5) Lymph # (Auto) (1.2-3.4) [place] # (Auto) (0.1-0.6) Eos # (Auto) (0.0-0.7) Baso # (Auto) (0.0-2.0) K/mm3 APTT 70.8 H (25.1-36.5) Seconds Sodium (132-148) mmol/L Potassium (3.6-5.0) mmol/L Chloride (98-107) mmol/L Carbon Dioxide (21-33) mmol/L Anion Gap (10-20) BUN (7-21) mg/dL Creatinine (0.8-1.5) mg/dl Est GFR ( Amer) Est GFR (Non-Af Amer) POC Glucose (mg/dL) 69 (65-110) mg/dL Random Glucose (70-110) mg/dL Calcium (8.4-10.5) mg/dL Phosphorus (2.5-4.5) mg/dL Magnesium (1.7-2.2) mg/dL Total Bilirubin (0.2-1.3) mg/dL AST (17-59) U/L ALT (7-56) U/L Alkaline Phosphatase (38-126) U/L Total Protein (5.8-8.3) g/dL Albumin (3.0-4.8) g/dL Globulin gm/dL Albumin/Globulin Ratio (1.1-1.8) Free T4 1.39 (0.78-2.19) ng/dL TSH 3rd Generation 1.69 (0.46-4.68) mIU/mL 05/13/18 05/13/18 05/12/18 Range/Units 04:10 04:10 21:39 WBC 6.2 D (4.5-11.0) 10^3/ul RBC 4.57 (3.5-6.1) 10^6/uL Hgb 13.9 L (14.0-18.0) g/dL Hct 37.9 L (42.0-52.0) % MCV 82.9 (80.0-105.0) fl MCH 30.4 (25.0-35.0) pg MCHC 36.7 (31.0-37.0) g/dl RDW 12.2 (11.5-14.5) % Plt Count 200 (120.0-450.0) 10^3/uL MPV 9.6 (7.0-11.0) fl Gran % 60.1 (50.0-68.0) % Lymph % (Auto) 32.2 (22.0-35.0) % [place] % (Auto) 7.0 H (1.0-6.0) % Eos % (Auto) 0.5 L (1.5-5.0) % Baso % (Auto) 0.2 (0.0-3.0) % Gran # 3.72 (1.4-6.5) Lymph # (Auto) 2.0 (1.2-3.4) [place] # (Auto) 0.4 (0.1-0.6) Eos # (Auto) 0.0 (0.0-0.7) Baso # (Auto) 0.01 (0.0-2.0) K/mm3 APTT (25.1-36.5) Seconds Sodium 142 (132-148) mmol/L Potassium 3.8 (3.6-5.0) mmol/L Chloride 105 (98-107) mmol/L Carbon Dioxide 27 (21-33) mmol/L Anion Gap 14 (10-20) BUN 18 (7-21) mg/dL Creatinine 0.8 (0.8-1.5) mg/dl Est GFR ( Amer) > 60 Est GFR (Non-Af Amer) > 60 POC Glucose (mg/dL) 413 H* (65-110) mg/dL Random Glucose 184 H (70-110) mg/dL Calcium 9.3 (8.4-10.5) mg/dL Phosphorus 2.4 L (2.5-4.5) mg/dL Magnesium 2.2 (1.7-2.2) mg/dL Total Bilirubin 1.1 (0.2-1.3) mg/dL AST 33 (17-59) U/L ALT 56 (7-56) U/L Alkaline Phosphatase 83 (38-126) U/L Total Protein 6.6 (5.8-8.3) g/dL Albumin 3.9 (3.0-4.8) g/dL Globulin 2.6 gm/dL Albumin/Globulin Ratio 1.5 (1.1-1.8) Free T4 (0.78-2.19) ng/dL TSH 3rd Generation (0.46-4.68) mIU/mL 05/12/18 05/12/18 05/12/18 Range/Units 18:53 16:20 10:56 WBC (4.5-11.0) 10^3/ul RBC (3.5-6.1) 10^6/uL Hgb (14.0-18.0) g/dL Hct (42.0-52.0) % MCV (80.0-105.0) fl MCH (25.0-35.0) pg MCHC (31.0-37.0) g/dl RDW (11.5-14.5) % Plt Count (120.0-450.0) 10^3/uL MPV (7.0-11.0) fl Gran % (50.0-68.0) % Lymph % (Auto) (22.0-35.0) % [place] % (Auto) (1.0-6.0) % Eos % (Auto) (1.5-5.0) % Baso % (Auto) (0.0-3.0) % Gran # (1.4-6.5) Lymph # (Auto) (1.2-3.4) [place] # (Auto) (0.1-0.6) Eos # (Auto) (0.0-0.7) Baso # (Auto) (0.0-2.0) K/mm3 APTT 41.1 H (25.1-36.5) Seconds Sodium (132-148) mmol/L Potassium (3.6-5.0) mmol/L Chloride (98-107) mmol/L Carbon Dioxide (21-33) mmol/L Anion Gap (10-20) BUN (7-21) mg/dL Creatinine (0.8-1.5) mg/dl Est GFR ( Amer) Est GFR (Non-Af Amer) POC Glucose (mg/dL) 268 H 263 H (65-110) mg/dL Random Glucose (70-110) mg/dL Calcium (8.4-10.5) mg/dL Phosphorus (2.5-4.5) mg/dL Magnesium (1.7-2.2) mg/dL Total Bilirubin (0.2-1.3) mg/dL AST (17-59) U/L ALT (7-56) U/L Alkaline Phosphatase (38-126) U/L Total Protein (5.8-8.3) g/dL Albumin (3.0-4.8) g/dL Globulin gm/dL Albumin/Globulin Ratio (1.1-1.8) Free T4 (0.78-2.19) ng/dL TSH 3rd Generation (0.46-4.68) mIU/mL 05/12/18 05/12/18 05/12/18 Range/Units 07:52 06:05 05:51 WBC (4.5-11.0) 10^3/ul RBC (3.5-6.1) 10^6/uL Hgb (14.0-18.0) g/dL Hct (42.0-52.0) % MCV (80.0-105.0) fl MCH (25.0-35.0) pg MCHC (31.0-37.0) g/dl RDW (11.5-14.5) % Plt Count (120.0-450.0) 10^3/uL MPV (7.0-11.0) fl Gran % (50.0-68.0) % Lymph % (Auto) (22.0-35.0) % [place] % (Auto) (1.0-6.0) % Eos % (Auto) (1.5-5.0) % Baso % (Auto) (0.0-3.0) % Gran # (1.4-6.5) Lymph # (Auto) (1.2-3.4) [place] # (Auto) (0.1-0.6) Eos # (Auto) (0.0-0.7) Baso # (Auto) (0.0-2.0) K/mm3 APTT (25.1-36.5) Seconds Sodium (132-148) mmol/L Potassium (3.6-5.0) mmol/L Chloride (98-107) mmol/L Carbon Dioxide (21-33) mmol/L Anion Gap (10-20) BUN (7-21) mg/dL Creatinine (0.8-1.5) mg/dl Est GFR ( Amer) Est GFR (Non-Af Amer) POC Glucose (mg/dL) > 500 H* 410 H* 404 H* (65-110) mg/dL Random Glucose (70-110) mg/dL Calcium (8.4-10.5) mg/dL Phosphorus (2.5-4.5) mg/dL Magnesium (1.7-2.2) mg/dL Total Bilirubin (0.2-1.3) mg/dL AST (17-59) U/L ALT (7-56) U/L Alkaline Phosphatase (38-126) U/L Total Protein (5.8-8.3) g/dL Albumin (3.0-4.8) g/dL Globulin gm/dL Albumin/Globulin Ratio (1.1-1.8) Free T4 (0.78-2.19) ng/dL TSH 3rd Generation (0.46-4.68) mIU/mL 05/12/18 05/11/18 05/11/18 Range/Units 01:23 20:06 17:17 WBC (4.5-11.0) 10^3/ul RBC (3.5-6.1) 10^6/uL Hgb (14.0-18.0) g/dL Hct (42.0-52.0) % MCV (80.0-105.0) fl MCH (25.0-35.0) pg MCHC (31.0-37.0) g/dl RDW (11.5-14.5) % Plt Count (120.0-450.0) 10^3/uL MPV (7.0-11.0) fl Gran % (50.0-68.0) % Lymph % (Auto) (22.0-35.0) % [place] % (Auto) (1.0-6.0) % Eos % (Auto) (1.5-5.0) % Baso % (Auto) (0.0-3.0) % Gran # (1.4-6.5) Lymph # (Auto) (1.2-3.4) [place] # (Auto) (0.1-0.6) Eos # (Auto) (0.0-0.7) Baso # (Auto) (0.0-2.0) K/mm3 APTT (25.1-36.5) Seconds Sodium (132-148) mmol/L Potassium (3.6-5.0) mmol/L Chloride (98-107) mmol/L Carbon Dioxide (21-33) mmol/L Anion Gap (10-20) BUN (7-21) mg/dL Creatinine (0.8-1.5) mg/dl Est GFR ( Amer) Est GFR (Non-Af Amer) POC Glucose (mg/dL) 267 H 76 187 H (65-110) mg/dL Random Glucose (70-110) mg/dL Calcium (8.4-10.5) mg/dL Phosphorus (2.5-4.5) mg/dL Magnesium (1.7-2.2) mg/dL Total Bilirubin (0.2-1.3) mg/dL AST (17-59) U/L ALT (7-56) U/L Alkaline Phosphatase (38-126) U/L Total Protein (5.8-8.3) g/dL Albumin (3.0-4.8) g/dL Globulin gm/dL Albumin/Globulin Ratio (1.1-1.8) Free T4 (0.78-2.19) ng/dL TSH 3rd Generation (0.46-4.68) mIU/mL 05/11/18 05/11/18 05/11/18 Range/Units 12:00 08:04 06:49 WBC (4.5-11.0) 10^3/ul RBC (3.5-6.1) 10^6/uL Hgb (14.0-18.0) g/dL Hct (42.0-52.0) % MCV (80.0-105.0) fl MCH (25.0-35.0) pg MCHC (31.0-37.0) g/dl RDW (11.5-14.5) % Plt Count (120.0-450.0) 10^3/uL MPV (7.0-11.0) fl Gran % (50.0-68.0) % Lymph % (Auto) (22.0-35.0) % [place] % (Auto) (1.0-6.0) % Eos % (Auto) (1.5-5.0) % Baso % (Auto) (0.0-3.0) % Gran # (1.4-6.5) Lymph # (Auto) (1.2-3.4) [place] # (Auto) (0.1-0.6) Eos # (Auto) (0.0-0.7) Baso # (Auto) (0.0-2.0) K/mm3 APTT (25.1-36.5) Seconds Sodium (132-148) mmol/L Potassium (3.6-5.0) mmol/L Chloride (98-107) mmol/L Carbon Dioxide (21-33) mmol/L Anion Gap (10-20) BUN (7-21) mg/dL Creatinine (0.8-1.5) mg/dl Est GFR ( Amer) Est GFR (Non-Af Amer) POC Glucose (mg/dL) 192 H 245 H 228 H (65-110) mg/dL Random Glucose (70-110) mg/dL Calcium (8.4-10.5) mg/dL Phosphorus (2.5-4.5) mg/dL Magnesium (1.7-2.2) mg/dL Total Bilirubin (0.2-1.3) mg/dL AST (17-59) U/L ALT (7-56) U/L Alkaline Phosphatase (38-126) U/L Total Protein (5.8-8.3) g/dL Albumin (3.0-4.8) g/dL Globulin gm/dL Albumin/Globulin Ratio (1.1-1.8) Free T4 (0.78-2.19) ng/dL TSH 3rd Generation (0.46-4.68) mIU/mL 05/11/18 05/10/18 Range/Units 01:57 21:48 WBC (4.5-11.0) 10^3/ul RBC (3.5-6.1) 10^6/uL Hgb (14.0-18.0) g/dL Hct (42.0-52.0) % MCV (80.0-105.0) fl MCH (25.0-35.0) pg MCHC (31.0-37.0) g/dl RDW (11.5-14.5) % Plt Count (120.0-450.0) 10^3/uL MPV (7.0-11.0) fl Gran % (50.0-68.0) % Lymph % (Auto) (22.0-35.0) % [place] % (Auto) (1.0-6.0) % Eos % (Auto) (1.5-5.0) % Baso % (Auto) (0.0-3.0) % Gran # (1.4-6.5) Lymph # (Auto) (1.2-3.4) [place] # (Auto) (0.1-0.6) Eos # (Auto) (0.0-0.7) Baso # (Auto) (0.0-2.0) K/mm3 APTT (25.1-36.5) Seconds Sodium (132-148) mmol/L Potassium (3.6-5.0) mmol/L Chloride (98-107) mmol/L Carbon Dioxide (21-33) mmol/L Anion Gap (10-20) BUN (7-21) mg/dL Creatinine (0.8-1.5) mg/dl Est GFR ( Amer) Est GFR (Non-Af Amer) POC Glucose (mg/dL) 231 H 219 H (65-110) mg/dL Random Glucose (70-110) mg/dL Calcium (8.4-10.5) mg/dL Phosphorus (2.5-4.5) mg/dL Magnesium (1.7-2.2) mg/dL Total Bilirubin (0.2-1.3) mg/dL AST (17-59) U/L ALT (7-56) U/L Alkaline Phosphatase (38-126) U/L Total Protein (5.8-8.3) g/dL Albumin (3.0-4.8) g/dL Globulin gm/dL Albumin/Globulin Ratio (1.1-1.8) Free T4 (0.78-2.19) ng/dL TSH 3rd Generation (0.46-4.68) mIU/mL Laboratory Results - last 24 hr 05/10/18 05/11/18 05/11/18 21:48 01:57 06:49 WBC RBC Hgb Hct MCV MCH MCHC RDW Plt Count MPV Gran % Lymph % (Auto) [place] % (Auto) Eos % (Auto) Baso % (Auto) Gran # Lymph # (Auto) [place] # (Auto) Eos # (Auto) Baso # (Auto) APTT Sodium Potassium Chloride Carbon Dioxide Anion Gap BUN Creatinine Est GFR ( Amer) Est GFR (Non-Af Amer) POC Glucose (mg/dL) 219 H 231 H 228 H Random Glucose Calcium Phosphorus Magnesium Total Bilirubin AST ALT Alkaline Phosphatase Total Protein Albumin Globulin Albumin/Globulin Ratio Free T4 TSH 3rd Generation 05/11/18 05/11/18 05/11/18 08:04 12:00 17:17 WBC RBC Hgb Hct MCV MCH MCHC RDW Plt Count MPV Gran % Lymph % (Auto) [place] % (Auto) Eos % (Auto) Baso % (Auto) Gran # Lymph # (Auto) [place] # (Auto) Eos # (Auto) Baso # (Auto) APTT Sodium Potassium Chloride Carbon Dioxide Anion Gap BUN Creatinine Est GFR ( Amer) Est GFR (Non-Af Amer) POC Glucose (mg/dL) 245 H 192 H 187 H Random Glucose Calcium Phosphorus Magnesium Total Bilirubin AST ALT Alkaline Phosphatase Total Protein Albumin Globulin Albumin/Globulin Ratio Free T4 TSH 3rd Generation 05/11/18 05/12/18 05/12/18 20:06 01:23 05:51 WBC RBC Hgb Hct MCV MCH MCHC RDW Plt Count MPV Gran % Lymph % (Auto) [place] % (Auto) Eos % (Auto) Baso % (Auto) Gran # Lymph # (Auto) [place] # (Auto) Eos # (Auto) Baso # (Auto) APTT Sodium Potassium Chloride Carbon Dioxide Anion Gap BUN Creatinine Est GFR ( Amer) Est GFR (Non-Af Amer) POC Glucose (mg/dL) 76 267 H 404 H* Random Glucose Calcium Phosphorus Magnesium Total Bilirubin AST ALT Alkaline Phosphatase Total Protein Albumin Globulin Albumin/Globulin Ratio Free T4 TSH 3rd Generation 05/12/18 05/12/18 05/12/18 06:05 07:52 10:56 WBC RBC Hgb Hct MCV MCH MCHC RDW Plt Count MPV Gran % Lymph % (Auto) [place] % (Auto) Eos % (Auto) Baso % (Auto) Gran # Lymph # (Auto) [place] # (Auto) Eos # (Auto) Baso # (Auto) APTT Sodium Potassium Chloride Carbon Dioxide Anion Gap BUN Creatinine Est GFR ( Amer) Est GFR (Non-Af Amer) POC Glucose (mg/dL) 410 H* > 500 H* 263 H Random Glucose Calcium Phosphorus Magnesium Total Bilirubin AST ALT Alkaline Phosphatase Total Protein Albumin Globulin Albumin/Globulin Ratio Free T4 TSH 3rd Generation 05/12/18 05/12/18 05/12/18 16:20 18:53 21:39 WBC RBC Hgb Hct MCV MCH MCHC RDW Plt Count MPV Gran % Lymph % (Auto) [place] % (Auto) Eos % (Auto) Baso % (Auto) Gran # Lymph # (Auto) [place] # (Auto) Eos # (Auto) Baso # (Auto) APTT 41.1 H Sodium Potassium Chloride Carbon Dioxide Anion Gap BUN Creatinine Est GFR ( Amer) Est GFR (Non-Af Amer) POC Glucose (mg/dL) 268 H 413 H* Random Glucose Calcium Phosphorus Magnesium Total Bilirubin AST ALT Alkaline Phosphatase Total Protein Albumin Globulin Albumin/Globulin Ratio Free T4 TSH 3rd Generation 05/13/18 05/13/18 05/13/18 04:10 04:10 04:10 WBC 6.2 D RBC 4.57 Hgb 13.9 L Hct 37.9 L MCV 82.9 MCH 30.4 MCHC 36.7 RDW 12.2 Plt Count 200 MPV 9.6 Gran % 60.1 Lymph % (Auto) 32.2 [place] % (Auto) 7.0 H Eos % (Auto) 0.5 L Baso % (Auto) 0.2 Gran # 3.72 Lymph # (Auto) 2.0 [place] # (Auto) 0.4 Eos # (Auto) 0.0 Baso # (Auto) 0.01 APTT Sodium 142 Potassium 3.8 Chloride 105 Carbon Dioxide 27 Anion Gap 14 BUN 18 Creatinine 0.8 Est GFR ( Amer) > 60 Est GFR (Non-Af Amer) > 60 POC Glucose (mg/dL) Random Glucose 184 H Calcium 9.3 Phosphorus 2.4 L Magnesium 2.2 Total Bilirubin 1.1 AST 33 ALT 56 Alkaline Phosphatase 83 Total Protein 6.6 Albumin 3.9 Globulin 2.6 Albumin/Globulin Ratio 1.5 Free T4 1.39 TSH 3rd Generation 1.69 05/13/18 05/13/18 04:10 07:08 WBC RBC Hgb Hct MCV MCH MCHC RDW Plt Count MPV Gran % Lymph % (Auto) [place] % (Auto) Eos % (Auto) Baso % (Auto) Gran # Lymph # (Auto) [place] # (Auto) Eos # (Auto) Baso # (Auto) APTT 70.8 H Sodium Potassium Chloride Carbon Dioxide Anion Gap BUN Creatinine Est GFR ( Amer) Est GFR (Non-Af Amer) POC Glucose (mg/dL) 69 Random Glucose Calcium Phosphorus Magnesium Total Bilirubin AST ALT Alkaline Phosphatase Total Protein Albumin Globulin Albumin/Globulin Ratio Free T4 TSH 3rd Generation Fingerstick Blood Sugar Results: 69 Critical Care Progress Note - Nutrition Nutrition: Nutrition Category Date Time Status Consistent Carbohydrate [DIET] Diets 05/12/18 Lunch Ordered Assessment/Plan - Assessment and Plan (Free Text) Assessment: 58 year old male under ICU management for DKA, now gap closed and insulin drip off. Possible Acute NSTEMI - resolved Acute MARCELLE - resolved Acute Leukocytosis - resolved Acute Pancreatitis, likely 2/2 alcohol Hx IDDM Hx HLD on lipitor Hx HTN on valsartan Plan: - Patient can continue with insulin regimen per Dr. Fenton; cross coverage with RISS Low - Patient heparin drip can be discontinued; continue with ASA, Lipitor (on hold right now), Lopressor - Monitor BP before starting ALANNA-I (for cardiac remodeling protection) - Continue with normothermia, sats > 92%, MAP > 65, euvolemia, euglycemia - Continue GI PPX with protonix and Start DVT PPX with heparin SC - Continue with psychiatric evaluation regarding patient's suicidal ideations DISPO: Patient stable for transfer to telemetry <Quang Rubio - Last Filed: 05/13/18 12:54> CCU Objective - Vital Signs / Intake & Output Vital Signs (Last 4 hours): Vital Signs Temp Pulse Resp BP Pulse Ox 05/13/18 11:59 80 155/89 H 05/13/18 10:14 98.4 F 05/13/18 10:00 79 14 145/85 95 05/13/18 09:37 78 15 132/71 96 05/13/18 09:00 85 22 96 Intake and Output (Last 8hrs): Intake & Output 05/12/18 05/13/18 05/13/18 22:59 06:59 14:59 Intake Total 1600 Output Total 750 Balance 850 Intake: IV 1150 Right Hand 900 Oral 450 Output: Urine 750 Urine, Voided 750 Emesis 0 Other: # Voids Urine, Voided 4 # Bowel Movements 2 - Medications Active Medications: Active Medications Generic Name Dose Route Start Last Admin Trade Name Freq PRN Reason Stop Dose Admin Acetaminophen 650 mg 05/12/18 11:12 05/12/18 11:22 Tylenol 325mg Tab PO 650 mg Q6H PRN Administration Headache Aspirin 81 mg 05/11/18 10:00 05/13/18 09:37 Ecotrin PO 81 mg DAILY LINWOOD Administration Atorvastatin Calcium 40 mg 05/11/18 17:00 05/11/18 17:14 Lipitor PO Not Given DIN LINWOOD Dextrose 0 ml 05/10/18 02:49 Dextrose 50% Inj IV STAT PRN Hypoglycemia Protocol Protocol Hydralazine HCl 10 mg 05/13/18 01:35 05/13/18 01:46 Apresoline IVP 10 mg Q6H PRN Administration sbp >160 or DBP >100 Dextrose 1,000 mls @ 0 mls/hr 05/10/18 02:49 Dextrose 5% In Water 1000 Ml IV .Q0M PRN Hypoglycemia Protocol Protocol Per Protocol Insulin Detemir 30 unit 05/12/18 22:00 05/12/18 21:47 Levemir SC 30 units HS LINWOOD Administration Insulin Human Lispro 0 units 05/11/18 07:30 05/13/18 11:58 Humalog Low SC Not Given ACHS LINWOOD Protocol Insulin Human Lispro 10 units 05/12/18 11:30 05/13/18 11:57 Humalog SC Not Given AC LINWOOD Lisinopril 20 mg 05/13/18 11:30 05/13/18 11:59 Zestril PO 20 mg DAILY LINWOOD Administration Metoprolol Tartrate 50 mg 05/13/18 10:00 05/13/18 09:37 Lopressor PO 25 mg BRKDIN LINWOOD Administration Pantoprazole Sodium 40 mg 05/13/18 06:00 05/13/18 06:07 Protonix Ec Tab PO 40 mg 0600 LINWOOD Administration - Patient Studies Lab Studies: Lab Studies 05/13/18 05/13/18 05/13/18 Range/Units 12:07 11:31 07:08 WBC (4.5-11.0) 10^3/ul RBC (3.5-6.1) 10^6/uL Hgb (14.0-18.0) g/dL Hct (42.0-52.0) % MCV (80.0-105.0) fl MCH (25.0-35.0) pg MCHC (31.0-37.0) g/dl RDW (11.5-14.5) % Plt Count (120.0-450.0) 10^3/uL MPV (7.0-11.0) fl Gran % (50.0-68.0) % Lymph % (Auto) (22.0-35.0) % [place] % (Auto) (1.0-6.0) % Eos % (Auto) (1.5-5.0) % Baso % (Auto) (0.0-3.0) % Gran # (1.4-6.5) Lymph # (Auto) (1.2-3.4) [place] # (Auto) (0.1-0.6) Eos # (Auto) (0.0-0.7) Baso # (Auto) (0.0-2.0) K/mm3 APTT (25.1-36.5) Seconds Sodium (132-148) mmol/L Potassium (3.6-5.0) mmol/L Chloride (98-107) mmol/L Carbon Dioxide (21-33) mmol/L Anion Gap (10-20) BUN (7-21) mg/dL Creatinine (0.8-1.5) mg/dl Est GFR ( Amer) Est GFR (Non-Af Amer) POC Glucose (mg/dL) 105 57 L 69 (65-110) mg/dL Random Glucose (70-110) mg/dL Calcium (8.4-10.5) mg/dL Phosphorus (2.5-4.5) mg/dL Magnesium (1.7-2.2) mg/dL Total Bilirubin (0.2-1.3) mg/dL AST (17-59) U/L ALT (7-56) U/L Alkaline Phosphatase (38-126) U/L Total Protein (5.8-8.3) g/dL Albumin (3.0-4.8) g/dL Globulin gm/dL Albumin/Globulin Ratio (1.1-1.8) Free T4 (0.78-2.19) ng/dL TSH 3rd Generation (0.46-4.68) mIU/mL 05/13/18 05/13/18 05/13/18 Range/Units 04:10 04:10 04:10 WBC (4.5-11.0) 10^3/ul RBC (3.5-6.1) 10^6/uL Hgb (14.0-18.0) g/dL Hct (42.0-52.0) % MCV (80.0-105.0) fl MCH (25.0-35.0) pg MCHC (31.0-37.0) g/dl RDW (11.5-14.5) % Plt Count (120.0-450.0) 10^3/uL MPV (7.0-11.0) fl Gran % (50.0-68.0) % Lymph % (Auto) (22.0-35.0) % [place] % (Auto) (1.0-6.0) % Eos % (Auto) (1.5-5.0) % Baso % (Auto) (0.0-3.0) % Gran # (1.4-6.5) Lymph # (Auto) (1.2-3.4) [place] # (Auto) (0.1-0.6) Eos # (Auto) (0.0-0.7) Baso # (Auto) (0.0-2.0) K/mm3 APTT 70.8 H (25.1-36.5) Seconds Sodium 142 (132-148) mmol/L Potassium 3.8 (3.6-5.0) mmol/L Chloride 105 (98-107) mmol/L Carbon Dioxide 27 (21-33) mmol/L Anion Gap 14 (10-20) BUN 18 (7-21) mg/dL Creatinine 0.8 (0.8-1.5) mg/dl Est GFR ( Amer) > 60 Est GFR (Non-Af Amer) > 60 POC Glucose (mg/dL) (65-110) mg/dL Random Glucose 184 H (70-110) mg/dL Calcium 9.3 (8.4-10.5) mg/dL Phosphorus 2.4 L (2.5-4.5) mg/dL Magnesium 2.2 (1.7-2.2) mg/dL Total Bilirubin 1.1 (0.2-1.3) mg/dL AST 33 (17-59) U/L ALT 56 (7-56) U/L Alkaline Phosphatase 83 (38-126) U/L Total Protein 6.6 (5.8-8.3) g/dL Albumin 3.9 (3.0-4.8) g/dL Globulin 2.6 gm/dL Albumin/Globulin Ratio 1.5 (1.1-1.8) Free T4 1.39 (0.78-2.19) ng/dL TSH 3rd Generation 1.69 (0.46-4.68) mIU/mL 05/13/18 05/12/18 05/12/18 Range/Units 04:10 21:39 18:53 WBC 6.2 D (4.5-11.0) 10^3/ul RBC 4.57 (3.5-6.1) 10^6/uL Hgb 13.9 L (14.0-18.0) g/dL Hct 37.9 L (42.0-52.0) % MCV 82.9 (80.0-105.0) fl MCH 30.4 (25.0-35.0) pg MCHC 36.7 (31.0-37.0) g/dl RDW 12.2 (11.5-14.5) % Plt Count 200 (120.0-450.0) 10^3/uL MPV 9.6 (7.0-11.0) fl Gran % 60.1 (50.0-68.0) % Lymph % (Auto) 32.2 (22.0-35.0) % [place] % (Auto) 7.0 H (1.0-6.0) % Eos % (Auto) 0.5 L (1.5-5.0) % Baso % (Auto) 0.2 (0.0-3.0) % Gran # 3.72 (1.4-6.5) Lymph # (Auto) 2.0 (1.2-3.4) [place] # (Auto) 0.4 (0.1-0.6) Eos # (Auto) 0.0 (0.0-0.7) Baso # (Auto) 0.01 (0.0-2.0) K/mm3 APTT 41.1 H (25.1-36.5) Seconds Sodium (132-148) mmol/L Potassium (3.6-5.0) mmol/L Chloride (98-107) mmol/L Carbon Dioxide (21-33) mmol/L Anion Gap (10-20) BUN (7-21) mg/dL Creatinine (0.8-1.5) mg/dl Est GFR ( Amer) Est GFR (Non-Af Amer) POC Glucose (mg/dL) 413 H* (65-110) mg/dL Random Glucose (70-110) mg/dL Calcium (8.4-10.5) mg/dL Phosphorus (2.5-4.5) mg/dL Magnesium (1.7-2.2) mg/dL Total Bilirubin (0.2-1.3) mg/dL AST (17-59) U/L ALT (7-56) U/L Alkaline Phosphatase (38-126) U/L Total Protein (5.8-8.3) g/dL Albumin (3.0-4.8) g/dL Globulin gm/dL Albumin/Globulin Ratio (1.1-1.8) Free T4 (0.78-2.19) ng/dL TSH 3rd Generation (0.46-4.68) mIU/mL 05/12/18 05/12/18 05/12/18 Range/Units 16:20 10:56 07:52 WBC (4.5-11.0) 10^3/ul RBC (3.5-6.1) 10^6/uL Hgb (14.0-18.0) g/dL Hct (42.0-52.0) % MCV (80.0-105.0) fl MCH (25.0-35.0) pg MCHC (31.0-37.0) g/dl RDW (11.5-14.5) % Plt Count (120.0-450.0) 10^3/uL MPV (7.0-11.0) fl Gran % (50.0-68.0) % Lymph % (Auto) (22.0-35.0) % [place] % (Auto) (1.0-6.0) % Eos % (Auto) (1.5-5.0) % Baso % (Auto) (0.0-3.0) % Gran # (1.4-6.5) Lymph # (Auto) (1.2-3.4) [place] # (Auto) (0.1-0.6) Eos # (Auto) (0.0-0.7) Baso # (Auto) (0.0-2.0) K/mm3 APTT (25.1-36.5) Seconds Sodium (132-148) mmol/L Potassium (3.6-5.0) mmol/L Chloride (98-107) mmol/L Carbon Dioxide (21-33) mmol/L Anion Gap (10-20) BUN (7-21) mg/dL Creatinine (0.8-1.5) mg/dl Est GFR ( Amer) Est GFR (Non-Af Amer) POC Glucose (mg/dL) 268 H 263 H > 500 H* (65-110) mg/dL Random Glucose (70-110) mg/dL Calcium (8.4-10.5) mg/dL Phosphorus (2.5-4.5) mg/dL Magnesium (1.7-2.2) mg/dL Total Bilirubin (0.2-1.3) mg/dL AST (17-59) U/L ALT (7-56) U/L Alkaline Phosphatase (38-126) U/L Total Protein (5.8-8.3) g/dL Albumin (3.0-4.8) g/dL Globulin gm/dL Albumin/Globulin Ratio (1.1-1.8) Free T4 (0.78-2.19) ng/dL TSH 3rd Generation (0.46-4.68) mIU/mL 05/12/18 05/12/18 05/12/18 Range/Units 06:05 05:51 01:23 WBC (4.5-11.0) 10^3/ul RBC (3.5-6.1) 10^6/uL Hgb (14.0-18.0) g/dL Hct (42.0-52.0) % MCV (80.0-105.0) fl MCH (25.0-35.0) pg MCHC (31.0-37.0) g/dl RDW (11.5-14.5) % Plt Count (120.0-450.0) 10^3/uL MPV (7.0-11.0) fl Gran % (50.0-68.0) % Lymph % (Auto) (22.0-35.0) % [place] % (Auto) (1.0-6.0) % Eos % (Auto) (1.5-5.0) % Baso % (Auto) (0.0-3.0) % Gran # (1.4-6.5) Lymph # (Auto) (1.2-3.4) [place] # (Auto) (0.1-0.6) Eos # (Auto) (0.0-0.7) Baso # (Auto) (0.0-2.0) K/mm3 APTT (25.1-36.5) Seconds Sodium (132-148) mmol/L Potassium (3.6-5.0) mmol/L Chloride (98-107) mmol/L Carbon Dioxide (21-33) mmol/L Anion Gap (10-20) BUN (7-21) mg/dL Creatinine (0.8-1.5) mg/dl Est GFR ( Amer) Est GFR (Non-Af Amer) POC Glucose (mg/dL) 410 H* 404 H* 267 H (65-110) mg/dL Random Glucose (70-110) mg/dL Calcium (8.4-10.5) mg/dL Phosphorus (2.5-4.5) mg/dL Magnesium (1.7-2.2) mg/dL Total Bilirubin (0.2-1.3) mg/dL AST (17-59) U/L ALT (7-56) U/L Alkaline Phosphatase (38-126) U/L Total Protein (5.8-8.3) g/dL Albumin (3.0-4.8) g/dL Globulin gm/dL Albumin/Globulin Ratio (1.1-1.8) Free T4 (0.78-2.19) ng/dL TSH 3rd Generation (0.46-4.68) mIU/mL 05/11/18 05/11/18 05/11/18 Range/Units 20:06 17:17 12:00 WBC (4.5-11.0) 10^3/ul RBC (3.5-6.1) 10^6/uL Hgb (14.0-18.0) g/dL Hct (42.0-52.0) % MCV (80.0-105.0) fl MCH (25.0-35.0) pg MCHC (31.0-37.0) g/dl RDW (11.5-14.5) % Plt Count (120.0-450.0) 10^3/uL MPV (7.0-11.0) fl Gran % (50.0-68.0) % Lymph % (Auto) (22.0-35.0) % [place] % (Auto) (1.0-6.0) % Eos % (Auto) (1.5-5.0) % Baso % (Auto) (0.0-3.0) % Gran # (1.4-6.5) Lymph # (Auto) (1.2-3.4) [place] # (Auto) (0.1-0.6) Eos # (Auto) (0.0-0.7) Baso # (Auto) (0.0-2.0) K/mm3 APTT (25.1-36.5) Seconds Sodium (132-148) mmol/L Potassium (3.6-5.0) mmol/L Chloride (98-107) mmol/L Carbon Dioxide (21-33) mmol/L Anion Gap (10-20) BUN (7-21) mg/dL Creatinine (0.8-1.5) mg/dl Est GFR ( Amer) Est GFR (Non-Af Amer) POC Glucose (mg/dL) 76 187 H 192 H (65-110) mg/dL Random Glucose (70-110) mg/dL Calcium (8.4-10.5) mg/dL Phosphorus (2.5-4.5) mg/dL Magnesium (1.7-2.2) mg/dL Total Bilirubin (0.2-1.3) mg/dL AST (17-59) U/L ALT (7-56) U/L Alkaline Phosphatase (38-126) U/L Total Protein (5.8-8.3) g/dL Albumin (3.0-4.8) g/dL Globulin gm/dL Albumin/Globulin Ratio (1.1-1.8) Free T4 (0.78-2.19) ng/dL TSH 3rd Generation (0.46-4.68) mIU/mL 05/11/18 05/11/18 05/11/18 Range/Units 08:04 06:49 01:57 WBC (4.5-11.0) 10^3/ul RBC (3.5-6.1) 10^6/uL Hgb (14.0-18.0) g/dL Hct (42.0-52.0) % MCV (80.0-105.0) fl MCH (25.0-35.0) pg MCHC (31.0-37.0) g/dl RDW (11.5-14.5) % Plt Count (120.0-450.0) 10^3/uL MPV (7.0-11.0) fl Gran % (50.0-68.0) % Lymph % (Auto) (22.0-35.0) % [place] % (Auto) (1.0-6.0) % Eos % (Auto) (1.5-5.0) % Baso % (Auto) (0.0-3.0) % Gran # (1.4-6.5) Lymph # (Auto) (1.2-3.4) [place] # (Auto) (0.1-0.6) Eos # (Auto) (0.0-0.7) Baso # (Auto) (0.0-2.0) K/mm3 APTT (25.1-36.5) Seconds Sodium (132-148) mmol/L Potassium (3.6-5.0) mmol/L Chloride (98-107) mmol/L Carbon Dioxide (21-33) mmol/L Anion Gap (10-20) BUN (7-21) mg/dL Creatinine (0.8-1.5) mg/dl Est GFR ( Amer) Est GFR (Non-Af Amer) POC Glucose (mg/dL) 245 H 228 H 231 H (65-110) mg/dL Random Glucose (70-110) mg/dL Calcium (8.4-10.5) mg/dL Phosphorus (2.5-4.5) mg/dL Magnesium (1.7-2.2) mg/dL Total Bilirubin (0.2-1.3) mg/dL AST (17-59) U/L ALT (7-56) U/L Alkaline Phosphatase (38-126) U/L Total Protein (5.8-8.3) g/dL Albumin (3.0-4.8) g/dL Globulin gm/dL Albumin/Globulin Ratio (1.1-1.8) Free T4 (0.78-2.19) ng/dL TSH 3rd Generation (0.46-4.68) mIU/mL 05/10/18 Range/Units 21:48 WBC (4.5-11.0) 10^3/ul RBC (3.5-6.1) 10^6/uL Hgb (14.0-18.0) g/dL Hct (42.0-52.0) % MCV (80.0-105.0) fl MCH (25.0-35.0) pg MCHC (31.0-37.0) g/dl RDW (11.5-14.5) % Plt Count (120.0-450.0) 10^3/uL MPV (7.0-11.0) fl Gran % (50.0-68.0) % Lymph % (Auto) (22.0-35.0) % [place] % (Auto) (1.0-6.0) % Eos % (Auto) (1.5-5.0) % Baso % (Auto) (0.0-3.0) % Gran # (1.4-6.5) Lymph # (Auto) (1.2-3.4) [place] # (Auto) (0.1-0.6) Eos # (Auto) (0.0-0.7) Baso # (Auto) (0.0-2.0) K/mm3 APTT (25.1-36.5) Seconds Sodium (132-148) mmol/L Potassium (3.6-5.0) mmol/L Chloride (98-107) mmol/L Carbon Dioxide (21-33) mmol/L Anion Gap (10-20) BUN (7-21) mg/dL Creatinine (0.8-1.5) mg/dl Est GFR ( Amer) Est GFR (Non-Af Amer) POC Glucose (mg/dL) 219 H (65-110) mg/dL Random Glucose (70-110) mg/dL Calcium (8.4-10.5) mg/dL Phosphorus (2.5-4.5) mg/dL Magnesium (1.7-2.2) mg/dL Total Bilirubin (0.2-1.3) mg/dL AST (17-59) U/L ALT (7-56) U/L Alkaline Phosphatase (38-126) U/L Total Protein (5.8-8.3) g/dL Albumin (3.0-4.8) g/dL Globulin gm/dL Albumin/Globulin Ratio (1.1-1.8) Free T4 (0.78-2.19) ng/dL TSH 3rd Generation (0.46-4.68) mIU/mL Laboratory Results - last 24 hr 05/10/18 05/11/18 05/11/18 21:48 01:57 06:49 WBC RBC Hgb Hct MCV MCH MCHC RDW Plt Count MPV Gran % Lymph % (Auto) [place] % (Auto) Eos % (Auto) Baso % (Auto) Gran # Lymph # (Auto) [place] # (Auto) Eos # (Auto) Baso # (Auto) APTT Sodium Potassium Chloride Carbon Dioxide Anion Gap BUN Creatinine Est GFR ( Amer) Est GFR (Non-Af Amer) POC Glucose (mg/dL) 219 H 231 H 228 H Random Glucose Calcium Phosphorus Magnesium Total Bilirubin AST ALT Alkaline Phosphatase Total Protein Albumin Globulin Albumin/Globulin Ratio Free T4 TSH 3rd Generation 05/11/18 05/11/18 05/11/18 08:04 12:00 17:17 WBC RBC Hgb Hct MCV MCH MCHC RDW Plt Count MPV Gran % Lymph % (Auto) [place] % (Auto) Eos % (Auto) Baso % (Auto) Gran # Lymph # (Auto) [place] # (Auto) Eos # (Auto) Baso # (Auto) APTT Sodium Potassium Chloride Carbon Dioxide Anion Gap BUN Creatinine Est GFR ( Amer) Est GFR (Non-Af Amer) POC Glucose (mg/dL) 245 H 192 H 187 H Random Glucose Calcium Phosphorus Magnesium Total Bilirubin AST ALT Alkaline Phosphatase Total Protein Albumin Globulin Albumin/Globulin Ratio Free T4 TSH 3rd Generation 05/11/18 05/12/18 05/12/18 20:06 01:23 05:51 WBC RBC Hgb Hct MCV MCH MCHC RDW Plt Count MPV Gran % Lymph % (Auto) [place] % (Auto) Eos % (Auto) Baso % (Auto) Gran # Lymph # (Auto) [place] # (Auto) Eos # (Auto) Baso # (Auto) APTT Sodium Potassium Chloride Carbon Dioxide Anion Gap BUN Creatinine Est GFR ( Amer) Est GFR (Non-Af Amer) POC Glucose (mg/dL) 76 267 H 404 H* Random Glucose Calcium Phosphorus Magnesium Total Bilirubin AST ALT Alkaline Phosphatase Total Protein Albumin Globulin Albumin/Globulin Ratio Free T4 TSH 3rd Generation 05/12/18 05/12/18 05/12/18 06:05 07:52 10:56 WBC RBC Hgb Hct MCV MCH MCHC RDW Plt Count MPV Gran % Lymph % (Auto) [place] % (Auto) Eos % (Auto) Baso % (Auto) Gran # Lymph # (Auto) [place] # (Auto) Eos # (Auto) Baso # (Auto) APTT Sodium Potassium Chloride Carbon Dioxide Anion Gap BUN Creatinine Est GFR ( Amer) Est GFR (Non-Af Amer) POC Glucose (mg/dL) 410 H* > 500 H* 263 H Random Glucose Calcium Phosphorus Magnesium Total Bilirubin AST ALT Alkaline Phosphatase Total Protein Albumin Globulin Albumin/Globulin Ratio Free T4 TSH 3rd Generation 05/12/18 05/12/18 05/12/18 16:20 18:53 21:39 WBC RBC Hgb Hct MCV MCH MCHC RDW Plt Count MPV Gran % Lymph % (Auto) [place] % (Auto) Eos % (Auto) Baso % (Auto) Gran # Lymph # (Auto) [place] # (Auto) Eos # (Auto) Baso # (Auto) APTT 41.1 H Sodium Potassium Chloride Carbon Dioxide Anion Gap BUN Creatinine Est GFR ( Amer) Est GFR (Non-Af Amer) POC Glucose (mg/dL) 268 H 413 H* Random Glucose Calcium Phosphorus Magnesium Total Bilirubin AST ALT Alkaline Phosphatase Total Protein Albumin Globulin Albumin/Globulin Ratio Free T4 TSH 3rd Generation 05/13/18 05/13/18 05/13/18 04:10 04:10 04:10 WBC 6.2 D RBC 4.57 Hgb 13.9 L Hct 37.9 L MCV 82.9 MCH 30.4 MCHC 36.7 RDW 12.2 Plt Count 200 MPV 9.6 Gran % 60.1 Lymph % (Auto) 32.2 [place] % (Auto) 7.0 H Eos % (Auto) 0.5 L Baso % (Auto) 0.2 Gran # 3.72 Lymph # (Auto) 2.0 [place] # (Auto) 0.4 Eos # (Auto) 0.0 Baso # (Auto) 0.01 APTT Sodium 142 Potassium 3.8 Chloride 105 Carbon Dioxide 27 Anion Gap 14 BUN 18 Creatinine 0.8 Est GFR ( Amer) > 60 Est GFR (Non-Af Amer) > 60 POC Glucose (mg/dL) Random Glucose 184 H Calcium 9.3 Phosphorus 2.4 L Magnesium 2.2 Total Bilirubin 1.1 AST 33 ALT 56 Alkaline Phosphatase 83 Total Protein 6.6 Albumin 3.9 Globulin 2.6 Albumin/Globulin Ratio 1.5 Free T4 1.39 TSH 3rd Generation 1.69 05/13/18 05/13/18 05/13/18 04:10 07:08 11:31 WBC RBC Hgb Hct MCV MCH MCHC RDW Plt Count MPV Gran % Lymph % (Auto) [place] % (Auto) Eos % (Auto) Baso % (Auto) Gran # Lymph # (Auto) [place] # (Auto) Eos # (Auto) Baso # (Auto) APTT 70.8 H Sodium Potassium Chloride Carbon Dioxide Anion Gap BUN Creatinine Est GFR ( Amer) Est GFR (Non-Af Amer) POC Glucose (mg/dL) 69 57 L Random Glucose Calcium Phosphorus Magnesium Total Bilirubin AST ALT Alkaline Phosphatase Total Protein Albumin Globulin Albumin/Globulin Ratio Free T4 TSH 3rd Generation 05/13/18 12:07 WBC RBC Hgb Hct MCV MCH MCHC RDW Plt Count MPV Gran % Lymph % (Auto) [place] % (Auto) Eos % (Auto) Baso % (Auto) Gran # Lymph # (Auto) [place] # (Auto) Eos # (Auto) Baso # (Auto) APTT Sodium Potassium Chloride Carbon Dioxide Anion Gap BUN Creatinine Est GFR ( Amer) Est GFR (Non-Af Amer) POC Glucose (mg/dL) 105 Random Glucose Calcium Phosphorus Magnesium Total Bilirubin AST ALT Alkaline Phosphatase Total Protein Albumin Globulin Albumin/Globulin Ratio Free T4 TSH 3rd Generation Critical Care Progress Note - Nutrition Nutrition: Nutrition Category Date Time Status Consistent Carbohydrate [DIET] Diets 05/12/18 Lunch Ordered Assessment/Plan - Assessment and Plan (Free Text) Assessment: Patient seen and examined on rounds with resident, agree with note with following additions/exceptions; Patient is 58yo male with PMHx of IDDM, admitted to MICU for DKA, and NSTEMi Currently afebrile, HD stable, comfortable in NAD, with no major complaints OFF insulin drip, endocrine following, FS acceptable Cardiology following, no plans for cardiac cath as per cardio at this time DKA Pancreatitis NSTEMI Recommend: - supp o2 as needed - NO ID issues - BP control, ACEI - ASA, Lipitor, Statin - BB - follow up cardio - Heparin drip - ECHO - IVF - Sliding scale, Levemir - Follow up endo - check HgbA1C, Lipid panel, TSH - transfer to telemetry
--- NOTE | 2018-05-13 12:34 | CP.PCM.PN ---
Subjective - Date & Time of Evaluation Date of Evaluation: 05/13/18 Time of Evaluation: 09:40 - Subjective Subjective: Patient is awake and alert, no fevers, not in distress, no abdominal pain, no nausea or vomiting, no diarrhea. Objective - Vital Signs/Intake and Output Vital Signs (last 24 hours): Temp Pulse Resp BP Pulse Ox 98.1 F 68 17 132/71 95 05/12/18 08:35 05/13/18 09:37 05/13/18 06:10 05/13/18 09:37 05/13/18 06:10 Intake and Output: 05/13/18 05/13/18 06:59 18:59 Intake Total 1600 Output Total 750 Balance 850 - Medications Medications: Current Medications Acetaminophen (Tylenol 325mg Tab) 650 mg PO Q6H PRN PRN Reason: Headache Last Admin: 05/12/18 11:22 Dose: 650 mg Aspirin (Ecotrin) 81 mg PO DAILY [facility] Last Admin: 05/13/18 09:37 Dose: 81 mg Atorvastatin Calcium (Lipitor) 40 mg PO DIN [facility] Last Admin: 05/11/18 17:14 Dose: Not Given Dextrose (Dextrose 50% Inj) 0 ml IV STAT PRN; Protocol PRN Reason: Hypoglycemia Protocol Hydralazine HCl (Apresoline) 10 mg IVP Q6H PRN PRN Reason: sbp >160 or DBP >100 Last Admin: 05/13/18 01:46 Dose: 10 mg Dextrose (Dextrose 5% In Water 1000 Ml) 1,000 mls @ 0 mls/hr IV .Q0M PRN; Protocol; Per Protocol PRN Reason: Hypoglycemia Protocol Potassium Chloride 20 meq/ (Sodium Chloride) 1,010 mls @ 75 mls/hr IV .[id number] [facility] Last Admin: 05/13/18 09:50 Dose: 75 mls/hr Insulin Detemir (Levemir) 30 unit SC HS [facility] Last Admin: 05/12/18 21:47 Dose: 30 units Insulin Human Lispro (Humalog Low) 0 units SC ACHS [facility] PRN Reason: Protocol Last Admin: 05/13/18 08:14 Dose: Not Given Insulin Human Lispro (Humalog) 10 units SC AC [facility] Last Admin: 05/13/18 08:17 Dose: 10 unit Metoprolol Tartrate (Lopressor) 50 mg PO BRKDIN [facility] Last Admin: 05/13/18 09:37 Dose: 25 mg Pantoprazole Sodium (Protonix Ec Tab) 40 mg PO 0600 [facility] Last Admin: 05/13/18 06:07 Dose: 40 mg - Labs Labs: 05/13/18 04:10 05/13/18 04:10 PT 16.6 SECONDS (9.4-12.5) H 05/09/18 23:50 INR 1.45 05/09/18 23:50 APTT 70.8 Seconds (25.1-36.5) H 05/13/18 04:10 - Constitutional Appears: Non-toxic, No Acute Distress - Head Exam Head Exam: NORMAL INSPECTION - ENT Exam ENT Exam: Mucous Membranes Moist - Neck Exam Neck Exam: absent: Lymphadenopathy, Meningismus - Respiratory Exam Respiratory Exam: absent: Rales - Cardiovascular Exam Cardiovascular Exam: +S1, +S2 - GI/Abdominal Exam GI & Abdominal Exam: Soft. absent: Tenderness Assessment and Plan - Assessment and Plan (Free Text) Plan: Assessment systemic inflammatory response syndrome, S/P acute encephalopathy and S/P acute renal failure due to acute pancreatitis, presenting with diabetic ketoacidosis, no evidence of infection noted insulin dependent DM HTN bicuspid aortic valve history of rhabdomyolysis dyslipidemia Plan antibiotics have been discontinued and we will continue to monitor off antibiotics since he is at risk for nosocomial infections continue to monitor lipase levels and Troponin - GI and Cardio respectively are monitoring the patient HIV test is non-reactive
--- NOTE | 2018-05-13 14:13 | CP.PCM.CON ---
History of Present Illness - History of Present Illness History of Present Illness: Palliative consult requested by Reason: Goals of care advance care planning Past Patient History - Infectious Disease Hx of Infectious Diseases: None - Past Social History Smoking Status: Unknown If Ever Smoked - CARDIAC Hx Cardiac Disorders: Yes (AV problems) Hx Hypertension: Yes - PULMONARY Hx Respiratory Disorders: No - NEUROLOGICAL Other/Comment: unresponsive - HEENT Hx HEENT Problems: No - RENAL Hx Chronic Kidney Disease: No - ENDOCRINE/METABOLIC Hx Diabetes Mellitus Type 1: Yes - HEMATOLOGICAL/ONCOLOGICAL Hx Blood Disorders: No - INTEGUMENTARY Hx Dermatological Problems: No - MUSCULOSKELETAL/RHEUMATOLOGICAL Hx Musculoskeletal Disorders: No Hx Falls: Yes - GASTROINTESTINAL Hx Gastrointestinal Disorders: No - GENITOURINARY/GYNECOLOGICAL Hx Genitourinary Disorders: No - PSYCHIATRIC Hx Psychophysiologic Disorder: No Hx Substance Use: No (denied by family) - SURGICAL HISTORY Other/Comment: Unknown by family. - ANESTHESIA Hx Anesthesia: No Meds Allergies/Adverse Reactions: Allergies Allergy/AdvReac Type Severity Reaction Status Date / Time No Known Allergies Allergy Verified 06/30/12 17:03 - Medications Medications: Current Medications Acetaminophen (Tylenol 325mg Tab) 650 mg PO Q6H PRN PRN Reason: Headache Last Admin: 05/12/18 11:22 Dose: 650 mg Aspirin (Ecotrin) 81 mg PO DAILY [facility] Last Admin: 05/13/18 09:37 Dose: 81 mg Atorvastatin Calcium (Lipitor) 40 mg PO DIN [facility] Last Admin: 05/11/18 17:14 Dose: Not Given Dextrose (Dextrose 50% Inj) 0 ml IV STAT PRN; Protocol PRN Reason: Hypoglycemia Protocol Hydralazine HCl (Apresoline) 10 mg IVP Q6H PRN PRN Reason: sbp >160 or DBP >100 Last Admin: 05/13/18 01:46 Dose: 10 mg Dextrose (Dextrose 5% In Water 1000 Ml) 1,000 mls @ 0 mls/hr IV .Q0M PRN; Protocol; Per Protocol PRN Reason: Hypoglycemia Protocol Insulin Detemir (Levemir) 30 unit SC HS [facility] Last Admin: 05/12/18 21:47 Dose: 30 units Insulin Human Lispro (Humalog Low) 0 units SC ACHS [facility] PRN Reason: Protocol Last Admin: 05/13/18 11:58 Dose: Not Given Insulin Human Lispro (Humalog) 6 units SC AC [facility] Lisinopril (Zestril) 20 mg PO DAILY [facility] Last Admin: 05/13/18 11:59 Dose: 20 mg Metoprolol Tartrate (Lopressor) 50 mg PO BRKDIN [facility] Last Admin: 05/13/18 09:37 Dose: 25 mg Pantoprazole Sodium (Protonix Ec Tab) 40 mg PO 0600 [facility] Last Admin: 05/13/18 06:07 Dose: 40 mg Results - Vital Signs Recent Vital Signs: Last Vital Signs Temp 98.4 F 05/13/18 10:14 Pulse 80 05/13/18 11:59 Resp 14 05/13/18 10:00 BP 155/89 H 05/13/18 11:59 Pulse Ox 95 05/13/18 10:00 - Labs Result Diagrams: 05/13/18 04:10 05/13/18 04:10 Labs: Laboratory Results - last 24 hr 05/10/18 05/11/18 05/11/18 21:48 01:57 06:49 WBC RBC Hgb Hct MCV MCH MCHC RDW Plt Count MPV Gran % Lymph % (Auto) [place] % (Auto) Eos % (Auto) Baso % (Auto) Gran # Lymph # (Auto) [place] # (Auto) Eos # (Auto) Baso # (Auto) APTT Sodium Potassium Chloride Carbon Dioxide Anion Gap BUN Creatinine Est GFR ( Amer) Est GFR (Non-Af Amer) POC Glucose (mg/dL) 219 H 231 H 228 H Random Glucose Calcium Phosphorus Magnesium Total Bilirubin AST ALT Alkaline Phosphatase Total Protein Albumin Globulin Albumin/Globulin Ratio Free T4 TSH 3rd Generation 05/11/18 05/11/18 05/11/18 08:04 12:00 17:17 WBC RBC Hgb Hct MCV MCH MCHC RDW Plt Count MPV Gran % Lymph % (Auto) [place] % (Auto) Eos % (Auto) Baso % (Auto) Gran # Lymph # (Auto) [place] # (Auto) Eos # (Auto) Baso # (Auto) APTT Sodium Potassium Chloride Carbon Dioxide Anion Gap BUN Creatinine Est GFR ( Amer) Est GFR (Non-Af Amer) POC Glucose (mg/dL) 245 H 192 H 187 H Random Glucose Calcium Phosphorus Magnesium Total Bilirubin AST ALT Alkaline Phosphatase Total Protein Albumin Globulin Albumin/Globulin Ratio Free T4 TSH 3rd Generation 05/11/18 05/12/18 05/12/18 20:06 01:23 05:51 WBC RBC Hgb Hct MCV MCH MCHC RDW Plt Count MPV Gran % Lymph % (Auto) [place] % (Auto) Eos % (Auto) Baso % (Auto) Gran # Lymph # (Auto) [place] # (Auto) Eos # (Auto) Baso # (Auto) APTT Sodium Potassium Chloride Carbon Dioxide Anion Gap BUN Creatinine Est GFR ( Amer) Est GFR (Non-Af Amer) POC Glucose (mg/dL) 76 267 H 404 H* Random Glucose Calcium Phosphorus Magnesium Total Bilirubin AST ALT Alkaline Phosphatase Total Protein Albumin Globulin Albumin/Globulin Ratio Free T4 TSH 3rd Generation 05/12/18 05/12/18 05/12/18 06:05 07:52 10:56 WBC RBC Hgb Hct MCV MCH MCHC RDW Plt Count MPV Gran % Lymph % (Auto) [place] % (Auto) Eos % (Auto) Baso % (Auto) Gran # Lymph # (Auto) [place] # (Auto) Eos # (Auto) Baso # (Auto) APTT Sodium Potassium Chloride Carbon Dioxide Anion Gap BUN Creatinine Est GFR ( Amer) Est GFR (Non-Af Amer) POC Glucose (mg/dL) 410 H* > 500 H* 263 H Random Glucose Calcium Phosphorus Magnesium Total Bilirubin AST ALT Alkaline Phosphatase Total Protein Albumin Globulin Albumin/Globulin Ratio Free T4 TSH 3rd Generation 05/12/18 05/12/18 05/12/18 16:20 18:53 21:39 WBC RBC Hgb Hct MCV MCH MCHC RDW Plt Count MPV Gran % Lymph % (Auto) [place] % (Auto) Eos % (Auto) Baso % (Auto) Gran # Lymph # (Auto) [place] # (Auto) Eos # (Auto) Baso # (Auto) APTT 41.1 H Sodium Potassium Chloride Carbon Dioxide Anion Gap BUN Creatinine Est GFR ( Amer) Est GFR (Non-Af Amer) POC Glucose (mg/dL) 268 H 413 H* Random Glucose Calcium Phosphorus Magnesium Total Bilirubin AST ALT Alkaline Phosphatase Total Protein Albumin Globulin Albumin/Globulin Ratio Free T4 TSH 3rd Generation 05/13/18 05/13/18 05/13/18 04:10 04:10 04:10 WBC 6.2 D RBC 4.57 Hgb 13.9 L Hct 37.9 L MCV 82.9 MCH 30.4 MCHC 36.7 RDW 12.2 Plt Count 200 MPV 9.6 Gran % 60.1 Lymph % (Auto) 32.2 [place] % (Auto) 7.0 H Eos % (Auto) 0.5 L Baso % (Auto) 0.2 Gran # 3.72 Lymph # (Auto) 2.0 [place] # (Auto) 0.4 Eos # (Auto) 0.0 Baso # (Auto) 0.01 APTT Sodium 142 Potassium 3.8 Chloride 105 Carbon Dioxide 27 Anion Gap 14 BUN 18 Creatinine 0.8 Est GFR ( Amer) > 60 Est GFR (Non-Af Amer) > 60 POC Glucose (mg/dL) Random Glucose 184 H Calcium 9.3 Phosphorus 2.4 L Magnesium 2.2 Total Bilirubin 1.1 AST 33 ALT 56 Alkaline Phosphatase 83 Total Protein 6.6 Albumin 3.9 Globulin 2.6 Albumin/Globulin Ratio 1.5 Free T4 1.39 TSH 3rd Generation 1.69 05/13/18 05/13/18 05/13/18 04:10 07:08 11:31 WBC RBC Hgb Hct MCV MCH MCHC RDW Plt Count MPV Gran % Lymph % (Auto) [place] % (Auto) Eos % (Auto) Baso % (Auto) Gran # Lymph # (Auto) [place] # (Auto) Eos # (Auto) Baso # (Auto) APTT 70.8 H Sodium Potassium Chloride Carbon Dioxide Anion Gap BUN Creatinine Est GFR ( Amer) Est GFR (Non-Af Amer) POC Glucose (mg/dL) 69 57 L Random Glucose Calcium Phosphorus Magnesium Total Bilirubin AST ALT Alkaline Phosphatase Total Protein Albumin Globulin Albumin/Globulin Ratio Free T4 TSH 3rd Generation 05/13/18 12:07 WBC RBC Hgb Hct MCV MCH MCHC RDW Plt Count MPV Gran % Lymph % (Auto) [place] % (Auto) Eos % (Auto) Baso % (Auto) Gran # Lymph # (Auto) [place] # (Auto) Eos # (Auto) Baso # (Auto) APTT Sodium Potassium Chloride Carbon Dioxide Anion Gap BUN Creatinine Est GFR ( Amer) Est GFR (Non-Af Amer) POC Glucose (mg/dL) 105 Random Glucose Calcium Phosphorus Magnesium Total Bilirubin AST ALT Alkaline Phosphatase Total Protein Albumin Globulin Albumin/Globulin Ratio Free T4 TSH 3rd Generation
--- NOTE | 2018-05-13 14:23 | CP.PCM.CON ---
History of Present Illness - History of Present Illness History of Present Illness: Palliative consult requested by Dr Shelby Escoto Reason: Goals of care 58 year old male with history DM,HTN, HLD, CVA who presented to ED altered, hyper ventilating. Family reports him as having abdominal pain,multiple bouts of diarrhea and vomiting. Initial blood glucose was 1173, K was 8, PH. 6.8. EKG showed PAT. Echo result; normal LV, EF 60-65%,calcified aortic valve with decreased opening, possible bicuspid aortic valve, trace regurgitation, mild aortic stenosis, trace mitral regurgitation, IVC normal and collapses 50% with inspiration PMHx:DM on insulin pump, DKA, HTN, HLD,anxiety,depression. Social History: Non smoker, no alcohol or drug use. . Former , followed by [facility] Family History: Non contributory Advance Care Planning: He is DNR/DNI Review of Systems: As per HPI, others negative 12 point review. Past Patient History - Infectious Disease Hx of Infectious Diseases: None - Past Social History Smoking Status: Unknown If Ever Smoked - CARDIAC Hx Cardiac Disorders: Yes (AV problems) Hx Hypertension: Yes - PULMONARY Hx Respiratory Disorders: No - NEUROLOGICAL Other/Comment: unresponsive - HEENT Hx HEENT Problems: No - RENAL Hx Chronic Kidney Disease: No - ENDOCRINE/METABOLIC Hx Diabetes Mellitus Type 1: Yes - HEMATOLOGICAL/ONCOLOGICAL Hx Blood Disorders: No - INTEGUMENTARY Hx Dermatological Problems: No - MUSCULOSKELETAL/RHEUMATOLOGICAL Hx Musculoskeletal Disorders: No Hx Falls: Yes - GASTROINTESTINAL Hx Gastrointestinal Disorders: No - GENITOURINARY/GYNECOLOGICAL Hx Genitourinary Disorders: No - PSYCHIATRIC Hx Psychophysiologic Disorder: No Hx Substance Use: No (denied by family) - SURGICAL HISTORY Other/Comment: Unknown by family. - ANESTHESIA Hx Anesthesia: No Meds Allergies/Adverse Reactions: Allergies Allergy/AdvReac Type Severity Reaction Status Date / Time No Known Allergies Allergy Verified 06/30/12 17:03 - Medications Medications: Current Medications Acetaminophen (Tylenol 325mg Tab) 650 mg PO Q6H PRN PRN Reason: Headache Last Admin: 05/12/18 11:22 Dose: 650 mg Aspirin (Ecotrin) 81 mg PO DAILY [facility] Last Admin: 05/13/18 09:37 Dose: 81 mg Atorvastatin Calcium (Lipitor) 40 mg PO DIN [facility] Last Admin: 05/11/18 17:14 Dose: Not Given Dextrose (Dextrose 50% Inj) 0 ml IV STAT PRN; Protocol PRN Reason: Hypoglycemia Protocol Hydralazine HCl (Apresoline) 10 mg IVP Q6H PRN PRN Reason: sbp >160 or DBP >100 Last Admin: 05/13/18 01:46 Dose: 10 mg Dextrose (Dextrose 5% In Water 1000 Ml) 1,000 mls @ 0 mls/hr IV .Q0M PRN; Protocol; Per Protocol PRN Reason: Hypoglycemia Protocol Insulin Detemir (Levemir) 30 unit SC HS [facility] Last Admin: 05/12/18 21:47 Dose: 30 units Insulin Human Lispro (Humalog Low) 0 units SC ACHS [facility] PRN Reason: Protocol Last Admin: 05/13/18 11:58 Dose: Not Given Insulin Human Lispro (Humalog) 6 units SC AC [facility] Lisinopril (Zestril) 20 mg PO DAILY [facility] Last Admin: 05/13/18 11:59 Dose: 20 mg Metoprolol Tartrate (Lopressor) 50 mg PO BRKDIN [facility] Last Admin: 05/13/18 09:37 Dose: 25 mg Pantoprazole Sodium (Protonix Ec Tab) 40 mg PO 0600 [facility] Last Admin: 05/13/18 06:07 Dose: 40 mg Physical Exam - Constitutional Appears: No Acute Distress - Head Exam Head Exam: NORMOCEPHALIC - Eye Exam Eye Exam: Normal appearance, PERRL - ENT Exam ENT Exam: Mucous Membranes Moist, Normal Oropharynx - Neck Exam Neck exam: Positive for: Normal Inspection - Respiratory Exam Respiratory Exam: Clear to Auscultation Bilateral, NORMAL BREATHING PATTERN - GI/Abdominal Exam GI & Abdominal Exam: Normal Bowel Sounds, Soft - Extremities Exam Extremities exam: Positive for: normal inspection, pedal pulses present - Back Exam Back exam: NORMAL INSPECTION - Neurological Exam Neurological exam: Alert, Oriented x3 - Skin Skin Exam: Dry, Normal Color, Warm - Additional Findings Additional findings: Palliative performance scale rating 80% Results - Vital Signs Recent Vital Signs: Last Vital Signs Temp 98.4 F 05/13/18 10:14 Pulse 80 05/13/18 11:59 Resp 14 05/13/18 10:00 BP 155/89 H 05/13/18 11:59 Pulse Ox 95 05/13/18 10:00 - Labs Result Diagrams: 05/13/18 04:10 05/13/18 04:10 Labs: Laboratory Results - last 24 hr 05/10/18 05/11/18 05/11/18 21:48 01:57 06:49 WBC RBC Hgb Hct MCV MCH MCHC RDW Plt Count MPV Gran % Lymph % (Auto) Vernon % (Auto) Eos % (Auto) Baso % (Auto) Gran # Lymph # (Auto) Vernon # (Auto) Eos # (Auto) Baso # (Auto) APTT Sodium Potassium Chloride Carbon Dioxide Anion Gap BUN Creatinine Est GFR ( Amer) Est GFR (Non-Af Amer) POC Glucose (mg/dL) 219 H 231 H 228 H Random Glucose Calcium Phosphorus Magnesium Total Bilirubin AST ALT Alkaline Phosphatase Total Protein Albumin Globulin Albumin/Globulin Ratio Free T4 TSH 3rd Generation 05/11/18 05/11/18 05/11/18 08:04 12:00 17:17 WBC RBC Hgb Hct MCV MCH MCHC RDW Plt Count MPV Gran % Lymph % (Auto) Vernon % (Auto) Eos % (Auto) Baso % (Auto) Gran # Lymph # (Auto) Vernon # (Auto) Eos # (Auto) Baso # (Auto) APTT Sodium Potassium Chloride Carbon Dioxide Anion Gap BUN Creatinine Est GFR ( Amer) Est GFR (Non-Af Amer) POC Glucose (mg/dL) 245 H 192 H 187 H Random Glucose Calcium Phosphorus Magnesium Total Bilirubin AST ALT Alkaline Phosphatase Total Protein Albumin Globulin Albumin/Globulin Ratio Free T4 TSH 3rd Generation 05/11/18 05/12/18 05/12/18 20:06 01:23 05:51 WBC RBC Hgb Hct MCV MCH MCHC RDW Plt Count MPV Gran % Lymph % (Auto) Vernon % (Auto) Eos % (Auto) Baso % (Auto) Gran # Lymph # (Auto) Vernon # (Auto) Eos # (Auto) Baso # (Auto) APTT Sodium Potassium Chloride Carbon Dioxide Anion Gap BUN Creatinine Est GFR ( Amer) Est GFR (Non-Af Amer) POC Glucose (mg/dL) 76 267 H 404 H* Random Glucose Calcium Phosphorus Magnesium Total Bilirubin AST ALT Alkaline Phosphatase Total Protein Albumin Globulin Albumin/Globulin Ratio Free T4 TSH 3rd Generation 05/12/18 05/12/18 05/12/18 06:05 07:52 10:56 WBC RBC Hgb Hct MCV MCH MCHC RDW Plt Count MPV Gran % Lymph % (Auto) Vernon % (Auto) Eos % (Auto) Baso % (Auto) Gran # Lymph # (Auto) Vernon # (Auto) Eos # (Auto) Baso # (Auto) APTT Sodium Potassium Chloride Carbon Dioxide Anion Gap BUN Creatinine Est GFR ( Amer) Est GFR (Non-Af Amer) POC Glucose (mg/dL) 410 H* > 500 H* 263 H Random Glucose Calcium Phosphorus Magnesium Total Bilirubin AST ALT Alkaline Phosphatase Total Protein Albumin Globulin Albumin/Globulin Ratio Free T4 TSH 3rd Generation 05/12/18 05/12/18 05/12/18 16:20 18:53 21:39 WBC RBC Hgb Hct MCV MCH MCHC RDW Plt Count MPV Gran % Lymph % (Auto) Vernon % (Auto) Eos % (Auto) Baso % (Auto) Gran # Lymph # (Auto) Vernon # (Auto) Eos # (Auto) Baso # (Auto) APTT 41.1 H Sodium Potassium Chloride Carbon Dioxide Anion Gap BUN Creatinine Est GFR ( Amer) Est GFR (Non-Af Amer) POC Glucose (mg/dL) 268 H 413 H* Random Glucose Calcium Phosphorus Magnesium Total Bilirubin AST ALT Alkaline Phosphatase Total Protein Albumin Globulin Albumin/Globulin Ratio Free T4 TSH 3rd Generation 05/13/18 05/13/18 05/13/18 04:10 04:10 04:10 WBC 6.2 D RBC 4.57 Hgb 13.9 L Hct 37.9 L MCV 82.9 MCH 30.4 MCHC 36.7 RDW 12.2 Plt Count 200 MPV 9.6 Gran % 60.1 Lymph % (Auto) 32.2 Vernon % (Auto) 7.0 H Eos % (Auto) 0.5 L Baso % (Auto) 0.2 Gran # 3.72 Lymph # (Auto) 2.0 Vernon # (Auto) 0.4 Eos # (Auto) 0.0 Baso # (Auto) 0.01 APTT Sodium 142 Potassium 3.8 Chloride 105 Carbon Dioxide 27 Anion Gap 14 BUN 18 Creatinine 0.8 Est GFR ( Amer) > 60 Est GFR (Non-Af Amer) > 60 POC Glucose (mg/dL) Random Glucose 184 H Calcium 9.3 Phosphorus 2.4 L Magnesium 2.2 Total Bilirubin 1.1 AST 33 ALT 56 Alkaline Phosphatase 83 Total Protein 6.6 Albumin 3.9 Globulin 2.6 Albumin/Globulin Ratio 1.5 Free T4 1.39 TSH 3rd Generation 1.69 05/13/18 05/13/18 05/13/18 04:10 07:08 11:31 WBC RBC Hgb Hct MCV MCH MCHC RDW Plt Count MPV Gran % Lymph % (Auto) Vernon % (Auto) Eos % (Auto) Baso % (Auto) Gran # Lymph # (Auto) Vernon # (Auto) Eos # (Auto) Baso # (Auto) APTT 70.8 H Sodium Potassium Chloride Carbon Dioxide Anion Gap BUN Creatinine Est GFR ( Amer) Est GFR (Non-Af Amer) POC Glucose (mg/dL) 69 57 L Random Glucose Calcium Phosphorus Magnesium Total Bilirubin AST ALT Alkaline Phosphatase Total Protein Albumin Globulin Albumin/Globulin Ratio Free T4 TSH 3rd Generation 05/13/18 12:07 WBC RBC Hgb Hct MCV MCH MCHC RDW Plt Count MPV Gran % Lymph % (Auto) Vernon % (Auto) Eos % (Auto) Baso % (Auto) Gran # Lymph # (Auto) Vernon # (Auto) Eos # (Auto) Baso # (Auto) APTT Sodium Potassium Chloride Carbon Dioxide Anion Gap BUN Creatinine Est GFR ( Amer) Est GFR (Non-Af Amer) POC Glucose (mg/dL) 105 Random Glucose Calcium Phosphorus Magnesium Total Bilirubin AST ALT Alkaline Phosphatase Total Protein Albumin Globulin Albumin/Globulin Ratio Free T4 TSH 3rd Generation Assessment & Plan - Assessment and Plan (Free Text) Assessment: 58 year old male with history of DM using insulin pump,DKA, CVA, HTN, HLD who was admitted in DKA, acute pancreatitis, leukocytosis and PAT.He has since reverted to NSR. The patient is alert and oriented. He understands the benefits and burdens of intubation and CPR. He is clear in stating that he doses not want aggressive resuscitative measures if his heart/lung or kidneys fail. He does suffer from what he calls post traumatic stress and is quite candid when he speaks about his beliefs regarding and illness. He clearly understands the difference between causing his own as opposed to being critically ill. If critically ill, he does not want his life prolonged under such circumstances. POLST: DNR/ DNI directive completed, a copy is placed in the patients chart Time spent with pait in establishing goals of care and advance care planning, 50 minutes Plan: Goals of care and advance care planning; POLST DNR/DNI Hyperglycemia: Endocrinology following.Continue Levemir, Lispro, Humalog Pat resolved,Cardiology following, continue ASA, Lopressor, ALANNA-I, nuclear stress testing as out patient Anxiety/Depression: follow with psychiatry as [facility] out patient
--- NOTE | 2018-05-13 15:01 | PN ---
Copied To: Laurel Fenton MD Attending MD: Laurel Fenton MD DATE: 05/13/2018 ENDOCRINOLOGY FOLLOWUP NOTE LOCATION: Room 367. This is a 58-year-old male with recent uncontrolled type 1 insulin-dependent diabetes presenting here with diabetic ketoacidosis and dehydration and is now being followed closely for metabolic management. His glycemic levels are fluctuating, but improved and the glucose values today have ranged from 69 to 105 mg/dL. His chemistry showed a BUN of 18, sodium 142, potassium 3.8, chloride 105, CO2 27, glucose 184 and creatinine 0.8. His bedtime glucose level was elevated at 413 mg/dL. So at this time, we will continue the same basal insulin given as Levemir at 30 units subcu at bedtime daily as given. We will lower the Humalog to 6 units subcu t.i.d. before meals as ordered. We will obtain serial chemistries and supplement accordingly needed. We will follow with you. Laurel Fenton MD
--- NOTE | 2018-05-13 15:56 | CP.PCM.PN ---
Subjective - Date & Time of Evaluation Date of Evaluation: 05/13/18 Time of Evaluation: 15:54 - Subjective Subjective: Nephrology Consultation Note: Assessment: stable Acute Kidney Injury (N17.9) likely due to severe DKA/hypotension/dehydration: RESOLVED HAGMA with lactic acidosis; Resolved acute pancreatitis Hypokalemia, hypernatremia, hypocalcemia possible sepsis hx of DM, HTN, dyslipidemia, rhabdomyolysis elevated troponins Plan No acute need for renal replacement therapy at this time. serum cr trending down and WNL now Maintain hemodynamics stable. Avoid hypotension. Patient not on ACEI/ARB due to recent MARCELLE. resume lisinopril 20 mg/day as BP elevated d/c IVF supplement lytes as needed check urine analysis, spot protein/creatinine, albumin/creatinine ratio Dose meds/antibiotics for normal GFR. Glycemic control Further work up/management as per primary team Thanks for allowing me to participate in care of your patient. Will follow patient with you. Please call if any Qs. had d/w team Dr Wilian Multani Office: [phone] Chief Complaint; high sugar Reason for consult: Acute Kidney Injury HPI: Pt is a 58 M with hx of diabetes Mellitus ( years), hypertension (years), DKA in past, hyperlipidemia/rhabdomyolysis, presented with complaints of nausea/ vomitting and loose stool for 2 days and found to have severe DKa with MARCELLE. hence renal consult for MARCELLE management. pt feels sick, denies CP/SOB. no nausea/ vomiting now. had loose stool Denies OTC/herbal meds or NSAIDs No recent iodinated contrast exposure. Noted obvious episodes of low BP. ROS: Cardiovascular: No chest pain. Pulmonary: No shortness of breath Gastrointestinal: no abdominal pain No nausea. No vomiting. Genitourinary: No pain while urinating. Denies blood in urine. All other negative except as mentioned in HPI Physical Examination: General Appearance: Comfortable, in no acute respiratory distress, co-operative . better appearing Vitals reviewed and noted as below Head; Atraumatic, normocephalic ENT: no ulcers no thrush. Tongue is midline. Oropharynx: no rash or ulcers. EYES: Pupils are equal, round and reactive to light accommodation. Eye muscles and extraocular movement intact. Sclera is anicteric. Neck; supple no lymphadenopathy, no thyromegaly or bruit Lungs: Normal respiratory rate/effort. Breath sounds bilateral equal and clear Heart: Normal rate. s1s2 normal. No rub or gallop. Extremities: no edema. No varicose veins Neurological: Patient is awake alert and oriented to person, place and time. No focal deficit. Strength bilateral appropriate and equal Skin: Warm and dry. Normal turgor. No rash. Palpitation: Normal elasticity for age Abdomen: Abdomen is soft. Bowel sounds +. There is no abdominal tenderness, no guarding/rigidity no organomegaly Psych: limited insight and flat affect/mood MSK: no joint tenderness or swelling. Digits and nails normal, no deformity : kidney or bladder not palpable Labs/imaging reviewed. Past medical history, past surgical history, family history, social history, allergy reviewed and noted as below Family hx: no hx of CKD. Rest non-contributory imaging for kidney: unremarkable Objective - Vital Signs/Intake and Output Vital Signs (last 24 hours): Temp Pulse Resp BP Pulse Ox 98.4 F 84 14 155/89 H 95 05/13/18 10:14 05/13/18 14:00 05/13/18 10:00 05/13/18 11:59 05/13/18 10:00 Intake and Output: 05/13/18 05/13/18 06:59 18:59 Intake Total 1600 625 Output Total 750 300 Balance 850 325 - Medications Medications: Current Medications Acetaminophen (Tylenol 325mg Tab) 650 mg PO Q6H PRN PRN Reason: Headache Last Admin: 05/12/18 11:22 Dose: 650 mg Aspirin (Ecotrin) 81 mg PO DAILY [facility] Last Admin: 05/13/18 09:37 Dose: 81 mg Atorvastatin Calcium (Lipitor) 40 mg PO DIN [facility] Last Admin: 05/11/18 17:14 Dose: Not Given Dextrose (Dextrose 50% Inj) 0 ml IV STAT PRN; Protocol PRN Reason: Hypoglycemia Protocol Hydralazine HCl (Apresoline) 10 mg IVP Q6H PRN PRN Reason: sbp >160 or DBP >100 Last Admin: 05/13/18 01:46 Dose: 10 mg Dextrose (Dextrose 5% In Water 1000 Ml) 1,000 mls @ 0 mls/hr IV .Q0M PRN; Protocol; Per Protocol PRN Reason: Hypoglycemia Protocol Insulin Detemir (Levemir) 30 unit SC [facility] Last Admin: 05/12/18 21:47 Dose: 30 units Insulin Human Lispro (Humalog Low) 0 units SC ACHS [facility] PRN Reason: Protocol Last Admin: 05/13/18 11:58 Dose: Not Given Insulin Human Lispro (Humalog) 6 units SC AC [facility] Lisinopril (Zestril) 20 mg PO DAILY [facility] Last Admin: 05/13/18 11:59 Dose: 20 mg Metoprolol Tartrate (Lopressor) 50 mg PO BRKDIN [facility] Last Admin: 05/13/18 09:37 Dose: 25 mg Pantoprazole Sodium (Protonix Ec Tab) 40 mg PO 0600 [facility] Last Admin: 05/13/18 06:07 Dose: 40 mg - Labs Labs: 05/13/18 04:10 05/13/18 04:10 PT 16.6 SECONDS (9.4-12.5) H 05/09/18 23:50 INR 1.45 05/09/18 23:50 APTT 70.8 Seconds (25.1-36.5) H 05/13/18 04:10
[2018-05-13] MEDS: Insulin Detemir 100 units/ml Vial (Levemir) SC SCH (22:06)
[2018-05-14] MEDS: Pantoprazole 40 mg EC Tab PO SCH (05:27)
[2018-05-14 06:40] LABS: BASO # 0.01 K/mm3 (0.0-2.0); BASO % 0.2 % (0.0-3.0); EOS # 0.1 (0.0-0.7); EOS % 1.1 % (1.5-5.0); GRAN # 2.46 (1.4-6.5); GRAN % 53.7 % (50.0-68.0); HEMOGLOBIN 13.2 g/dL (14.0-18.0); LYMPH # 1.6 (1.2-3.4); LYMPH % 35.8 % (22.0-35.0); MEAN CELL VOLUME 83.9 fl (80.0-105.0); MEAN CORPUSCULAR HGB CONC 35.8 g/dl (31.0-37.0); MEAN PLATELET VOLUME 9.9 fl (7.0-11.0); MONO # 0.4 (0.1-0.6); MONO % 9.2 % (1.0-6.0); RBC 4.4 10^6/uL (3.5-6.1); RED CELL DISTRIBUTION WIDTH 11.7 % (11.5-14.5); WHITE BLOOD COUNT 4.6 10^3/ul (4.5-11.0)
[2018-05-14 07:03] LABS: ALB/GLOB RATIO 1.4 (1.1-1.8); ALBUMIN 3.6 g/dL (3.0-4.8); ALT/SGPT 49 U/L (7-56); AST/SGOT 24 U/L (17-59); BLOOD UREA NITROGEN 18 mg/dL (7-21); GFR NON-AFRICAN AMERICAN > 60
--- NOTE | 2018-05-14 07:59 | CP.PCM.PN ---
Subjective - Date & Time of Evaluation Date of Evaluation: 05/14/18 Time of Evaluation: 07:00 - Subjective Subjective: Stable on 3R now. No CP or SOB. He feels much better. + ambulation. V/S stable. RSR PE: Lungs: clear Cor.: S1S2 Abd.: soft Ext.: no edema Neuro.: alert I/O; 1065/300 recorded Labs noted. CBC, CMP, BS all OK BC X2 NG at 4 days. Objective - Vital Signs/Intake and Output Vital Signs (last 24 hours): Temp Pulse Resp BP Pulse Ox 98.5 F 57 L 19 147/95 H 99 05/13/18 16:30 05/14/18 06:00 05/13/18 16:30 05/13/18 16:30 05/13/18 16:30 - Medications Medications: Current Medications Acetaminophen (Tylenol 325mg Tab) 650 mg PO Q6H PRN PRN Reason: Headache Last Admin: 05/12/18 11:22 Dose: 650 mg Aspirin (Ecotrin) 81 mg PO DAILY [facility] Last Admin: 05/13/18 09:37 Dose: 81 mg Atorvastatin Calcium (Lipitor) 40 mg PO DIN [facility] Last Admin: 05/11/18 17:14 Dose: Not Given Dextrose (Dextrose 50% Inj) 0 ml IV STAT PRN; Protocol PRN Reason: Hypoglycemia Protocol Hydralazine HCl (Apresoline) 10 mg IVP Q6H PRN PRN Reason: sbp >160 or DBP >100 Last Admin: 05/13/18 01:46 Dose: 10 mg Dextrose (Dextrose 5% In Water 1000 Ml) 1,000 mls @ 0 mls/hr IV .Q0M PRN; Protocol; Per Protocol PRN Reason: Hypoglycemia Protocol Insulin Detemir (Levemir) 30 unit SC HS [facility] Last Admin: 05/13/18 22:06 Dose: 30 units Insulin Human Lispro (Humalog Low) 0 units SC ACHS [facility] PRN Reason: Protocol Last Admin: 05/13/18 22:02 Dose: Not Given Insulin Human Lispro (Humalog) 6 units SC AC [facility] Last Admin: 05/13/18 16:17 Dose: 6 units Lisinopril (Zestril) 20 mg PO DAILY [facility] Last Admin: 05/13/18 11:59 Dose: 20 mg Metoprolol Tartrate (Lopressor) 50 mg PO BRKDIN [facility] Last Admin: 05/13/18 16:18 Dose: 50 mg Pantoprazole Sodium (Protonix Ec Tab) 40 mg PO 0600 [facility] Last Admin: 05/14/18 05:27 Dose: 40 mg - Labs Labs: 05/14/18 06:00 05/14/18 06:00 PT 16.6 SECONDS (9.4-12.5) H 05/09/18 23:50 INR 1.45 05/09/18 23:50 APTT 70.8 Seconds (25.1-36.5) H 05/13/18 04:10 Assessment and Plan - Assessment and Plan (Free Text) Assessment: DKA PAF, resolved + trops, probably due to DKA, metabolic derangements, doubt acute TX (Echo shows NL LV, No ECG changes or CP) Acute pancreatitis by elevated lipase HBP Bicuspid AV with mild/mod. Plan: Nuclear stress test tomorrow. OOB/PT As per Psychiatry, ID, Endo., Renal, Palliative Care and medical team.
[2018-05-14] MEDS: Insulin Lispro 1 UNITS/0.01 ML SC SCH ×3 (08:26→17:17)
[2018-05-14] MEDS: Insulin Lispro (humaLOG) LOW Coverage SC SCH ×4 (08:26→21:44)
--- NOTE | 2018-05-14 08:51 | CP.PCM.PN ---
Subjective - Date & Time of Evaluation Date of Evaluation: 05/14/18 Time of Evaluation: 07:00 - Subjective Subjective: Endocrinology progress note: Patient seen and examined at bedside. No acute events overnight. He says states that he feels well. Patient was instructed to bring him his insulin pump from home, so that we can make sure that his working well prior to discharge. No complaints. 12 point ROS performed and negative other than stated above. Objective - Vital Signs/Intake and Output Vital Signs (last 24 hours): Temp Pulse Resp BP Pulse Ox 97.8 F 70 18 155/86 H 99 05/14/18 08:06 05/14/18 08:28 05/14/18 08:06 05/14/18 08:28 05/14/18 08:06 - Medications Medications: Current Medications Acetaminophen (Tylenol 325mg Tab) 650 mg PO Q6H PRN PRN Reason: Headache Last Admin: 05/12/18 11:22 Dose: 650 mg Aspirin (Ecotrin) 81 mg PO DAILY [facility] Last Admin: 05/13/18 09:37 Dose: 81 mg Atorvastatin Calcium (Lipitor) 40 mg PO DIN [facility] Last Admin: 05/11/18 17:14 Dose: Not Given Dextrose (Dextrose 50% Inj) 0 ml IV STAT PRN; Protocol PRN Reason: Hypoglycemia Protocol Hydralazine HCl (Apresoline) 10 mg IVP Q6H PRN PRN Reason: sbp >160 or DBP >100 Last Admin: 05/13/18 01:46 Dose: 10 mg Dextrose (Dextrose 5% In Water 1000 Ml) 1,000 mls @ 0 mls/hr IV .Q0M PRN; Protocol; Per Protocol PRN Reason: Hypoglycemia Protocol Insulin Detemir (Levemir) 30 unit SC HS [facility] Last Admin: 05/13/18 22:06 Dose: 30 units Insulin Human Lispro (Humalog Low) 0 units SC ACHS [facility] PRN Reason: Protocol Last Admin: 05/14/18 08:26 Dose: Not Given Insulin Human Lispro (Humalog) 6 units SC AC [facility] Last Admin: 05/14/18 08:26 Dose: Not Given Lisinopril (Zestril) 20 mg PO DAILY [facility] Last Admin: 05/13/18 11:59 Dose: 20 mg Metoprolol Tartrate (Lopressor) 50 mg PO BRKDIN [facility] Last Admin: 05/14/18 08:28 Dose: 50 mg Pantoprazole Sodium (Protonix Ec Tab) 40 mg PO 0600 [facility] Last Admin: 05/14/18 05:27 Dose: 40 mg - Labs Labs: 05/14/18 06:00 05/14/18 06:00 PT 16.6 SECONDS (9.4-12.5) H 05/09/18 23:50 INR 1.45 05/09/18 23:50 APTT 70.8 Seconds (25.1-36.5) H 05/13/18 04:10 - Constitutional Appears: No Acute Distress - Head Exam Head Exam: ATRAUMATIC, NORMOCEPHALIC - Eye Exam Eye Exam: EOMI - ENT Exam ENT Exam: Mucous Membranes Moist - Respiratory Exam Respiratory Exam: Clear to Ausculation Bilateral. absent: Rales, Wheezes - Cardiovascular Exam Cardiovascular Exam: REGULAR RHYTHM, +S1, +S2 - GI/Abdominal Exam GI & Abdominal Exam: Soft. absent: Tenderness - Extremities Exam Extremities Exam: absent: Calf Tenderness, Pedal Edema - Neurological Exam Neurological Exam: Alert, Awake - Psychiatric Exam Psychiatric exam: Normal Mood - Skin Skin Exam: Dry, Warm Assessment and Plan - Assessment and Plan (Free Text) Assessment: 58-year-old male with past medical history of insulin dependent diabetes on an insulin pump at home presented with DKA and severe dehydration. Patient currently being seen for metabolic management. Carb consistent diet Continue long acting basal Levemir 30 units at bedtime Continue basal Humalog 6 units before meals Continue Humalog sliding scale at low dose as protocol Replete electrolytes as needed Continue serial fingersticks Follow up in service educator referral Case and plan was reviewed and discussed with Dr. Fenton. Unruly Katz, PGY 3
--- NOTE | 2018-05-14 09:14 | CP.PCM.PN ---
Addendum entered and electronically signed by Nawaf Hogan DO 05/15/18 08:20 : Assessment: 58 year old male with past medical history of diabetes with insulin pump, hypertension, bicuspid aortic valve, rhabdomyolysis, and hyperlipidemia admitted for DKA. Patient was transferred out of ICU to med/surg for stabilization post DKA. Original Note: <Nawaf Hogan - Last Filed: 05/14/18 13:55> Subjective - Date & Time of Evaluation Date of Evaluation: 05/14/18 Time of Evaluation: 09:13 - Subjective Subjective: Nawaf Hogan DO PGY1 - Internal Medicine [employer] - Hospital Progress Note Patient was seen and examined at bedside [place] sweaty last night which he reports is associated w/ low BG; otherwise voicing no complaints Reports minimal/mild nausea; does not want any medication Denies any chest pain, Sob, cough, Abd pain, V/D/C, no urinary complaints Objective - Vital Signs/Intake and Output Vital Signs (last 24 hours): Temp Pulse Resp BP Pulse Ox 97.8 F 70 18 155/86 H 99 05/14/18 08:06 05/14/18 08:28 05/14/18 08:06 05/14/18 08:28 05/14/18 08:06 - Medications Medications: Current Medications Acetaminophen (Tylenol 325mg Tab) 650 mg PO Q6H PRN PRN Reason: Headache Last Admin: 05/12/18 11:22 Dose: 650 mg Aspirin (Ecotrin) 81 mg PO DAILY [facility] Last Admin: 05/13/18 09:37 Dose: 81 mg Atorvastatin Calcium (Lipitor) 40 mg PO DIN [facility] Last Admin: 05/11/18 17:14 Dose: Not Given Dextrose (Dextrose 50% Inj) 0 ml IV STAT PRN; Protocol PRN Reason: Hypoglycemia Protocol Hydralazine HCl (Apresoline) 10 mg IVP Q6H PRN PRN Reason: sbp >160 or DBP >100 Last Admin: 05/13/18 01:46 Dose: 10 mg Dextrose (Dextrose 5% In Water 1000 Ml) 1,000 mls @ 0 mls/hr IV .Q0M PRN; Protocol; Per Protocol PRN Reason: Hypoglycemia Protocol Insulin Detemir (Levemir) 30 unit SC HS [facility] Last Admin: 05/13/18 22:06 Dose: 30 units Insulin Human Lispro (Humalog Low) 0 units SC ACHS [facility] PRN Reason: Protocol Last Admin: 05/14/18 08:26 Dose: Not Given Insulin Human Lispro (Humalog) 6 units SC [facility] Last Admin: 05/14/18 08:26 Dose: Not Given Lisinopril (Zestril) 20 mg PO DAILY [facility] Last Admin: 05/13/18 11:59 Dose: 20 mg Metoprolol Tartrate (Lopressor) 50 mg PO BRKDIN [facility] Last Admin: 05/14/18 08:28 Dose: 50 mg Pantoprazole Sodium (Protonix Ec Tab) 40 mg PO 0600 [facility] Last Admin: 05/14/18 05:27 Dose: 40 mg - Labs Labs: 05/14/18 06:00 05/14/18 06:00 PT 16.6 SECONDS (9.4-12.5) H 05/09/18 23:50 INR 1.45 05/09/18 23:50 APTT 70.8 Seconds (25.1-36.5) H 05/13/18 04:10 Physical Exam - Constitutional Appears: No Acute Distress, Patient appears comfortable - Head Exam Head Exam: ATRAUMATIC, NORMAL INSPECTION - Eye Exam Eye Exam: Normal appearance - ENT Exam ENT Exam: Mucous Membranes Moist - Respiratory Exam Respiratory Exam: Clear to Ausculation Bilateral. absent: Rales, Rhonchi, Wheezes, Respiratory Distress - Cardiovascular Exam Cardiovascular Exam: RRR, +Systolic Murmur at aortic position 3/6 - GI/Abdominal Exam GI & Abdominal Exam: Soft, Normal Bowel Sounds. absent: Tenderness - Extremities Exam Extremities Exam: Minimal LE edema BL - Neurological Exam Neurological Exam: Alert, Awake, Oriented x3 - Psychiatric Exam Psychiatric exam: Normal Affect, Normal Mood - Skin Skin Exam: Dry, Intact, Normal Color, Warm Assessment and Plan - Assessment and Plan (Free Text) Assessment: 58 year old male with past medical history of diabetes with insulin pump, hypertension, bicuspid aortic valve, rhabdomyolysis, and hyperlipidemia presents with hyperventilation and foaming at the mouth on presentation. Patient is admitted to ICU for DKA. Plan: Diabetic ketoacidosis - likely 2/2 insufficient insulin from insulin pump vs infection vs pancreatitis - Initial blood glucose: 1173 on admission - Anion gap closed; acidosis resolved; - Decreased Levemir 20u SC HS - Decreased Humalog 6u SC AC - C/w ISS Low - Accucheck ACHS - AM glucose 102; POC Range 57-338 - Hypoglycemia protocol in place - HbA1c: 7.7 -Endocrinology, consulted- Dr. Fenton Leukocytosis- resolved - Likely 2/2 to DKA vs infection - Off of abx per ID - Blood Cx 2/2 negative @ 72H, MRSA not detected, CDiff Toxin negative Elevated lipase - likely 2/2 to pancreatitis, Lipase [id number] on adm w/ prior reported GI symptoms - CT abdomen: negative - Diet advanced to normal diet; Patient tolerating well no GI complaints Elevated troponins - need to rule out cardiac causes - Troponin: 3.25, 2.39, 1.46- downtrending - EKG NSR at 90 bpm, no ischemia - Will go for inpt stress test [facility] - Cardiology consulted, Dr. Escoto Depression - Patient voiced some suicidal ideation at time of admission; however given his lethargic state, unsure if patient is acutely suicidal - Patient reported no suicidal ideation or depression on exam - Does not take any psych medications at home - Psychiatry consulted, Appreciate [facility] Acute Kidney Injury- resolved - Avoid nephrotoxins, IV contrast - Continue to monitor. - Increased to lisinopril 40 QD - Nephrology consulted, Dr. Multani Code status: Patient AAO x 3, signed DNR/DNI form on 05/12/2018 DVT prophylaxis: heparin GI prophylaxis: protonix 40 mg daily Disposition: Med/Surg for stabilization post DKA; Will require psychology clearance for discharge given previous suicidal ideation. Patient seen, examined, and case discussed w/ attending physician Dr. Krysten Hogan DO PGY1 - Internal Medicine [employer] - Pager [phone] <Krysten Hogan R - Last Filed: 05/15/18 09:09> Objective - Vital Signs/Intake and Output Vital Signs (last 24 hours): Temp Pulse Resp BP Pulse Ox 97.4 F L 70 20 144/98 H 98 05/15/18 07:47 05/15/18 07:47 05/15/18 07:47 05/15/18 07:47 05/15/18 07:47 Intake and Output: 05/15/18 05/15/18 06:59 18:59 Intake Total 0 Output Total 750 Balance -750 - Medications Medications: Current Medications Acetaminophen (Tylenol 325mg Tab) 650 mg PO Q6H PRN PRN Reason: Headache Last Admin: 05/12/18 11:22 Dose: 650 mg Aspirin (Ecotrin) 81 mg PO DAILY [facility] Last Admin: 05/14/18 09:25 Dose: 81 mg Atorvastatin Calcium (Lipitor) 40 mg PO DIN [facility] Last Admin: 05/11/18 17:14 Dose: Not Given Dextrose (Dextrose 50% Inj) 0 ml IV STAT PRN; Protocol PRN Reason: Hypoglycemia Protocol Hydralazine HCl (Apresoline) 10 mg IVP Q6H PRN PRN Reason: sbp >160 or DBP >100 Last Admin: 05/13/18 01:46 Dose: 10 mg Dextrose (Dextrose 5% In Water 1000 Ml) 1,000 mls @ 0 mls/hr IV .Q0M PRN; Protocol; Per Protocol PRN Reason: Hypoglycemia Protocol Insulin Detemir (Levemir) 20 unit SC HS [facility] Last Admin: 05/14/18 21:47 Dose: 20 unit Insulin Human Lispro (Humalog Low) 0 units SC ACHS [facility] PRN Reason: Protocol Last Admin: 05/14/18 21:44 Dose: Not Given Insulin Human Lispro (Humalog) 8 units SC AC [facility] Lisinopril (Zestril) 40 mg PO DAILY [facility] Metoprolol Tartrate (Lopressor) 50 mg PO BRKDIN [facility] Last Admin: 05/14/18 17:16 Dose: 50 mg Pantoprazole Sodium (Protonix Ec Tab) 40 mg PO 0600 [facility] Last Admin: 05/15/18 07:07 Dose: Not Given - Labs Labs: 05/14/18 06:00 05/14/18 06:00 PT 16.6 SECONDS (9.4-12.5) H 05/09/18 23:50 INR 1.45 05/09/18 23:50 APTT 70.8 Seconds (25.1-36.5) H 05/13/18 04:10 Attending/Attestation - Attestation I have personally seen and examined this patient.: Yes I have fully participated in the care of the patient.: Yes I have reviewed all pertinent clinical information, including history, physical exam and plan: Yes Notes (Text): Patient seen and examined by me at 10:25AM with resident 05/14/18. Case including HPI, physical exam, and assessment and plan discussed with resident. Agree with above with following additions/corrections. Patient is a 58-year-old male with past medical history significant for insulin dependent diabetes, hypertension, bicuspid aortic valve, rhabdomyolysis, and hyperlipidemia that presented to the emergency room with multiple episodes of nausea, vomiting, diarrhea, hyperventilation, and foaming at the mouth. Patient states he is feeling much better. He states that he did have 2 episodes of watery bowel movements this AM. He is tolerating diet. No chest pain or shortness of breath. No nausea, vomiting, or abdominal pain. No fevers or chills. No headaches or dizziness. No dysuria. Physical exam: Gen: Awake and alert sitting in bed in no acute distress HEENT: Normocephalic, atraumatic. Extraocular muscles intact, pupils equal reactive. No scleral icterus. Oropharynx is pink and moist. No pharyngeal erythema or exudate appreciated. Neck is supple. Cardiovascular: Normal rhythm. Normal S1, S2. Positive systolic murmur. No rubs or gallops appreciated Pulmonary: Normal respiratory effort. No rhonchi, rales, or wheezing appreciated. Gastrointestinal: Soft, nontender, nondistended, positive bowel sounds all 4 quadrants, no guarding. Musculoskeletal: Moves all extremities. no calf tenderness. No edema today. Central nervous system: AAO x 3. CN 2-12 grossly intact. Dermatologic: Skin warm and dry. Assessment and plan: Patient is a 58-year-old male with past medical history significant for insulin dependent diabetes, hypertension, bicuspid aortic valve , rhabdomyolysis, and hyperlipidemia that presented to the emergency room with multiple episodes of nausea, vomiting, diarrhea, hyperventilation, and foaming at the mouth. 1. DKA. Resolved. Transferred out of ICU. Off insulin drip. Endocrinology following, recommendations appreciated. Periods of lower blood sugars over night. Currently on Levemir 30 units at bedtime, Humalog 6 units before meals, and insulin sliding scale. Adjustments per endocrinology team. Continue diabetic diet. Contineu to monitor Accu-Cheks closely. Hemoglobin A1c 7.7 2. SIRS with leukocytosis. Resolved. Blood cultures with no growth. C. difficile negative. Patient status post antibiotics. ID following, recommendations appreciated. 3. Elevated troponins. Likely demand ischemia from DKA and dehydration. Cardiology following, recommendations appreciated. Patient for stress test tomorrow. Continue ASA, lipitor, and metoprolol. 2d echo per cafe worker shows normal chamber size, left ventricular hypertrophy, EF 60-65%, possible bicuspid aortic valve (please see official read for full details). Continue to monitor on telemetry. 4. Pancreatitis. Elevated lipase. Now resolved. Tolerating diet. No nausea, vomiting, or abdominal pain 5. MARCELLE. Resolved. Likely secondary to DKA and dehydration. Nephrology following , recommendations appreciated 6. Hypertension. Continue Metoprolol and lisinopril 7. Depression. Per psychiatry, patient is medically cleared, no intervention needed. 8. Nausea, vomiting, diarrhea on admission. Still with some diarrhea. C-diff negative. CT chest/abd/pelvis on admission per radiologist showed no acute findings related to/accounting for clinical presentation. Continue to monitor. 9. GI/DVT prophylaxis. Protonix and SCDs. 10. Patient is DNR/DNI. Case was discussed in detail with the patient regarding current diagnosis and treatment plan.
--- NOTE | 2018-05-14 13:08 | PN ---
Copied To: Laurel Fenton MD Attending MD: Laurel Fenton MD DATE: 05/14/2018 ENDOCRINOLOGY FOLLOWUP NOTE LOCATION: Room 367. SUBJECTIVE: This is a 58-year-old male with recent uncontrolled type 1 insulin-dependent diabetes, now being followed closely for metabolic management. His glycemic levels are fluctuating related to the variability of his oral intake. As noted, the latest chemistry showed the BUN of 18, sodium 145, potassium 4, chloride 107, CO2 of 30, glucose 102 and creatinine 0.7. His glucose levels overnight range from 78 to 105 mg/dL, it was 291 at bedtime last night. So, at this time, we will lower the basal insulin to Levemir given as 20 units at bedtime to start tonight. We will continue Humalog given as 6 units t.i.d. before meals as ordered. We will sign off from the endocrine and diabetic care at this point in time. Laurel Fenton MD
--- NOTE | 2018-05-14 14:02 | CP.PCM.PN ---
Subjective - Date & Time of Evaluation Date of Evaluation: 05/14/18 Time of Evaluation: 14:00 - Subjective Subjective: Nephrology Consultation Note: Assessment: stable Acute Kidney Injury (N17.9) likely due to severe DKA/hypotension/dehydration: RESOLVED HAGMA with lactic acidosis; Resolved acute pancreatitis Hypokalemia, hypernatremia, hypocalcemia possible sepsis hx of DM, HTN, dyslipidemia, rhabdomyolysis elevated troponins Plan No acute need for renal replacement therapy at this time. serum cr trending down and WNL now Maintain hemodynamics stable. Avoid hypotension. Patient not on ACEI/ARB due to recent MARCELLE. resume lisinopril as BP elevated increased lisinopril to 40 mg supplement lytes as needed check urine analysis, spot protein/creatinine, albumin/creatinine ratio Dose meds/antibiotics for normal GFR. Glycemic control Further work up/management as per primary team Thanks for allowing me to participate in care of your patient. Will follow patient with you. Please call if any Qs. had d/w team Dr Wilian Multani Office: [phone] Chief Complaint; high sugar Reason for consult: Acute Kidney Injury HPI: Pt is a 58 M with hx of diabetes Mellitus ( years), hypertension (years), DKA in past, hyperlipidemia/rhabdomyolysis, presented with complaints of nausea/ vomitting and loose stool for 2 days and found to have severe DKa with MARCELLE. hence renal consult for MARCELLE management. pt feels sick, denies CP/SOB. no nausea/ vomiting now. had loose stool Denies OTC/herbal meds or NSAIDs No recent iodinated contrast exposure. Noted obvious episodes of low BP. ROS: Cardiovascular: No chest pain. Pulmonary: No shortness of breath Gastrointestinal: no abdominal pain No nausea. No vomiting. Genitourinary: No pain while urinating. Denies blood in urine. All other negative except as mentioned in HPI Physical Examination: General Appearance: Comfortable, in no acute respiratory distress, co-operative . better appearing Vitals reviewed and noted as below Head; Atraumatic, normocephalic ENT: no ulcers no thrush. Tongue is midline. Oropharynx: no rash or ulcers. EYES: Pupils are equal, round and reactive to light accommodation. Eye muscles and extraocular movement intact. Sclera is anicteric. Neck; supple no lymphadenopathy, no thyromegaly or bruit Lungs: Normal respiratory rate/effort. Breath sounds bilateral equal and clear Heart: Normal rate. s1s2 normal. No rub or gallop. Extremities: no edema. No varicose veins Neurological: Patient is awake alert and oriented to person, place and time. No focal deficit. Strength bilateral appropriate and equal Skin: Warm and dry. Normal turgor. No rash. Palpitation: Normal elasticity for age Abdomen: Abdomen is soft. Bowel sounds +. There is no abdominal tenderness, no guarding/rigidity no organomegaly Psych: limited insight and normal affect/mood MSK: no joint tenderness or swelling. Digits and nails normal, no deformity : kidney or bladder not palpable Labs/imaging reviewed. Past medical history, past surgical history, family history, social history, allergy reviewed and noted as below Family hx: no hx of CKD. Rest non-contributory imaging for kidney: unremarkable Objective - Vital Signs/Intake and Output Vital Signs (last 24 hours): Temp Pulse Resp BP Pulse Ox 97.8 F 71 18 155/86 H 99 05/14/18 08:06 05/14/18 10:00 05/14/18 08:06 05/14/18 09:25 05/14/18 08:06 - Medications Medications: Current Medications Acetaminophen (Tylenol 325mg Tab) 650 mg PO Q6H PRN PRN Reason: Headache Last Admin: 05/12/18 11:22 Dose: 650 mg Aspirin (Ecotrin) 81 mg PO DAILY [facility] Last Admin: 05/14/18 09:25 Dose: 81 mg Atorvastatin Calcium (Lipitor) 40 mg PO DIN [facility] Last Admin: 05/11/18 17:14 Dose: Not Given Dextrose (Dextrose 50% Inj) 0 ml IV STAT PRN; Protocol PRN Reason: Hypoglycemia Protocol Hydralazine HCl (Apresoline) 10 mg IVP Q6H PRN PRN Reason: sbp >160 or DBP >100 Last Admin: 05/13/18 01:46 Dose: 10 mg Dextrose (Dextrose 5% In Water 1000 Ml) 1,000 mls @ 0 mls/hr IV .Q0M PRN; Protocol; Per Protocol PRN Reason: Hypoglycemia Protocol Insulin Detemir (Levemir) 20 unit SC HS [facility] Insulin Human Lispro (Humalog Low) 0 units SC ACHS [facility] PRN Reason: Protocol Last Admin: 05/14/18 12:04 Dose: Not Given Insulin Human Lispro (Humalog) 6 units SC AC [facility] Last Admin: 05/14/18 12:35 Dose: 6 units Lisinopril (Zestril) 40 mg PO DAILY [facility] Metoprolol Tartrate (Lopressor) 50 mg PO BRKDIN [facility] Last Admin: 05/14/18 08:28 Dose: 50 mg Pantoprazole Sodium (Protonix Ec Tab) 40 mg PO 0600 [facility] Last Admin: 05/14/18 05:27 Dose: 40 mg - Labs Labs: 05/14/18 06:00 05/14/18 06:00 PT 16.6 SECONDS (9.4-12.5) H 05/09/18 23:50 INR 1.45 05/09/18 23:50 APTT 70.8 Seconds (25.1-36.5) H 05/13/18 04:10
--- NOTE | 2018-05-14 15:20 | CP.PCM.PN ---
Subjective - Date & Time of Evaluation Date of Evaluation: 05/14/18 Time of Evaluation: 11:45 - Subjective Subjective: Comfortable, no fevers, no abdominal pain. Objective - Vital Signs/Intake and Output Vital Signs (last 24 hours): Temp Pulse Resp BP Pulse Ox 97.8 F 70 18 155/86 H 99 05/14/18 08:06 05/14/18 09:25 05/14/18 08:06 05/14/18 09:25 05/14/18 08:06 - Medications Medications: Current Medications Acetaminophen (Tylenol 325mg Tab) 650 mg PO Q6H PRN PRN Reason: Headache Last Admin: 05/12/18 11:22 Dose: 650 mg Aspirin (Ecotrin) 81 mg PO DAILY [facility] Last Admin: 05/14/18 09:25 Dose: 81 mg Atorvastatin Calcium (Lipitor) 40 mg PO DIN [facility] Last Admin: 05/11/18 17:14 Dose: Not Given Dextrose (Dextrose 50% Inj) 0 ml IV STAT PRN; Protocol PRN Reason: Hypoglycemia Protocol Hydralazine HCl (Apresoline) 10 mg IVP Q6H PRN PRN Reason: sbp >160 or DBP >100 Last Admin: 05/13/18 01:46 Dose: 10 mg Dextrose (Dextrose 5% In Water 1000 Ml) 1,000 mls @ 0 mls/hr IV .Q0M PRN; Protocol; Per Protocol PRN Reason: Hypoglycemia Protocol Insulin Detemir (Levemir) 30 unit SC HS [facility] Last Admin: 05/13/18 22:06 Dose: 30 units Insulin Human Lispro (Humalog Low) 0 units SC ACHS [facility] PRN Reason: Protocol Last Admin: 05/14/18 08:26 Dose: Not Given Insulin Human Lispro (Humalog) 6 units SC AC [facility] Last Admin: 05/14/18 08:26 Dose: Not Given Lisinopril (Zestril) 20 mg PO DAILY [facility] Last Admin: 05/14/18 09:25 Dose: 20 mg Metoprolol Tartrate (Lopressor) 50 mg PO BRKDIN [facility] Last Admin: 05/14/18 08:28 Dose: 50 mg Pantoprazole Sodium (Protonix Ec Tab) 40 mg PO 0600 [facility] Last Admin: 05/14/18 05:27 Dose: 40 mg - Labs Labs: 05/14/18 06:00 05/14/18 06:00 PT 16.6 SECONDS (9.4-12.5) H 05/09/18 23:50 INR 1.45 05/09/18 23:50 APTT 70.8 Seconds (25.1-36.5) H 05/13/18 04:10 - Constitutional Appears: Chronically Ill - Head Exam Head Exam: NORMAL INSPECTION - Respiratory Exam Respiratory Exam: Decreased Breath Sounds - Cardiovascular Exam Cardiovascular Exam: +S1, +S2 - GI/Abdominal Exam GI & Abdominal Exam: Soft. absent: Tenderness Assessment and Plan - Assessment and Plan (Free Text) Plan: Assessment systemic inflammatory response syndrome, S/P acute encephalopathy and S/P acute renal failure due to acute pancreatitis, presenting with diabetic ketoacidosis, no evidence of infection noted insulin dependent DM HTN bicuspid aortic valve history of rhabdomyolysis dyslipidemia Plan antibiotics have been discontinued and we will continue to monitor off antibiotics since he is at risk for hospital-acquired infections continue to monitor lipase levels and Troponin - GI and Cardio respectively are monitoring the patient HIV test is non-reactive
[2018-05-14] MEDS: Insulin Detemir 100 units/ml Vial (Levemir) SC SCH (21:47)
[2018-05-15] MEDS: Pantoprazole 40 mg EC Tab PO SCH (07:07)
[2018-05-15 07:48] VITALS: RESP 20
--- NOTE | 2018-05-15 08:41 | CP.PCM.PN ---
Subjective - Date & Time of Evaluation Date of Evaluation: 05/15/18 Time of Evaluation: 07:00 - Subjective Subjective: Stable on 3R. No CP or SOB. He feels much better. + ambulation. V/S OK. RSR PE: Lungs: clear Cor.: S1S2 Abd.: soft Ext.: no edema Neuro.: alert BC X2 NG at 5 days. Echo 05/10: Nl LV. Possible bicuspid AV with mild/mod. Stress test done: Normal TM portion. No CP or ischemia. Nuclear scans pending. Objective - Vital Signs/Intake and Output Vital Signs (last 24 hours): Temp Pulse Resp BP Pulse Ox 97.4 F L 70 20 144/98 H 98 05/15/18 07:47 05/15/18 07:47 05/15/18 07:47 05/15/18 07:47 05/15/18 07:47 Intake and Output: 05/15/18 05/15/18 06:59 18:59 Intake Total 0 Output Total 750 Balance -750 - Medications Medications: Current Medications Acetaminophen (Tylenol 325mg Tab) 650 mg PO Q6H PRN PRN Reason: Headache Last Admin: 05/12/18 11:22 Dose: 650 mg Aspirin (Ecotrin) 81 mg PO DAILY [facility] Last Admin: 05/14/18 09:25 Dose: 81 mg Atorvastatin Calcium (Lipitor) 40 mg PO DIN [facility] Last Admin: 05/11/18 17:14 Dose: Not Given Dextrose (Dextrose 50% Inj) 0 ml IV STAT PRN; Protocol PRN Reason: Hypoglycemia Protocol Hydralazine HCl (Apresoline) 10 mg IVP Q6H PRN PRN Reason: sbp >160 or DBP >100 Last Admin: 05/13/18 01:46 Dose: 10 mg Dextrose (Dextrose 5% In Water 1000 Ml) 1,000 mls @ 0 mls/hr IV .Q0M PRN; Protocol; Per Protocol PRN Reason: Hypoglycemia Protocol Insulin Detemir (Levemir) 20 unit SC HS [facility] Last Admin: 05/14/18 21:47 Dose: 20 unit Insulin Human Lispro (Humalog Low) 0 units SC ACHS [facility] PRN Reason: Protocol Last Admin: 05/14/18 21:44 Dose: Not Given Insulin Human Lispro (Humalog) 8 units SC AC [facility] Lisinopril (Zestril) 40 mg PO DAILY [facility] Metoprolol Tartrate (Lopressor) 50 mg PO BRKDIN [facility] Last Admin: 05/14/18 17:16 Dose: 50 mg Pantoprazole Sodium (Protonix Ec Tab) 40 mg PO 0600 [facility] Last Admin: 05/15/18 07:07 Dose: Not Given - Labs Labs: 05/14/18 06:00 05/14/18 06:00 PT 16.6 SECONDS (9.4-12.5) H 05/09/18 23:50 INR 1.45 05/09/18 23:50 APTT 70.8 Seconds (25.1-36.5) H 05/13/18 04:10 Assessment and Plan - Assessment and Plan (Free Text) Assessment: DKA PAF, resolved + trops, probably due to DKA, metabolic derangements, doubt acute PR (Echo shows NL LV, No ECG changes or CP) Acute pancreatitis by elevated lipase HBP Bicuspid AV with mild/mod. DNR/DNI status Plan: Check nuclear scans when completed. OOB/PT As per Psychiatry, ID, Endo., Renal, Palliative Care and medical team. F/U at [facility].
[2018-05-15] MEDS: Insulin Lispro (humaLOG) LOW Coverage SC SCH ×4 (09:51→21:40)
[2018-05-15] MEDS: Insulin Lispro 1 UNITS/0.01 ML SC SCH ×3 (09:55→16:03)
[2018-05-15 10:45] LABS: EOS % 0.8 % (1.5-5.0); GRAN # 3.49 (1.4-6.5); GRAN % 70.1 % (50.0-68.0); HEMOGLOBIN 14.1 g/dL (14.0-18.0); LYMPH # 1.2 (1.2-3.4); LYMPH % 23.3 % (22.0-35.0); MEAN CELL VOLUME 82.8 fl (80.0-105.0); MEAN CORPUSCULAR HEMOGLOBIN 30.3 pg (25.0-35.0); MEAN CORPUSCULAR HGB CONC 36.5 g/dl (31.0-37.0); MONO # 0.3 (0.1-0.6); MONO % 5.8 % (1.0-6.0); RBC 4.66 10^6/uL (3.5-6.1); RED CELL DISTRIBUTION WIDTH 11.7 % (11.5-14.5)
[2018-05-15 11:15] LABS: ALB/GLOB RATIO 1.5 (1.1-1.8); ALBUMIN 3.9 g/dL (3.0-4.8); ALT/SGPT 48 U/L (7-56); AST/SGOT 33 U/L (17-59); BLOOD UREA NITROGEN 18 mg/dL (7-21); CALCIUM 9.2 mg/dL (8.4-10.5); GFR NON-AFRICAN AMERICAN > 60
--- NOTE | 2018-05-15 12:04 | CP.PCM.PN ---
Subjective - Date & Time of Evaluation Date of Evaluation: 05/15/18 Time of Evaluation: 12:03 - Subjective Subjective: Nephrology Consultation Note: Assessment: stable Acute Kidney Injury (N17.9) likely due to severe DKA/hypotension/dehydration: RESOLVED HAGMA with lactic acidosis; Resolved acute pancreatitis Hypokalemia, hypernatremia, hypocalcemia possible sepsis hx of DM, HTN, dyslipidemia, rhabdomyolysis elevated troponins Plan No acute need for renal replacement therapy at this time. serum cr trending down and WNL now Maintain hemodynamics stable. Avoid hypotension. Patient not on ACEI/ARB due to recent MARCELLE. resume lisinopril as BP elevated increased lisinopril to 40 mg supplement lytes as needed check urine analysis, spot protein/creatinine, albumin/creatinine ratio Dose meds/antibiotics for normal GFR. Glycemic control Further work up/management as per primary team d/c planning per primary team pt was advised to f/up in renal clinic 1-2 weeks post d/c Thanks for allowing me to participate in care of your patient. Will follow further as needed basis. Please call if any Qs. had d/w team Dr Wilian Multani Office: [phone] Chief Complaint; high sugar Reason for consult: Acute Kidney Injury HPI: Pt is a 58 M with hx of diabetes Mellitus ( years), hypertension (years), DKA in past, hyperlipidemia/rhabdomyolysis, presented with complaints of nausea/ vomitting and loose stool for 2 days and found to have severe DKa with MARCELLE. hence renal consult for MARCELLE management. pt feels sick, denies CP/SOB. no nausea/ vomiting now. had loose stool Denies OTC/herbal meds or NSAIDs No recent iodinated contrast exposure. Noted obvious episodes of low BP. ROS: feels good. want to leave NOW Cardiovascular: No chest pain. Pulmonary: No shortness of breath Gastrointestinal: no abdominal pain No nausea. No vomiting. Genitourinary: No pain while urinating. Denies blood in urine. All other negative except as mentioned in HPI Physical Examination: General Appearance: Comfortable, in no acute respiratory distress, co-operative . better appearing Vitals reviewed and noted as below Head; Atraumatic, normocephalic ENT: no ulcers no thrush. Tongue is midline. Oropharynx: no rash or ulcers. EYES: Pupils are equal, round and reactive to light accommodation. Eye muscles and extraocular movement intact. Sclera is anicteric. Neck; supple no lymphadenopathy, no thyromegaly or bruit Lungs: Normal respiratory rate/effort. Breath sounds bilateral equal and clear Heart: Normal rate. s1s2 normal. No rub or gallop. Extremities: no edema. No varicose veins Neurological: Patient is awake alert and oriented to person, place and time. No focal deficit. Strength bilateral appropriate and equal Skin: Warm and dry. Normal turgor. No rash. Palpitation: Normal elasticity for age Abdomen: Abdomen is soft. Bowel sounds +. There is no abdominal tenderness, no guarding/rigidity no organomegaly Psych: limited insight and normal affect/mood MSK: no joint tenderness or swelling. Digits and nails normal, no deformity : kidney or bladder not palpable Labs/imaging reviewed. Past medical history, past surgical history, family history, social history, allergy reviewed and noted as below Family hx: no hx of CKD. Rest non-contributory imaging for kidney: unremarkable Objective - Vital Signs/Intake and Output Vital Signs (last 24 hours): Temp Pulse Resp BP Pulse Ox 97.4 F L 70 20 144/98 H 98 05/15/18 07:47 05/15/18 09:55 05/15/18 07:47 05/15/18 09:55 05/15/18 07:47 Intake and Output: 05/15/18 05/15/18 06:59 18:59 Intake Total 0 Output Total 750 Balance -750 - Medications Medications: Current Medications Acetaminophen (Tylenol 325mg Tab) 650 mg PO Q6H PRN PRN Reason: Headache Last Admin: 05/12/18 11:22 Dose: 650 mg Aspirin (Ecotrin) 81 mg PO DAILY [facility] Last Admin: 05/15/18 09:56 Dose: 81 mg Atorvastatin Calcium (Lipitor) 40 mg PO DIN [facility] Last Admin: 05/11/18 17:14 Dose: Not Given Dextrose (Dextrose 50% Inj) 0 ml IV STAT PRN; Protocol PRN Reason: Hypoglycemia Protocol Hydralazine HCl (Apresoline) 10 mg IVP Q6H PRN PRN Reason: sbp >160 or DBP >100 Last Admin: 05/13/18 01:46 Dose: 10 mg Dextrose (Dextrose 5% In Water 1000 Ml) 1,000 mls @ 0 mls/hr IV .Q0M PRN; Protocol; Per Protocol PRN Reason: Hypoglycemia Protocol Insulin Detemir (Levemir) 20 unit SC HS [facility] Last Admin: 05/14/18 21:47 Dose: 20 unit Insulin Human Lispro (Humalog Low) 0 units SC ACHS [facility] PRN Reason: Protocol Last Admin: 05/15/18 11:26 Dose: 3 units Insulin Human Lispro (Humalog) 8 units SC AC [facility] Last Admin: 05/15/18 11:27 Dose: 8 units Lisinopril (Zestril) 40 mg PO DAILY [facility] Last Admin: 05/15/18 11:27 Dose: 40 mg Metoprolol Tartrate (Lopressor) 50 mg PO BRKDIN [facility] Last Admin: 05/15/18 09:55 Dose: 50 mg Pantoprazole Sodium (Protonix Ec Tab) 40 mg PO 0600 [facility] Last Admin: 05/15/18 07:07 Dose: Not Given - Labs Labs: 05/15/18 10:35 05/15/18 10:35 PT 16.6 SECONDS (9.4-12.5) H 05/09/18 23:50 INR 1.45 05/09/18 23:50 APTT 70.8 Seconds (25.1-36.5) H 05/13/18 04:10
--- NOTE | 2018-05-15 12:17 | CP.PCM.PN ---
Subjective - Date & Time of Evaluation Date of Evaluation: 05/15/18 Time of Evaluation: 11:20 - Subjective Subjective: No chest pain, for stress test, no fevers, no abdominal pain. Objective - Vital Signs/Intake and Output Vital Signs (last 24 hours): Temp Pulse Resp BP Pulse Ox 97.4 F L 70 20 144/98 H 98 05/15/18 07:47 05/15/18 07:47 05/15/18 07:47 05/15/18 07:47 05/15/18 07:47 Intake and Output: 05/15/18 05/15/18 06:59 18:59 Intake Total 0 Output Total 750 Balance -750 - Medications Medications: Current Medications Acetaminophen (Tylenol 325mg Tab) 650 mg PO Q6H PRN PRN Reason: Headache Last Admin: 05/12/18 11:22 Dose: 650 mg Aspirin (Ecotrin) 81 mg PO DAILY [facility] Last Admin: 05/14/18 09:25 Dose: 81 mg Atorvastatin Calcium (Lipitor) 40 mg PO DIN [facility] Last Admin: 05/11/18 17:14 Dose: Not Given Dextrose (Dextrose 50% Inj) 0 ml IV STAT PRN; Protocol PRN Reason: Hypoglycemia Protocol Hydralazine HCl (Apresoline) 10 mg IVP Q6H PRN PRN Reason: sbp >160 or DBP >100 Last Admin: 05/13/18 01:46 Dose: 10 mg Dextrose (Dextrose 5% In Water 1000 Ml) 1,000 mls @ 0 mls/hr IV .Q0M PRN; Protocol; Per Protocol PRN Reason: Hypoglycemia Protocol Insulin Detemir (Levemir) 20 unit SC HS [facility] Last Admin: 05/14/18 21:47 Dose: 20 unit Insulin Human Lispro (Humalog Low) 0 units SC ACHS [facility] PRN Reason: Protocol Last Admin: 05/14/18 21:44 Dose: Not Given Insulin Human Lispro (Humalog) 8 units SC AC [facility] Lisinopril (Zestril) 40 mg PO DAILY [facility] Metoprolol Tartrate (Lopressor) 50 mg PO BRKDIN [facility] Last Admin: 05/14/18 17:16 Dose: 50 mg Pantoprazole Sodium (Protonix Ec Tab) 40 mg PO 0600 [facility] Last Admin: 05/15/18 07:07 Dose: Not Given - Labs Labs: 05/14/18 06:00 05/14/18 06:00 PT 16.6 SECONDS (9.4-12.5) H 05/09/18 23:50 INR 1.45 05/09/18 23:50 APTT 70.8 Seconds (25.1-36.5) H 05/13/18 04:10 - Constitutional Appears: No Acute Distress, Chronically Ill - Respiratory Exam Respiratory Exam: Decreased Breath Sounds - Cardiovascular Exam Cardiovascular Exam: +S1, +S2 Assessment and Plan - Assessment and Plan (Free Text) Plan: Assessment S/P systemic inflammatory response syndrome, S/P acute encephalopathy and S/P acute renal failure due to acute pancreatitis, presenting with diabetic ketoacidosis, no evidence of infection noted insulin dependent DM HTN bicuspid aortic valve history of rhabdomyolysis dyslipidemia Plan antibiotics have been discontinued and we will continue to monitor off antibiotics since he is at risk for healthcare-associated infections continue to monitor lipase levels and Troponin - GI and Cardio respectively are monitoring the patient - follow up stress test results HIV test is non-reactive
--- NOTE | 2018-05-15 14:37 | CP.PCM.PN ---
Subjective - Date & Time of Evaluation Date of Evaluation: 05/15/18 Time of Evaluation: 02:00 - Subjective Subjective: Endocrinology progress note: Patient seen and examined at bedside. No acute events overnight. He states that he feels well and getting ready to go home. Sugars ranging 276-422. Patient did speak to a strike planning applications earlier today and went over the insulin pump with him. No complaints. 12 point ROS performed and negative other than stated above. Objective - Vital Signs/Intake and Output Vital Signs (last 24 hours): Temp Pulse Resp BP Pulse Ox 97.4 F L 70 20 144/98 H 98 05/15/18 07:47 05/15/18 09:55 05/15/18 07:47 05/15/18 09:55 05/15/18 07:47 Intake and Output: 05/15/18 05/15/18 06:59 18:59 Intake Total 0 Output Total 750 Balance -750 - Medications Medications: Current Medications Acetaminophen (Tylenol 325mg Tab) 650 mg PO Q6H PRN PRN Reason: Headache Last Admin: 05/12/18 11:22 Dose: 650 mg Aspirin (Ecotrin) 81 mg PO DAILY [facility] Last Admin: 05/15/18 09:56 Dose: 81 mg Atorvastatin Calcium (Lipitor) 40 mg PO DIN [facility] Last Admin: 05/11/18 17:14 Dose: Not Given Dextrose (Dextrose 50% Inj) 0 ml IV STAT PRN; Protocol PRN Reason: Hypoglycemia Protocol Hydralazine HCl (Apresoline) 10 mg IVP Q6H PRN PRN Reason: sbp >160 or DBP >100 Last Admin: 05/13/18 01:46 Dose: 10 mg Dextrose (Dextrose 5% In Water 1000 Ml) 1,000 mls @ 0 mls/hr IV .Q0M PRN; Protocol; Per Protocol PRN Reason: Hypoglycemia Protocol Insulin Detemir (Levemir) 20 unit SC HS [facility] Last Admin: 05/14/18 21:47 Dose: 20 unit Insulin Human Lispro (Humalog Low) 0 units SC ACHS [facility] PRN Reason: Protocol Last Admin: 05/15/18 11:26 Dose: 3 units Insulin Human Lispro (Humalog) 8 units SC AC [facility] Last Admin: 05/15/18 11:27 Dose: 8 units Lisinopril (Zestril) 40 mg PO DAILY [facility] Last Admin: 05/15/18 11:27 Dose: 40 mg Metoprolol Tartrate (Lopressor) 50 mg PO BRKDIN [facility] Last Admin: 05/15/18 09:55 Dose: 50 mg Pantoprazole Sodium (Protonix Ec Tab) 40 mg PO 0600 [facility] Last Admin: 05/15/18 07:07 Dose: Not Given - Labs Labs: 05/15/18 10:35 05/15/18 10:35 PT 16.6 SECONDS (9.4-12.5) H 05/09/18 23:50 INR 1.45 05/09/18 23:50 APTT 70.8 Seconds (25.1-36.5) H 05/13/18 04:10 - Constitutional Appears: No Acute Distress - Head Exam Head Exam: ATRAUMATIC, NORMOCEPHALIC - Eye Exam Eye Exam: EOMI - ENT Exam ENT Exam: Mucous Membranes Moist - Respiratory Exam Respiratory Exam: Clear to Ausculation Bilateral. absent: Wheezes - Cardiovascular Exam Cardiovascular Exam: REGULAR RHYTHM, +S1, +S2 - GI/Abdominal Exam GI & Abdominal Exam: Soft. absent: Tenderness - Extremities Exam Extremities Exam: absent: Calf Tenderness, Pedal Edema - Neurological Exam Neurological Exam: Alert, Awake, Oriented x3 - Psychiatric Exam Psychiatric exam: Normal Mood - Skin Skin Exam: Dry, Warm Assessment and Plan - Assessment and Plan (Free Text) Assessment: 58-year-old male with past medical history of insulin dependent diabetes on an insulin pump at home presented with DKA and severe dehydration. Patient currently being seen for metabolic management. Carb consistent diet Continue long acting basal Levemir 20 units at bedtime and basal Humalog 6 units before meals while in the hospital. Patient will go home on his own insulin pump. Continue Humalog sliding scale at low dose as protocol Replete electrolytes as needed Continue serial fingersticks Case and plan was reviewed and discussed with Dr. Fenton. Unruly Katz, PGY 3
[2018-05-15] MEDS ORDERED: Bacitracin 500 Units/gm Oint Foilpak UD TOP STA (15:07)
--- NOTE | 2018-05-15 21:20 | CARD ---
APPROVED REPORT Date of service: 05/15/2018 Protocol: ZACH Test Type: Sestamibi Stress Test Attending Physician: Dr. Doug Escoto Referring Physician: Dr. Michelle Spears Test Indications: PAF, + trops with DKA. Height:5 ft 8 in Weight:185lbs Medications: Aspirin, Hydralazine, Insulin, Lisinopril, Lopressor, Protonix Medical History: 58 y/o diabetic male with recent DKA, PAF and + trops. Target HR: 164 bpm Resting ECG: RSR Resting Heart Rate: 73 bpm Resting Blood Pressure: 130/80mmHg Submaximum (85%): 139 bpm POST EXERCISE Reason for Termination: Fatigue, Dyspnea Target HR: No Max HR: 157 bpm 95% of Maximum Predicted HR: 164 bpm Exercise duration: 12:00 min:sec, 4 Stage Exercise capacity: 13.4METs Max Blood Pressure: 164/70mmHg Blood Pressure response to exercise: Normal Heart Rate response to exercise: Normal Chest Pain: No, None Angina index: 0 Arrhythmia: No, None ST Change: No, None Deviation: 0 mm TEST SUMMARY [id number]/.0. [id number]. EXERCISESTAGE [id number]/80.0. EXERCISESTAGE [id number]. EXERCISESTAGE 303:[id number]/70.0. EXERCISESTAGE 403:[id number]:03 Contrast agent administered [id number]/.0. INTERPRETATION Stress EKG Conclusion: Symptom limited stress test which was negative for chest pain, ischemia and arrhythmia. Normal functional capacity. Nuclear scans pending. Signed by Doug Escoto Electronically Approved: 05/15/2018 11:53:15 EXAM: Myocardial Perfusion REST/STRESS Stress Test Type: Exercise Treadmill Imaging Protocol Rest Spect myocardial perfusion imaging was performed in supine position 45 minutes following the injection of 10.3 mCi of Tc-99 Myoview. At peak stress, the patient was injected intravenously with 30.8mCi of Tc-99 tetrofosmin after an exercise time of 12 minutes and 00 seconds. Gated Stress Spect was performed 65 minutes after intravenous Tc-99 Myoview injection. The images were gated to evaluate regional wall motion and calculate ventricular ejection fraction.Images were reconstructed using backfilter projection method in short horizontal and verticle long axis. Spect slices were generated. LV Perfusion The quality of the study is good. The left ventricle is normal in size. The right ventricle is unremarkable. The lung uptake is normal. The distribution of tracer reveals an area of mildly decreased perfusion in the distal anteroseptal/ apical wall on the stress study. The remainder of the LV myocardium is unremarkable. The rest myocardial perfusion study shows no significant change. Wall Motion Wall motion study shows good contractility of the left ventricle. LVEF = 78%. Conclusion 1. Probably abnormal SPECT myocardial perfusion study. 2. Fixed, small, distal anteroseptal/ defect is suspicious previous myocardial injury. 3. Normal gated wall motion of the left ventricle.
[2018-05-15] MEDS: Insulin Detemir 100 units/ml Vial (Levemir) SC SCH (21:47)
--- NOTE | 2018-05-15 22:46 | CP.PCM.PN ---
<Nawaf Hogan - Last Filed: 05/15/18 22:47> Subjective - Date & Time of Evaluation Date of Evaluation: 05/15/18 Time of Evaluation: 22:44 - Subjective Subjective: Nawaf Hogan DO PGY1 - Internal Medicine [employer] Equipment Tender - Hospital Progress Note patient was seen and examined at bedside this AM after stress test. NO acute events reported overnight. No complaints voiced by patient this AM. Patient underwent exercise stress test earlier this AM. Denies any CP, Palp, SOB, Cough, Abd Pain, N/V/D/C, urinary complaints. Objective - Vital Signs/Intake and Output Vital Signs (last 24 hours): Temp Pulse Resp BP Pulse Ox 97.4 F L 69 20 144/98 H 98 05/15/18 07:47 05/15/18 14:00 05/15/18 07:47 05/15/18 09:55 05/15/18 07:47 Intake and Output: 05/15/18 05/16/18 18:59 06:59 Intake Total 480 Balance 480 - Medications Medications: Current Medications Acetaminophen (Tylenol 325mg Tab) 650 mg PO Q6H PRN PRN Reason: Headache Last Admin: 05/12/18 11:22 Dose: 650 mg Aspirin (Ecotrin) 81 mg PO DAILY [facility] Last Admin: 05/15/18 09:56 Dose: 81 mg Atorvastatin Calcium (Lipitor) 40 mg PO DIN [facility] Last Admin: 05/11/18 17:14 Dose: Not Given Dextrose (Dextrose 50% Inj) 0 ml IV STAT PRN; Protocol PRN Reason: Hypoglycemia Protocol Hydralazine HCl (Apresoline) 10 mg IVP Q6H PRN PRN Reason: sbp >160 or DBP >100 Last Admin: 05/13/18 01:46 Dose: 10 mg Dextrose (Dextrose 5% In Water 1000 Ml) 1,000 mls @ 0 mls/hr IV .Q0M PRN; Protocol; Per Protocol PRN Reason: Hypoglycemia Protocol Insulin Detemir (Levemir) 20 unit SC HS [facility] Last Admin: 05/15/18 21:47 Dose: 20 unit Insulin Human Lispro (Humalog Low) 0 units SC ACHS [facility] PRN Reason: Protocol Last Admin: 05/15/18 21:40 Dose: Not Given Insulin Human Lispro (Humalog) 8 units SC AC [facility] Last Admin: 05/15/18 16:03 Dose: 8 units Lisinopril (Zestril) 40 mg PO DAILY [facility] Last Admin: 05/15/18 11:27 Dose: 40 mg Metoprolol Tartrate (Lopressor) 50 mg PO BRKDIN [facility] Last Admin: 05/15/18 17:02 Dose: 50 mg Pantoprazole Sodium (Protonix Ec Tab) 40 mg PO 0600 [facility] Last Admin: 05/15/18 07:07 Dose: Not Given - Labs Labs: 05/15/18 10:35 05/15/18 10:35 PT 16.6 SECONDS (9.4-12.5) H 05/09/18 23:50 INR 1.45 05/09/18 23:50 APTT 70.8 Seconds (25.1-36.5) H 05/13/18 04:10 Physical Exam - Constitutional Appears: No Acute Distress, Patient appears comfortable - Head Exam Head Exam: ATRAUMATIC, NORMAL INSPECTION - Eye Exam Eye Exam: Normal appearance - ENT Exam ENT Exam: Mucous Membranes Moist - Respiratory Exam Respiratory Exam: Clear to Ausculation Bilateral. absent: Rales, Rhonchi, Wheezes, Respiratory Distress - Cardiovascular Exam Cardiovascular Exam: RRR, +Systolic Murmur at aortic position 3/6 - GI/Abdominal Exam GI & Abdominal Exam: Soft, Normal Bowel Sounds. absent: Tenderness - Extremities Exam Extremities Exam: Minimal LE edema BL - Neurological Exam Neurological Exam: Alert, Awake, Oriented x3 - Psychiatric Exam Psychiatric exam: Normal Affect, Normal Mood - Skin Skin Exam: Dry, Intact, Normal Color, Warm Assessment and Plan - Assessment and Plan (Free Text) Assessment: 58 year old male with past medical history of diabetes with insulin pump, hypertension, bicuspid aortic valve, rhabdomyolysis, and hyperlipidemia admitted for DKA. Patient was transferred out of ICU to med/surg for stabilization post DKA. Plan: Diabetic ketoacidosis - likely 2/2 insufficient insulin from insulin pump vs infection vs pancreatitis - Initial blood glucose: 1173 on admission - Anion gap closed; acidosis resolved; - C/w Levemir 20u SC HS - C/w Humalog 8u SC AC - C/w ISS Low - Accucheck ACHS - Hypoglycemia protocol in place - HbA1c: 7.7 -Endocrinology Following- Dr. Fenton Elevated troponins - need to rule out cardiac causes - Troponin: 3.25, 2.39, 1.46- downtrending while patient was initially admitted in ICU - EKG NSR at 90 bpm, no ischemia - Underwent Exercise Stress test; Abnl reading - Small distal anteroseptal defect suspicious for previous SD - Pending cardiology reccs from read - Cardiology consulted, Dr. Escoto Leukocytosis- resolved - Likely 2/2 to DKA vs infection - Off of abx per ID - Blood Cx 2/2 negative @ 72H, MRSA not detected, CDiff Toxin negative Elevated lipase - likely 2/2 to pancreatitis, Lipase 4784 on adm w/ prior reported GI symptoms - CT abdomen: negative - Diet advanced to normal diet; Patient tolerating well no GI complaints Depression - Patient voiced some suicidal ideation at time of admission; however given his lethargic state, unsure if patient is acutely suicidal - Patient reported no suicidal ideation or depression on exam - Does not take any psych medications at home - Psychiatry consulted, Appreciate reccs Acute Kidney Injury- resolved - Avoid nephrotoxins, IV contrast - Continue to monitor. - C/w lisinopril 40 QD - Nephrology consulted, Dr. Multani Code status: Patient AAO x 3, signed DNR/DNI form on 05/12/2018 DVT prophylaxis: heparin GI prophylaxis: protonix 40 mg daily Disposition: Med/Surg for stabilization post DKA; Will require psychology clearance for discharge given previous suicidal ideation. Patient seen, examined, and case discussed w/ attending physician Dr. Krysten Hogan DO PGY1 - Internal Medicine [employer] Equipment Tender - Pager [phone] <Krysten Hogan R - Last Filed: 05/17/18 20:27> Objective - Vital Signs/Intake and Output Vital Signs (last 24 hours): Temp Pulse Resp BP Pulse Ox 97.6 F 71 20 145/92 H 97 05/16/18 08:21 05/16/18 08:21 05/16/18 08:21 05/16/18 08:21 05/16/18 08:21 - Labs Labs: 05/16/18 06:30 05/16/18 06:30 PT 16.6 SECONDS (9.4-12.5) H 05/09/18 23:50 INR 1.45 05/09/18 23:50 APTT 70.8 Seconds (25.1-36.5) H 05/13/18 04:10 Attending/Attestation - Attestation I have personally seen and examined this patient.: Yes I have fully participated in the care of the patient.: Yes I have reviewed all pertinent clinical information, including history, physical exam and plan: Yes Notes (Text): Patient seen and examined by me at 10:40AM with resident 05/15/18. Case including HPI, physical exam, and assessment and plan discussed with resident. Agree with above with following additions/corrections. Patient states he is feeling fine. States [facility]. Still with some watery bowel movements. He is tolerating diet. No chest pain or shortness of breath. No nausea, vomiting, or abdominal pain. No fevers or chills. No headaches or dizziness. No dysuria. Physical exam: Gen: Awake and alert sitting in bed in no acute distress HEENT: Normocephalic, atraumatic. Extraocular muscles intact, pupils equal reactive. No scleral icterus. Oropharynx is pink and moist. No pharyngeal erythema or exudate appreciated. Neck is supple. Cardiovascular: Normal rhythm. Normal S1, S2. Positive systolic murmur. No rubs or gallops appreciated Pulmonary: Normal respiratory effort. No rhonchi, rales, or wheezing appreciated. Gastrointestinal: Soft, nontender, nondistended, positive bowel sounds all 4 quadrants, no guarding. Musculoskeletal: Moves all extremities. no calf tenderness. No edema today. Central nervous system: AAO x 3. CN 2-12 grossly intact. Dermatologic: Skin warm and dry. Assessment and plan: Patient is a 58-year-old male with past medical history significant for insulin dependent diabetes, hypertension, bicuspid aortic valve , rhabdomyolysis, and hyperlipidemia that presented to the emergency room with multiple episodes of nausea, vomiting, diarrhea, hyperventilation, and foaming at the mouth. 1. DKA. Resolved. Transferred out of ICU. Off insulin drip. Endocrinology following, recommendations appreciated. Levemir and Humalog dosing adjusted. Continue insulin sliding scale. Continue adjustments per endocrinology team. Continue diabetic diet. Continue to monitor Accu-Cheks closely. Hemoglobin A1c 7.7 2. SIRS with leukocytosis. Resolved. Blood cultures with no growth. C. difficile negative. Patient status post antibiotics. ID following, recommendations appreciated. 3. Elevated troponins. Likely demand ischemia from DKA and dehydration. Cardiology following, recommendations appreciated. S/P stress test. Nuclear read pending. Continue ASA, lipitor, and metoprolol. 2d echo per machine set up operator shows normal chamber size, left ventricular hypertrophy, EF 60-65%, possible bicuspid aortic valve (please see official read for full details). Continue to monitor on telemetry. 4. Pancreatitis. Elevated lipase. Now resolved. Tolerating diet. No nausea, vomiting, or abdominal pain 5. MARCELLE. Resolved. Likely secondary to DKA and dehydration. Nephrology following , recommendations appreciated 6. Hypertension. Continue Metoprolol and lisinopril 7. Depression. Per psychiatry, patient is medically cleared, no intervention needed. 8. Nausea, vomiting, diarrhea on admission. Still with some diarrhea. C-diff negative. CT chest/abd/pelvis on admission per radiologist showed no acute findings related to/accounting for clinical presentation. Continue to monitor. 9. GI/DVT prophylaxis. Protonix and SCDs. 10. Patient is DNR/DNI. Case was discussed in detail with the patient regarding current diagnosis and treatment plan.
[2018-05-16] MEDS: Pantoprazole 40 mg EC Tab PO SCH (06:50)
[2018-05-16 06:55] LABS: BASO # 0.01 K/mm3 (0.0-2.0); BASO % 0.2 % (0.0-3.0); EOS # 0.1 (0.0-0.7); EOS % 1.5 % (1.5-5.0); GRAN # 2.74 (1.4-6.5); GRAN % 51.8 % (50.0-68.0); HEMOGLOBIN 12.7 g/dL (14.0-18.0); LYMPH # 1.8 (1.2-3.4); LYMPH % 34.8 % (22.0-35.0); MEAN CELL VOLUME 82.1 fl (80.0-105.0); MEAN CORPUSCULAR HEMOGLOBIN 29.5 pg (25.0-35.0); MEAN CORPUSCULAR HGB CONC 35.9 g/dl (31.0-37.0); MEAN PLATELET VOLUME 9.6 fl (7.0-11.0); MONO # 0.6 (0.1-0.6); MONO % 11.7 % (1.0-6.0); RBC 4.31 10^6/uL (3.5-6.1); RED CELL DISTRIBUTION WIDTH 11.7 % (11.5-14.5); WHITE BLOOD COUNT 5.3 10^3/ul (4.5-11.0)
[2018-05-16 07:10] LABS: ALB/GLOB RATIO 1.6 (1.1-1.8); ALBUMIN 3.8 g/dL (3.0-4.8); ALT/SGPT 52 U/L (7-56); AST/SGOT 31 U/L (17-59); BLOOD UREA NITROGEN 20 mg/dL (7-21); CALCIUM 9.4 mg/dL (8.4-10.5); GFR NON-AFRICAN AMERICAN > 60
--- NOTE | 2018-05-16 07:19 | CON ---
Copied To: Mya Clarke MD Attending MD: Mya Clarke MD DATE: 05/15/2018 HISTORY OF PRESENT ILLNESS: Shortly, the patient is a 58-year-old male, multiple medical issues including insulin-dependent diabetes, on insulin pump at home, presented with diabetic ketoacidosis and severe dehydration. Initially, the patient was saying that he requires ICU admission. The patient was seen by Dr. Acosta. Dr. Acosta signed off. Medical team reconsulted this ad writer because the patient has history of depression, history of PTSD. The patient is a and medical team was planning to discharge the patient. The patient was seen and examined. The patient presented to be alert and oriented. At times, the patient could be disrespectful and cursing in front of this ad writer. The patient seems to have either antisocial personality or history of trauma as well as possible borderline personality disorder. The patient reported that he feels fine. He has future-oriented plans to start working. Otherwise, he will be homeless. The patient reported that he sees psychiatrist at [facility] in [place] and the patient is seeing Dr. Alan on monthly basis. The patient reported at present moment he does not feel depressed. He denied any thoughts of harming himself or others. The patient denied hearing voices. Denied seeing things. Denied paranoid ideation. The patient reported that he has supportive friends. The patient reported that he is willing to be discharged and his outpatient provider to adjust his medication. Collateral information was obtained from the medical staff. The patient does not exhibit any aggressive or agitated behavior. MEDICATIONS: Reviewed. The patient is on aspirin, Tylenol, also atorvastatin, Levemir, Humalog, Zestril, Lopressor. No psychotropic medications. LABORATORY DATA: Reviewed. Seems to be stable. WBC is 50, at the time of admission it was 35.7. Hemoglobin and hematocrit 14.1 and 38.6. Glucose still is between 279 and 422. MENTAL STATUS EXAMINATION: The patient presented to be alert and oriented. Somewhat pleasant, socially appropriate, intermittent eye contacts. Speech was somewhat loud, but not pressured. Mood described, I am feeling fine. Affect was constricted, but reactive. Thought process seems to be coherent and goal direct. Thought content, the patient denied visual, auditory or tactile hallucinations. Denied paranoid ideation. The patient does not present to be psychotic. Insight and judgment seems to be fair. Impulses are well controlled. IMPRESSION: This ad writer is not sure what the patient was diagnosed with, most likely bipolar spectrum. The patient has strong antisocial or borderline personality trait. The patient had trauma in the past. The patient is a . PLAN: There is no need to initiate psychotropic medications at present moment. The patient does not have any agitation. No aggression or angry outburst. The patient has follow up appointment with Dr. Alan at [facility]. Phone number [phone]. residential care facility manager was advised to contact Dr. Alan and let him know that the patient was discharged from the hospital. Meanwhile, the patient pose no imminent danger to self or others. This ad writer will sign off. Discussed with attending, Dr. Hogan. Thank you very much for letting me participate in the care of your patient. Should you have any questions, give me a call back. Mya Clarke MD
[2018-05-16 08:21] VITALS: BP 145/92; PULSE 71; TEMP 97.6; O2SAT 97
--- NOTE | 2018-05-16 19:54 | CP.PCM.DIS ---
<Hogan,Nawaf - Last Filed: 05/17/18 11:59> Provider - Provider Date of Admission: 05/10/18 02:59 Attending physician: Michelle Spears MD Primary care physician: Dr. Spears Consults: Endo: Dr. Fenton Cardio: Dr. Escoto ID: Dr. Holman Nephro: Dr. Multani Psych: Dr. Clarke Palliative: Dr. Queen Time Spent in preparation of Discharge (in minutes): 40 Diagnosis - Discharge Diagnosis (1) Diabetic ketoacidosis Status: Acute Priority: High (2) MARCELLE (acute kidney injury) Status: Acute Priority: High (3) SIRS (systemic inflammatory response syndrome) Status: Acute Priority: High (4) Type 1 diabetes Status: Chronic Priority: High (5) Paroxysmal A-fib Status: Acute Priority: Low Hospital Course - Lab Results Lab Results: Micro Results 05/10/18 06:40 Nose MRSA Culture (Admit) - Final MRSA NOT DETECTED 05/10/18 22:31 Stool C. difficile Antigen & Toxin A,B (M - Final Most Recent Lab Values WBC 5.3 10^3/ul (4.5-11.0) 05/16/18 06:30 RBC 4.31 10^6/uL (3.5-6.1) 05/16/18 06:30 Hgb 12.7 g/dL (14.0-18.0) L 05/16/18 06:30 Hct 35.4 % (42.0-52.0) L 05/16/18 06:30 MCV 82.1 fl (80.0-105.0) 05/16/18 06:30 MCH 29.5 pg (25.0-35.0) 05/16/18 06:30 MCHC 35.9 g/dl (31.0-37.0) 05/16/18 06:30 RDW 11.7 % (11.5-14.5) 05/16/18 06:30 Plt Count 254 10^3/uL (120.0-450.0) 05/16/18 06:30 MPV 9.6 fl (7.0-11.0) 05/16/18 06:30 Gran % 51.8 % (50.0-68.0) 05/16/18 06:30 Lymph % (Auto) 34.8 % (22.0-35.0) 05/16/18 06:30 [place] % (Auto) 11.7 % (1.0-6.0) H 05/16/18 06:30 Eos % (Auto) 1.5 % (1.5-5.0) 05/16/18 06:30 Baso % (Auto) 0.2 % (0.0-3.0) 05/16/18 06:30 Gran # 2.74 (1.4-6.5) 05/16/18 06:30 Lymph # (Auto) 1.8 (1.2-3.4) 05/16/18 06:30 [place] # (Auto) 0.6 (0.1-0.6) 05/16/18 06:30 Eos # (Auto) 0.1 (0.0-0.7) 05/16/18 06:30 Baso # (Auto) 0.01 K/mm3 (0.0-2.0) 05/16/18 06:30 Neutrophils % (Manual) 83 % (50.0-70.0) H 05/10/18 05:35 Band Neutrophils % 7 % (0-2) H 05/10/18 05:35 Lymphocytes % (Manual) 4 % (22.0-35.0) L 05/10/18 05:35 Monocytes % (Manual) 6 % (1.0-6.0) 05/10/18 05:35 Differential Comment See pathology report 05/10/18 05:35 Platelet Evaluation Normal (NORMAL) 05/10/18 05:35 PT 16.6 SECONDS (9.4-12.5) H 05/09/18 23:50 INR 1.45 05/09/18 23:50 APTT 70.8 Seconds (25.1-36.5) H 05/13/18 04:10 pCO2 24 mm/Hg (35-45) L 05/10/18 08:44 pO2 117.0 mm/Hg (80-100) H 05/10/18 08:44 HCO3 12.4 mmol/L (21-28) L 05/10/18 08:44 ABG pH 7.32 (7.35-7.45) L 05/10/18 08:44 ABG Total CO2 13.1 mmol.L (22-28) L 05/10/18 08:44 ABG O2 Saturation 99.2 % (95-98) H 05/10/18 08:44 ABG Base Excess -11.8 mmol/L (-2.0-3.0) L 05/10/18 08:44 ABG Potassium 3.6 mmol/L (3.6-5.2) 05/10/18 08:44 VBG pH 7.12 (7.32-7.43) L* 05/10/18 05:35 VBG pCO2 26.0 (40-60) L 05/10/18 05:35 VBG HCO3 8.5 mmol/l (21-28) L 05/10/18 05:35 VBG Total CO2 9.3 mmol.L (22-28) L 05/10/18 05:35 VBG O2 Sat (Calc) 76.4 % (40-65) H 05/10/18 05:35 VBG Base Excess -19.4 mmol/L (0.0-2.0) L 05/10/18 05:35 VBG Potassium 4.5 mmol/L (3.6-5.2) 05/10/18 05:35 Sodium 135.0 mmol/L (132-148) 05/10/18 08:44 Chloride 103.0 mmol/L (98-107) 05/10/18 08:44 Glucose 613 mg/dl (75-110) H* 05/10/18 08:44 Lactate 1.9 mmol/L (0.7-2.1) 05/10/18 08:44 FiO2 28.0 % 05/10/18 08:44 Sodium 139 mmol/L (132-148) 05/16/18 06:30 Potassium 4.0 mmol/L (3.6-5.0) 05/16/18 06:30 Chloride 102 mmol/L (98-107) 05/16/18 06:30 Carbon Dioxide 27 mmol/L (21-33) 05/16/18 06:30 Anion Gap 14 (10-20) 05/16/18 06:30 BUN 20 mg/dL (7-21) 05/16/18 06:30 Creatinine 0.8 mg/dl (0.8-1.5) 05/16/18 06:30 Est GFR ( Amer) > 60 05/16/18 06:30 Est GFR (Non-Af Amer) > 60 05/16/18 06:30 POC Glucose (mg/dL) 245 mg/dL (65-110) H 05/16/18 07:35 Random Glucose 253 mg/dL (70-110) H 05/16/18 06:30 Hemoglobin A1c 7.7 % (4.2-6.5) H 05/10/18 07:00 Calcium 9.4 mg/dL (8.4-10.5) 05/16/18 06:30 Phosphorus 4.2 mg/dL (2.5-4.5) 05/14/18 06:00 Magnesium 2.2 mg/dL (1.7-2.2) 05/14/18 06:00 Total Bilirubin 0.5 mg/dL (0.2-1.3) 05/16/18 06:30 AST 31 U/L (17-59) 05/16/18 06:30 ALT 52 U/L (7-56) 05/16/18 06:30 Alkaline Phosphatase 79 U/L (38-126) 05/16/18 06:30 Total Creatine Kinase 417 U/L (35-230) H 05/11/18 06:00 CK-MB (CK-2) 9.4 ng/mL (0.0-3.6) H 05/11/18 06:00 CK-MB (CK-2) % 2.3 % (2.5-3.0) L 05/11/18 06:00 Troponin I 1.46 ng/mL H* D 05/11/18 08:30 Total Protein 6.2 g/dL (5.8-8.3) 05/16/18 06:30 Albumin 3.8 g/dL (3.0-4.8) 05/16/18 06:30 Globulin 2.4 gm/dL 05/16/18 06:30 Albumin/Globulin Ratio 1.6 (1.1-1.8) 05/16/18 06:30 Triglycerides 118 mg/dL (<150) 05/11/18 06:00 Cholesterol 136 mg/dL (<200) 05/11/18 06:00 LDL Cholesterol Direct 83 mg/dL 05/11/18 06:00 VLDL Cholesterol 16 mg/dL 05/11/18 06:00 HDL Cholesterol 37 mg/dL (> OR = 40) L 05/11/18 06:00 Lipase 448 U/L (23-300) H 05/11/18 06:00 Free T4 1.39 ng/dL (0.78-2.19) 05/13/18 04:10 TSH 3rd Generation 1.69 mIU/mL (0.46-4.68) 05/13/18 04:10 Arterial Blood Potassium 3.6 mmol/L (3.6-5.2) 05/10/18 08:44 Venous Blood Potassium 4.5 mmol/L (3.6-5.2) 05/10/18 05:35 Urine Color Yellow (YELLOW) 05/10/18 04:50 Urine Appearance Sl cloudy (CLEAR) 05/10/18 04:50 Urine pH 6.0 (4.7-8.0) 05/10/18 04:50 Ur Specific [place] 1.020 (1.005-1.035) 05/10/18 04:50 Urine Protein 30 mg/dL (<30 mg/dL) H 05/10/18 04:50 Urine Glucose (UA) >=1000 mg/dL (NEGATIVE) 05/10/18 04:50 Urine Ketones 40 mg/dL (NEGATIVE) H 05/10/18 04:50 Urine Blood Large (NEGATIVE) H 05/10/18 04:50 Urine Nitrate Negative (NEGATIVE) 05/10/18 04:50 Urine Bilirubin Negative (NEGATIVE) 05/10/18 04:50 Urine Urobilinogen 0.2 E.U./dL (<1 E.U./dL) 05/10/18 04:50 Ur Leukocyte Esterase Negative Ubaldo/uL (NEGATIVE) 05/10/18 04:50 Urine RBC 1 - 3 /hpf (0-2) 05/10/18 04:50 Urine WBC 1 - 3 /hpf (0-6) 05/10/18 04:50 Ur Epithelial Cells 1 - 3 /hpf (0-5) 05/10/18 04:50 Urine Bacteria Rare (NEG) 05/10/18 04:50 Alcohol, Quantitative < 10 mg/dL (0-10) 05/10/18 07:55 HIV 1&2 Ag/Ab, 4th Gen Nonreactive (Nonreactive) 05/10/18 15:59 - Hospital Course Hospital Course: Nawaf Hogan DO PGY1 - Internal medicine [employer] - Hospital Discharge Summary 58M w/ past medical history of diabetes with insulin pump, hypertension, bicuspid aortic valve, rhabdomyolysis, and hyperlipidemia presented to [facility] on 05/10 with AMS. Prior to presentation to [facility] patient reported that he was experiencing nausea and vomiting days prior. Patient was found to have SIRS, DKA , and hyperkalemia in ED. In the ED, CXR showed no active disease, EKG showed normal sinus tachcarida, and CTAP showed no acute findings. His lab work also noted to have significant leukocytosis, and pre-renal MARCELLE and an elevated lipase. He was started on fluids, administered calcium gluconate, and Subsequently transferred to ICU. In the ICU, patient received empiric abx, maintenance fluid, and insulin gtt. Patient's anion gap, acidosis, and fingerstick glucose were monitored, and endocrinology was consulted. His anion gap closed, and acidosis was resolved with insulin drip. His MARCELLE resolved w/ agressive IVF rehydration. While in the ICU patient was noted to have some episodes of paroxysmal atrial fibrillation most likely thought to be 2/2 to metabolic/electrolyte abnormalities. His troponins were drawn, and found to be elevated w/ upward trend over serial draws. Repeat EKG showed no ischemic changes, and cardiology was consulted. Echocardiogram showed no signs of systolic or diastolic dysfunction; EF reported at 63%. Infectious disease was consulted while patient was in ICU to r/o infectious etiology as precipitating factor for DKA. He was started on epiric abx, blood cultures were drawn and returned negative. An infectious etiology for leukocytosis/ SIRS was ruled out; empiric Abx were DC'd. Patient was transferred from ICU to [facility], insulin drip DC'd, Levemir/ humalog regimen started, and diet was gradually advanced. Once stabilized patient underwent nuclear stress testing by cardiology, and found to have an rey- septal defect. During ICU course patient made vague statements regarding his wishes to ; palliative care was consulted and patient had signed POLST changing his status from full code to DNR/DNI. Prior to patient leaving facility, behavioral health was consulted to evaluate patient, and he was determined not to be a threat to himself or others. Patient's [place] psychiatrist Dr. Augustin was contacted and patient was aware of an appointment that was made for him on 05/17/18. Of note, patient was not medically cleared for discharge. On 05/15/18 Patient wanted to leave AMA. On this day he was counseled thoroughly on the risks regarding leaving AMA that were including but not limited to: injury, temporary disability, permanent disability, deconditioning, worsening of known/unknown conditions, and . His medical conditions were reviewed with him, and he was counseled on his conditions and necessary follow up. Patient however decided that he would stay overnight and did not want to leave. On 05/16/18 patient was refusing to be examined and was refusing further hospital stay. He did not want to sign any AMA paperwork and did not wait for any resident/attending physician to speak to him before he left the floors. Please note this is a discharge summary. For full hospital course please refer to medical records. - Date & Time of H&P Date of H&P: 05/10/18 Time of H&P: 04:00 Discharge Plan - Discharge Medications Prescriptions: Lisinopril [Zestril] 40 mg PO DAILY #14 tab Metoprolol Tartrate [Lopressor] 50 mg PO BRKDIN #28 tab - Follow Up Plan Condition: SERIOUS Disposition: AGAINST MEDICAL ADVICE Instructions: Diabetic Ketoacidosis (DC) Additional Instructions: Please follow up with your primary care doctor Dr. Sullivan within 3-5 days Please follow up with your diabetes nurse; Kimberlee Velasco within 3-5 days. Please review your pump settings with CHRIS Velasco to confirm that they are correct. Please follow up with your psychiatrist, Dr. Alan, on Thursday 05/17 at 9AM-11: 30AM. This appointment is a walk. Please continue all home medications: Divalproex 500mg at bedtime Lipitor 40mg daily Plavix 75mg daily Lisinopril 5mg daily Memantine 10mg daily Please continue these Insulin Pump settings until you follow up with CHRIS Velasco: ICR: 1:5 12 AM: 40 units 8AM: 40 units If you have thoughts of hurting yourself or others or should your presenting symptoms return, please seek emergency medical attention immediately. <Michelle Spears - Last Filed: 05/17/18 13:26> Provider - Provider Date of Admission: 05/10/18 02:59 Attending physician: Michelle Spears MD Hospital Course - Lab Results Lab Results: Micro Results 05/10/18 06:40 Nose MRSA Culture (Admit) - Final MRSA NOT DETECTED 05/10/18 22:31 Stool C. difficile Antigen & Toxin A,B (M - Final Most Recent Lab Values WBC 5.3 10^3/ul (4.5-11.0) 05/16/18 06:30 RBC 4.31 10^6/uL (3.5-6.1) 05/16/18 06:30 Hgb 12.7 g/dL (14.0-18.0) L 05/16/18 06:30 Hct 35.4 % (42.0-52.0) L 05/16/18 06:30 MCV 82.1 fl (80.0-105.0) 05/16/18 06:30 MCH 29.5 pg (25.0-35.0) 05/16/18 06:30 MCHC 35.9 g/dl (31.0-37.0) 05/16/18 06:30 RDW 11.7 % (11.5-14.5) 05/16/18 06:30 Plt Count 254 10^3/uL (120.0-450.0) 05/16/18 06:30 MPV 9.6 fl (7.0-11.0) 05/16/18 06:30 Gran % 51.8 % (50.0-68.0) 05/16/18 06:30 Lymph % (Auto) 34.8 % (22.0-35.0) 05/16/18 06:30 [place] % (Auto) 11.7 % (1.0-6.0) H 05/16/18 06:30 Eos % (Auto) 1.5 % (1.5-5.0) 05/16/18 06:30 Baso % (Auto) 0.2 % (0.0-3.0) 05/16/18 06:30 Gran # 2.74 (1.4-6.5) 05/16/18 06:30 Lymph # (Auto) 1.8 (1.2-3.4) 05/16/18 06:30 [place] # (Auto) 0.6 (0.1-0.6) 05/16/18 06:30 Eos # (Auto) 0.1 (0.0-0.7) 05/16/18 06:30 Baso # (Auto) 0.01 K/mm3 (0.0-2.0) 05/16/18 06:30 Neutrophils % (Manual) 83 % (50.0-70.0) H 05/10/18 05:35 Band Neutrophils % 7 % (0-2) H 05/10/18 05:35 Lymphocytes % (Manual) 4 % (22.0-35.0) L 05/10/18 05:35 Monocytes % (Manual) 6 % (1.0-6.0) 05/10/18 05:35 Differential Comment See pathology report 05/10/18 05:35 Platelet Evaluation Normal (NORMAL) 05/10/18 05:35 PT 16.6 SECONDS (9.4-12.5) H 05/09/18 23:50 INR 1.45 05/09/18 23:50 APTT 70.8 Seconds (25.1-36.5) H 05/13/18 04:10 pCO2 24 mm/Hg (35-45) L 05/10/18 08:44 pO2 117.0 mm/Hg (80-100) H 05/10/18 08:44 HCO3 12.4 mmol/L (21-28) L 05/10/18 08:44 ABG pH 7.32 (7.35-7.45) L 05/10/18 08:44 ABG Total CO2 13.1 mmol.L (22-28) L 05/10/18 08:44 ABG O2 Saturation 99.2 % (95-98) H 05/10/18 08:44 ABG Base Excess -11.8 mmol/L (-2.0-3.0) L 05/10/18 08:44 ABG Potassium 3.6 mmol/L (3.6-5.2) 05/10/18 08:44 VBG pH 7.12 (7.32-7.43) L* 05/10/18 05:35 VBG pCO2 26.0 (40-60) L 05/10/18 05:35 VBG HCO3 8.5 mmol/l (21-28) L 05/10/18 05:35 VBG Total CO2 9.3 mmol.L (22-28) L 05/10/18 05:35 VBG O2 Sat (Calc) 76.4 % (40-65) H 05/10/18 05:35 VBG Base Excess -19.4 mmol/L (0.0-2.0) L 05/10/18 05:35 VBG Potassium 4.5 mmol/L (3.6-5.2) 05/10/18 05:35 Sodium 135.0 mmol/L (132-148) 05/10/18 08:44 Chloride 103.0 mmol/L (98-107) 05/10/18 08:44 Glucose 613 mg/dl (75-110) H* 05/10/18 08:44 Lactate 1.9 mmol/L (0.7-2.1) 05/10/18 08:44 FiO2 28.0 % 05/10/18 08:44 Sodium 139 mmol/L (132-148) 05/16/18 06:30 Potassium 4.0 mmol/L (3.6-5.0) 05/16/18 06:30 Chloride 102 mmol/L (98-107) 05/16/18 06:30 Carbon Dioxide 27 mmol/L (21-33) 05/16/18 06:30 Anion Gap 14 (10-20) 05/16/18 06:30 BUN 20 mg/dL (7-21) 05/16/18 06:30 Creatinine 0.8 mg/dl (0.8-1.5) 05/16/18 06:30 Est GFR ( Amer) > 60 05/16/18 06:30 Est GFR (Non-Af Amer) > 60 05/16/18 06:30 POC Glucose (mg/dL) 245 mg/dL (65-110) H 05/16/18 07:35 Random Glucose 253 mg/dL (70-110) H 05/16/18 06:30 Hemoglobin A1c 7.7 % (4.2-6.5) H 05/10/18 07:00 Calcium 9.4 mg/dL (8.4-10.5) 05/16/18 06:30 Phosphorus 4.2 mg/dL (2.5-4.5) 05/14/18 06:00 Magnesium 2.2 mg/dL (1.7-2.2) 05/14/18 06:00 Total Bilirubin 0.5 mg/dL (0.2-1.3) 05/16/18 06:30 AST 31 U/L (17-59) 05/16/18 06:30 ALT 52 U/L (7-56) 05/16/18 06:30 Alkaline Phosphatase 79 U/L (38-126) 05/16/18 06:30 Total Creatine Kinase 417 U/L (35-230) H 05/11/18 06:00 CK-MB (CK-2) 9.4 ng/mL (0.0-3.6) H 05/11/18 06:00 CK-MB (CK-2) % 2.3 % (2.5-3.0) L 05/11/18 06:00 Troponin I 1.46 ng/mL H* D 05/11/18 08:30 Total Protein 6.2 g/dL (5.8-8.3) 05/16/18 06:30 Albumin 3.8 g/dL (3.0-4.8) 05/16/18 06:30 Globulin 2.4 gm/dL 05/16/18 06:30 Albumin/Globulin Ratio 1.6 (1.1-1.8) 05/16/18 06:30 Triglycerides 118 mg/dL (<150) 05/11/18 06:00 Cholesterol 136 mg/dL (<200) 05/11/18 06:00 LDL Cholesterol Direct 83 mg/dL 05/11/18 06:00 VLDL Cholesterol 16 mg/dL 05/11/18 06:00 HDL Cholesterol 37 mg/dL (> OR = 40) L 05/11/18 06:00 Lipase 448 U/L (23-300) H 05/11/18 06:00 Free T4 1.39 ng/dL (0.78-2.19) 05/13/18 04:10 TSH 3rd Generation 1.69 mIU/mL (0.46-4.68) 05/13/18 04:10 Arterial Blood Potassium 3.6 mmol/L (3.6-5.2) 05/10/18 08:44 Venous Blood Potassium 4.5 mmol/L (3.6-5.2) 05/10/18 05:35 Urine Color Yellow (YELLOW) 05/10/18 04:50 Urine Appearance Sl cloudy (CLEAR) 05/10/18 04:50 Urine pH 6.0 (4.7-8.0) 05/10/18 04:50 Ur Specific [place] 1.020 (1.005-1.035) 05/10/18 04:50 Urine Protein 30 mg/dL (<30 mg/dL) H 05/10/18 04:50 Urine Glucose (UA) >=1000 mg/dL (NEGATIVE) 05/10/18 04:50 Urine Ketones 40 mg/dL (NEGATIVE) H 05/10/18 04:50 Urine Blood Large (NEGATIVE) H 05/10/18 04:50 Urine Nitrate Negative (NEGATIVE) 05/10/18 04:50 Urine Bilirubin Negative (NEGATIVE) 05/10/18 04:50 Urine Urobilinogen 0.2 E.U./dL (<1 E.U./dL) 05/10/18 04:50 Ur Leukocyte Esterase Negative Ubaldo/uL (NEGATIVE) 05/10/18 04:50 Urine RBC 1 - 3 /hpf (0-2) 05/10/18 04:50 Urine WBC 1 - 3 /hpf (0-6) 05/10/18 04:50 Ur Epithelial Cells 1 - 3 /hpf (0-5) 05/10/18 04:50 Urine Bacteria Rare (NEG) 05/10/18 04:50 Alcohol, Quantitative < 10 mg/dL (0-10) 05/10/18 07:55 HIV 1&2 Ag/Ab, 4th Gen Nonreactive (Nonreactive) 05/10/18 15:59 Attending/Attestation - Attestation I have reviewed all pertinent clinical information, including history, physical exam and plan: Yes Notes (Text): 05/16/18 Patient left AMA this morning prior to being seen by attending.
== END 2018-05-16 09:28 | disposition left against medical advice (07) | DRG 637 ==
LOC: ED 23:33 → ERH 05-10 02:59 → CCU 05-10 04:56 → 3RNO 05-13 13:01
PROVIDERS: ADMIT Hospitalist; ATTEND Internal Medicine
DX: E10.10 Type 1 diabetes mellitus with ketoacidosis without coma (principal); K85.90 Acute pancreatitis without necrosis or infection, unspecified; G93.40 Encephalopathy, unspecified; I21.4 Non-ST elevation (NSTEMI) myocardial infarction; N17.9 Acute kidney failure, unspecified; E87.1 Hypo-osmolality and hyponatremia; R65.10 Systemic inflammatory response syndrome (SIRS) of non-infectious origin without acute organ dysfunction; E86.0 Dehydration; I48.0 Paroxysmal atrial fibrillation; I10 Essential (primary) hypertension; E78.5 Hyperlipidemia, unspecified; E87.5 Hyperkalemia; I35.0 Nonrheumatic aortic (valve) stenosis; Z66 Do not resuscitate; F43.10 Post-traumatic stress disorder, unspecified; F32.9 Major depressive disorder, single episode, unspecified; E83.51 Hypocalcemia; Z96.41 Presence of insulin pump (external) (internal); Z79.4 Long term (current) use of insulin; Z86.73 Personal history of transient ischemic attack (TIA), and cerebral infarction without residual deficits

== ENCOUNTER 2018-05-17 16:28 | Emergency (ER) | payer MEDICAID, OTHER ==
[2018-05-17 16:28] VITALS: BMI 28.2
[2018-05-17 16:43] VITALS: RESP 18; TEMP 98.5
--- NOTE | 2018-05-17 17:43 | ED PDOC ---
Arrival/HPI - History of Present Illness Time/Duration: 24 hours Symptom Onset: Gradual Symptom Course: Unchanged - General Chief Complaint: Finger,Hand,&Wrist Time Seen by Provider: 05/17/18 16:37 - History of Present Illness Narrative History of Present Illness (Text): 05/17/18 17:40 Patient is a 58 year old male with PMH DM2 with DKA (just left hospital yesterday, left AMA), rhabdomyolysis, AFib, and CAD who presents to ED for evaluation of a superficial wound on his left lateral hand. Patient states that he does not want any further evaluation, even though he left the hospital yesterday AMA. [facility] and that he is controlling his blood sugars. He refused any additional evaluation other than the wound on his left hand. (John Vera) Past Medical History - Provider Review Nursing Documentation Reviewed: Yes - Travel History Have you recently traveled outside [place] w/in the past 3 mons?: No - Infectious Disease Hx of Infectious Diseases: None - Cardiac Hx Cardiac Disorders: Yes (AV problems) Hx Atrial Fibrillation: Yes Hx Hypertension: Yes - Pulmonary Hx Respiratory Disorders: No - Neurological Other/Comment: unresponsive - HEENT Hx HEENT Disorder: No - Renal Hx Renal Disorder: No - Endocrine/Metabolic Hx Diabetes Mellitus Type 1: Yes - Hematological/Oncological Hx Blood Disorders: No - Integumentary Hx Dermatological Disorder: No - Musculoskeletal/Rheumatological Hx Musculoskeletal Disorders: No Hx Falls: Yes - Gastrointestinal Hx Gastrointestinal Disorders: No - Genitourinary/Gynecological Hx Genitourinary Disorders: No - Psychiatric Hx Psychophysiologic Disorder: No Hx Substance Use: No (denied by family) - Surgical History Other/Comment: Pt unable to recall - Anesthesia Hx Anesthesia: No - Suicidal Assessment Feels Threatened In Home Enviroment: No Family/Social History - Physician Review Nursing Documentation Reviewed: Yes Family/Social History: No Known Family HX Smoking Status: Unknown If Ever Smoked Hx Alcohol Use: No (denied by family) Hx Substance Use: No (denied by family) Hx Substance Use Treatment: No Allergies/Home Meds Allergies/Adverse Reactions: Allergies No Known Allergies Allergy (Verified 05/17/18 16:43) Home Medications: Home Meds Medication Instructions Recorded Confirmed Clopidogrel [Plavix] 75 mg PO DAILY 05/15/18 05/17/18 Memantine [Namenda] 10 mg PO DAILY 05/15/18 05/17/18 Review of Systems - Review of Systems Constitutional: absent: Fatigue, Fevers Eyes: absent: Vision Changes ENT: absent: Sore Throat, Rhinorrhea Respiratory: absent: SOB, Cough Cardiovascular: absent: Chest Pain, Palpitations Gastrointestinal: absent: Abdominal Pain, Nausea, Vomiting Genitourinary Male: absent: Dysuria Musculoskeletal: absent: Arthralgias Skin: absent: Rash, Pruritis Neurological: absent: Headache, Dizziness Endocrine: absent: Diaphoresis Psychiatric: absent: Anxiety, Depression Physical Exam Vital Signs Reviewed: Yes Temperature: Afebrile Blood Pressure: Normal Pulse: Regular Respiratory Rate: Normal Appearance: Positive for: Well-Appearing, Non-Toxic, Comfortable Pain Distress: None Mental Status: Positive for: Alert and Oriented X 3 - Systems Exam Head: Present: Atraumatic, Normocephalic Pupils: Present: PERRL Extroacular Muscles: Present: EOMI Conjunctiva: Present: Normal Ears: Present: Normal Mouth: Present: Moist Mucous Membranes Pharnyx: Present: Normal. No: ERYTHEMA, EXUDATE Neck: Present: Normal Range of Motion. No: JVD Respiratory/Chest: Present: Clear to Auscultation. No: Wheezes, Rales, Rhonchi Cardiovascular: Present: Regular Rate and Rhythm. No: Murmurs, Rub, Gallop Upper Extremity: Present: Normal Inspection, Other (superficial wound on left lateral hand, healing well, clean, dry, and intact) Lower Extremity: Present: Normal Inspection Neurological: Present: Speech Normal Skin: Present: Warm, Dry Psychiatric: Present: Alert, Oriented x 3 Vital Signs Temp Pulse Resp BP Pulse Ox 05/17/18 18:05 18 L 18 136/78 98 05/17/18 16:41 98.5 F 82 18 143/91 H 100 Medical Decision Making ED Course and Treatment: 05/17/18 17:45 -We offered full evaluation as patient left AMA yesterday pending a stress test with elevated troponin -Patient adamantly refused any evaluation, including fingerstick glucose, beyond the wound on his left hand -Would is not erythematous or purulent, it is clean, dry, and intact -Informed patient that he may use bacitracin ointment and to keep the wound moist -Patient states he will receive care [facility] for his other medical conditions , citing cost issues -Will discharge patient with information on wound care, encourage close follow up at [facility] (ChuyJohn) 05/17/18 19:38 pt seen w/resident. presents for eval of hand wound, declines any eval of dka, and previous admission. pt offered supportive treatment. no e/o of infection of wound. advise outpt fu. (Micheal Guerrero) Disposition/Present on Arrival - Present on Arrival Any Indicators Present on Arrival: Yes History of DVT/PE: No History of Uncontrolled Diabetes: Yes Urinary Catheter: No History of Decub. Ulcer: No History Surgical Site Infection Following: None - Disposition Have Diagnosis and Disposition been Completed?: Yes Disposition Time: 17:56 - Disposition Diagnosis: Skin ulcer of hand Disposition: HOME/ ROUTINE Condition: GOOD Forms: [facility] ([place]zeri)
[2018-05-17 18:06] VITALS: BP 136/78; PULSE 18; O2SAT 98
== END 2018-05-17 18:05 | disposition home or self-care (01) ==
LOC: ED 16:28
DX: L98.499 Non-pressure chronic ulcer of skin of other sites with unspecified severity (principal); I10 Essential (primary) hypertension; E11.9 Type 2 diabetes mellitus without complications; I25.10 Atherosclerotic heart disease of native coronary artery without angina pectoris; I48.91 Unspecified atrial fibrillation; M62.82 Rhabdomyolysis